=== PATIENT | male | born 1950 | race African-American/Black ===

== ENCOUNTER 2019-12-15 15:20 | Inpatient (IN) | payer MEDICARE, OTHER ==
[~2019-12-15 15:20] MED LIST: Iopamidol 370 76% 100 ML VIAL ONE
[2019-12-15] MEDS ORDERED: Ondansetron PF 4 MG/2 ML Vial IVP PRN (16:48)
[2019-12-15] MEDS ORDERED: Dextrose 50% Abboject 50 ML SYRINGE SLOW IVP PRN (16:58)
[2019-12-15] MEDS ORDERED: Dextrose 5% in Water 1,000 ML IV PRN (16:58)
--- NOTE | 2019-12-15 17:38 | CT ---
CTA CHEST WITH CONTRAST: Technique: Axial tomograms were obtained following angio protocol with multiplanar reconstruction and 3D post processing. Indications: Sepsis. Foot wound. Covid. FINDINGS: Pulmonary arteries show adequate opacification. There is no evidence of pulmonary embolus. Thoracic a marni is unremarkable. No dissection or aneurysm. Bilateral lung gunderson show bilateral pleural effusions which are moderate sized. This results in comp ressive atelectasis. There are patchy confluent infiltrates seen throughout both upper lobes, right middle lobe, and porti ons of the lower lobes that are aerated. These patchy areas of dense alveolar consolidation could rep resent Covid pneumonia or bacterial pneumonia. Mediastinum shows nonspecific mediastinal and hilar adenopathy. Images through the upper abdomen are unremarkable. IMPRESSION: 1. No evidence of pulmonary embolus. 2. Moderate bilateral pleural effusions with compressive atelectasis. 3. Patchy infiltrates seen throughout both lungs. The infiltrates are nonspecific and could represent bacterial or viral pneumonia. POS: AGW
--- NOTE | 2019-12-15 18:00 | HP ---
CHIEF COMPLAINT: Shortness of breath. HISTORY OF PRESENT ILLNESS: The patient is a 69-year-old male with past medical history of hypertension, diabetes mellitus type 2, hyperlipidemia, atrial fibrillation, and peripheral vascular disease, who recently had a partial amputation of his right great toe due to osteomyelitis and gangrene and also had a revascularization surgery with balloon angioplasty of his right lower extremity arteries. The patient was discharged with a wound VAC and oral antibiotics per ID recommendations. During followup from Home Health today, they noted the patient was short of breath and he was instructed to seek ER attention. In the ED, the patient was found to be hypoxic and his chest x-ray revealed bilateral infiltrates with differential diagnosis including volume overload versus COVID-19. We were asked to assess this patient for further management. PAST MEDICAL HISTORY: Osteomyelitis of the right great toe, peripheral vascular disease, atrial fibrillation, hypertension, and hyperlipidemia. PAST SURGICAL HISTORY: Amputation of the right great toe and revascularization of the right lower extremity and peripheral vascular disease. ALLERGIES: NO KNOWN DRUG ALLERGIES. SOCIAL HISTORY: The patient is a former smoker. Denies alcohol use or illicit drug use. PHYSICAL EXAMINATION: GENERAL: The patient is alert and oriented x3. HEENT: Head is normocephalic and atraumatic. Extraocular muscles are intact. Pupils equal and reactive to light. CHEST: Auscultation revealed crackles bilaterally. CARDIOVASCULAR: Normal S1 and S2. No murmurs, rubs or gallops. ABDOMEN: Soft, nontender, and nondistended. NEUROLOGIC: Unremarkable. ASSESSMENT: 1. Sepsis. 2. Acute hypoxic respiratory failure. 3. Pneumonia versus COVID-19 versus pulmonary edema. 4. Recent history of osteomyelitis of the right great toe. PLAN: 1. Admit to telemetry. Start IV vancomycin and cefepime, pharmacy to dose. 2. Follow up on COVID-19 test results. 3. Start Lasix 20 mg IV twice daily. 4. Check echocardiogram. 5. Wound care consult. 6. Check 2 sets of blood cultures. 7. Heparin for DVT prophylaxis. Job ID: [id number]
[2019-12-15 19:51] LABS: Troponin I 0.018 ng/mL (< 0.028)
[2019-12-15 20:55] LABS: Troponin I 0.029 ng/mL (< 0.028)
[2019-12-16] MEDS: Cefepime 1 GM in Sodium Chloride 0.9% 100 ML IVPB SCH ×3 (00:25→23:09)
[2019-12-16] MEDS: metFORMIN 500 MG TAB PO SCH ×2 (00:45→10:03)
[2019-12-16] MEDS: Atorvastatin Calcium 20 MG TAB PO SCH ×2 (00:46→20:42)
[2019-12-16] MEDS: Lactinex Tablet PO SCH ×3 (00:46→20:42)
[2019-12-16] MEDS: Heparin 5,000 UNITS/ML VIAL SC SCH ×4 (00:46→20:43)
[2019-12-16] MEDS: hydrALAZINE 20 MG/ML VIAL SLOW IVP PRN ×3 (01:02→20:43)
[2019-12-16 04:58] LABS: #Basophils 0.1 thou/uL (0.0-0.2); #Eosinphils 0.1 thou/uL (0.0-0.7); #Lymphocytes 1.5 thou/uL (1.20-3.40); #Monocytes 0.9 thou/uL (0.11-0.59); #Neutrophils 12.1 thou/uL (1.40-6.50); %Basophils 0.5 % (0.0-1.0); %Eosinophils 0.6 % (0.0-10.0); %Lymphocytes 10.4 % (21.0-51.0); %Monocytes 6.1 % (0.0-10.0); %Neutrophils 82.3 % (42.0-75.0); Hemoglobin 8.9 g/dL (14.0-18.0); Mean Corpuscular HGB CONC 32.7 g/dL (32.0-36.0); Mean Corpuscular Hemoglobin 30.1 pg (27.0-31.0); Mean Corpuscular Volume 92.2 fL (78.0-98.0); Mean Platelet Volume 7.1 fL (7.4-10.4); Platelet Count 615 thou/uL (130-400); RBC Distribution Width 12.4 % (11.5-14.5); Red Blood Cell (RBC) Count 2.95 mill/uL (4.70-6.10); White Blood Cell (WBC) Count 14.7 thou/uL (4.8-10.8)
[2019-12-16 05:14] LABS: Anion Gap 14 mmol/L (10-20); BUN (Urea Nitrogen) 21 mg/dL (8.4-25.7); Calc. Creatinine Clearance 95 mL/min (70-130); Calcium 8.5 mg/dL (7.8-10.44); Carbon Dioxide 21 mmol/L (23-31); Chloride 110 mmol/L (98-107); Estimated GFR-MDRD 73; Glucose 178 mg/dL (80-115); Potassium 3.8 mmol/L (3.5-5.1); Sodium 141 mmol/L (136-145)
[2019-12-16] MEDS ORDERED: Furosemide 20 MG/2 ML VIAL SLOW IVP SCH (06:00)
[2019-12-16] MEDS: Amlodipine 5 MG TAB PO SCH (10:03)
[2019-12-16] MEDS: Alogliptin 6.25 MG TAB PO SCH (10:03)
[2019-12-16] MEDS: Clopidogrel Bisulfate 75 MG TAB PO SCH (10:03)
[2019-12-16] MEDS: HumaLOG 300 UNITS/3 ML VIAL SC PRN ×2 (10:15→12:46)
[2019-12-16] MEDS: prednisoLONE 1% Ophth Susp 5 ml Bottle EA EYE SCH (12:57)
[2019-12-16] MEDS ORDERED: Sodium Chloride 0.9% 10 ML ONE (14:06)
[2019-12-16] MEDS: Vancomycin HCl 1.75 GM in Sodium Chloride 0.9% 500 ML IVPB SCH (14:29)
[2019-12-16] MEDS: Furosemide 40 MG/4 ML VIAL SLOW IVP SCH (14:29)
[2019-12-16] MEDS: Amlodipine 5 mg/Benazepril 20 mg CAP PO SCH (14:30)
[2019-12-16 14:37] LABS: INR-International Normal Ratio 1.3; Prothrombin Time 16.1 sec (12.0-14.7)
--- NOTE | 2019-12-16 14:51 | PDOC.HOSPP ---
- Subjective Encounter Date: 12/16/19 Subjective: It atrial fibrillationThe patient stated that his shortness of breath has been improving. - Objective Vital Signs & Weight: Vital Signs (12 hours) Temp Pulse Pulse Resp BP BP BP 12/16/19 11:37 97.6 F 96 19 12/16/19 10:36 98 164/79 H 195/86 H 12/16/19 10:19 86 186/86 H 12/16/19 10:03 86 186/86 H 12/16/19 07:46 98.3 F 86 20 12/16/19 03:20 98.3 F 96 20 BP Pulse Ox Pulse Ox Pulse Ox 12/16/19 11:37 156/70 H 93 L 12/16/19 10:36 93 L 113 H 12/16/19 10:19 12/16/19 10:03 12/16/19 07:46 186/86 H 95 12/16/19 03:20 171/81 H 95 Weight Admit Weight 253 lb 3.2 oz Weight 253 lb 3.2 oz Result Diagrams: 12/16/19 04:31 12/16/19 04:31 Additional Labs: Accuchecks 12/16/19 12/16/19 11:22 06:10 POC Glucose 195 H 189 H Hospitalist ROS - Medication Medications: Active Medications Generic Name Dose Route Start Last Admin Trade Name Freq PRN Reason Stop Dose Admin Acidophilus 1 tab 12/15/19 21:00 12/16/19 10:02 Floranex PO 1 tab BID ERWIN Administration Alogliptin Benzoate 6.25 mg 12/16/19 09:00 12/16/19 10:03 Alogliptin PO 6.25 mg DAILY ERWIN Administration Amlodipine Besylate 5 mg 12/16/19 09:00 12/16/19 10:03 Norvasc PO 5 mg DAILY ERWIN Administration Amlodipine/Benazepril HCl 2 cap 12/16/19 11:30 12/16/19 14:30 Lotrel 5/20 PO 2 cap DAILY ERWIN Administration Atorvastatin Calcium 20 mg 12/15/19 21:00 12/16/19 00:46 Lipitor PO 20 mg HS ERWIN Administration Clopidogrel Bisulfate 75 mg 12/16/19 09:00 12/16/19 10:03 Plavix PO 75 mg DAILY ERWIN Administration Furosemide 40 mg 12/16/19 14:00 12/16/19 14:29 Lasix SLOW IVP 40 mg 0600,1400 ERWIN Administration Heparin Sodium (Porcine) 5,000 units 12/15/19 21:00 12/16/19 14:31 Heparin SC 5,000 units TID ERWIN Administration Hydralazine HCl 10 mg 12/16/19 00:34 12/16/19 10:19 Apresoline SLOW IVP 10 mg Q4H PRN Administration SBP > 180 or DBP > 105 Cefepime HCl 1 gm/ Sodium 100 mls @ 200 mls/hr 12/15/19 23:00 12/16/19 10:00 Chloride IVPB 100 mls 1100,2300 ERWIN Administration Vancomycin HCl 1.75 gm/ Sodium 500 mls @ 250 mls/hr 12/16/19 13:00 12/16/19 14:29 Chloride IVPB 500 mls Q24HR@1300 ERWIN Administration Insulin Human Lispro 0 units 12/15/19 16:58 12/16/19 12:46 Humalog SC 2 unit .MODERATE SLIDING SC PRN Administration Moderate Correctional Scale Prednisolone Acetate 1 drop 12/17/19 09:00 12/16/19 12:57 Econopred Plus 1% Opth Susp EA EYE 1 drop DAILY ERWIN Administration - Exam General Appearance: awake alert ENT: normocephalic atraumatic Neck: supple, no JVD Heart: RRR Respiratory: normal chest expansion, no tachypnea Neurological: cranial nerve grossly intact, no focal deficits Hosp A/P (1) Bilateral pneumonia Code(s): J18.9 - PNEUMONIA, UNSPECIFIED ORGANISM Status: Acute (2) Acute respiratory failure with hypoxia Code(s): J96.01 - ACUTE RESPIRATORY FAILURE WITH HYPOXIA Status: Acute (3) Bilateral pleural effusion Code(s): J90 - PLEURAL EFFUSION, NOT ELSEWHERE CLASSIFIED Status: Acute (4) Suspected CHF (congestive heart failure) Code(s): R09.89 - OTH SYMPTOMS AND SIGNS INVOLVING THE CIRC AND RESP SYSTEMS Status: Acute (5) Atrial fibrillation Code(s): I48.91 - UNSPECIFIED ATRIAL FIBRILLATION Status: Acute (6) Osteomyelitis of great toe of right foot Code(s): M86.9 - OSTEOMYELITIS, UNSPECIFIED Status: Acute (7) Peripheral vascular disease Code(s): I73.9 - PERIPHERAL VASCULAR DISEASE, UNSPECIFIED Status: Acute (8) Sepsis Code(s): A41.9 - SEPSIS, UNSPECIFIED ORGANISM Status: Acute - Plan Sepsis and respiratory failure likely due to bilateral pneumonia with parapneumonic effusions. CHF with exacerbation is also in the differential. Continue IV antibiotics and diuresis. Hold Plavix for thoracentesis on Sunday. Consult surgery for evaluation of his necrotic wound in his right foot. ID consulted. His rapid COVID-19 test is negative.
--- NOTE | 2019-12-16 16:54 | CON ---
DATE OF CONSULTATION: HISTORY OF PRESENT ILLNESS: Tony Aguayo is a 69-year-old black male patient, admitted by the hospitalist today for complaints of dyspnea. He had COVID test, is negative. He has infiltrates and has been treated for pneumonia. He was started on IV vancomycin and cefepime. I have been asked to see him regarding his right foot. He has dry gangrene of his right great toe and ulceration of the plantar heel area. The patient was seen earlier this month at [facility] where Dr. Scott and Dr. Leander Case attending right foot problem. He has PAD. There is no history of smoking, but he does have diabetes and hypertension. Dr. Scott on 12/08/2019 performed an arteriogram, noting that he had mild arteriosclerotic disease in his iliac and superficial femoral artery, although not occlusive. He underwent RIG BUILDER of his right anterior tib, right tibioperoneal trunk with balloon angioplasty. He was noted to have right posterior tibial artery occlusion and mid stenosis in the right tibioperoneal trunk. Left side revealed 10% stenosis in the common iliac artery. Left external iliac artery normal. Left common femoral artery patent. No documentation of his peripheral runoff was given. He then underwent partial amputation of his right great toe with a Cecil drain placed and partial closure. Of note is that he has dry gangrene of the distal half of his great toe right and now plantar ulcer. There is no evidence of infection currently. ALLERGIES: NONE. HABITS: Tobacco, none. Alcohol, none. Drug use, none. MEDICATIONS: Outpatient: 1. Multivitamins. 2. Amlodipine. 3. Cipro. 4. Atorvastatin. 5. Augmentin. 6. Lactobacillus. 7. Plavix. 8. Prednisone. 9. Aspirin. 10. Insulin. 11. Metformin. PAST SURGICAL HISTORY: 1. Right foot surgery as noted. 2. Previous endoscopies in 2015, upper and lower endoscopy, Dr. Ruth Morris. PAST MEDICAL HISTORY: 1. Osteomyelitis, right great toe. 2. PAD. 3. Atrial fibrillation. 4. Hypertension. 5. Hyperlipidemia. 6. Diabetes mellitus. REVIEW OF SYSTEMS: Ten-point noncontributory otherwise. PHYSICAL EXAMINATION: VITAL SIGNS: Height 5 feet 9 inches, weight 253 pounds, 37 BMI, temperature 97.6, heart rate 96, and blood pressure 150/70. HEAD, EARS, EYES, NOSE, AND THROAT: Unremarkable. LUNGS: Clear to auscultation. CARDIAC: Regular rate and rhythm without murmur or gallop. ABDOMEN: Soft and nontender. EXTREMITIES: Palpable femoral pulses. Mild edema of both ankles. Right great toe dry gangrene. Reed present, removed. Sutures present in the necrotic skin flaps, right great toe from proximal amputation. Plantar wound under the calcaneus with desiccated subcutaneous tissue, necrotic, without cellulitis, without infection, without purulence. There is some underlying. ASSESSMENT AND PLAN: 1. Peripheral arterial disease with dry gangrene, right great toe, status post interventions by Dr. Scott. We would plan amputation of the right great toe more proximally. There is a possibility this may not heal. We will ask Wound Care to tend this wound and let it heal secondarily. 2. Plantar right heel ulceration, although this is not decubitus exactly. I would advise he keep his weight off his heels and local wound care after debridement of the heel ulcer. He is at risk of limb loss and we will see how he fares after the above interventions. 3. Diabetes mellitus. 4. Hypertension. 5. Peripheral arterial disease. 6. Pneumonia. Antibiotics per Medical. 7. COVID negative. Job ID: [id number]
--- NOTE | 2019-12-16 18:50 | CON ---
DATE OF CONSULTATION: 12/16/2019 REASON FOR CONSULTATION: Pulmonary edema, possible infection. HISTORY OF PRESENT ILLNESS: A 69-year-old whom we had seen recently when he presented with history of type 2 diabetes and PVD, who developed progressively worsening inflammatory changes with gangrene of the right great toe, associated with an open wound in the bottom of his heel. The patient had a vascular evaluation and had a revascularization procedure and that consisted of balloon angioplasty in the right anterior tibial artery, right tibioperoneal trunk, and right peroneal artery. He had a partial amputation of the toe and debridement of the heel. He was discharged on 12/10 on Cipro, Augmentin, Plavix, metformin, glipizide, and Januvia. At home, he was followed by home health nurse and then the nurse noticed that he was having trouble breathing, so she referred him to [facility] and was given a broad-spectrum antimicrobial coverage and he was admitted. Initial findings included BP 150/104, pulse 102, respirations 22, temperature 98.3, and O2 saturation 95. On arrival, he did not appear in distress. There is no jugular vein distention. Lung exam showed clear lungs sounds without wheezing. The abdomen is soft. The heart exam was normal. He had a wound VAC in place at the heel of the right foot and a Reed drain in the large toe of the right foot. The patient currently is feeling better. He has no more dyspnea. He is breathing with room air O2 sats. He denies any headaches. No chest pain. No abdominal pain. He is voiding in the urinal. He was given diuretics. PAST MEDICAL HISTORY: Includes: 1. Type 2 diabetes. 2. Peripheral vascular disease. 3. Hypertension. 4. Hyperlipidemia. FAMILY HISTORY: Noncontributory. PAST SURGICAL HISTORY: 1. Partial amputation of right 1st toe. 2. Revascularization procedure with various SOFT MUD MOLDER and stents recently. 3. He has had colonoscopies and polypectomy. SOCIAL HISTORY: Former smoker, quit 35 years ago. Retired. Lives in [place] with family. CURRENT MEDICATION LIST: 1. Floranex. 2. Alogliptin. 3. Norvasc. 4. Lotrel. 5. Ecotrin. 6. Lipitor. 7. Cefepime. 8. Plavix. 9. Lovenox. 10. Lasix. 11. Heparin. 12. Insulin. 13. Zofran. 14. Prednisolone eye drops. 15. Vancomycin. PHYSICAL EXAMINATION: VITAL SIGNS: He has been afebrile since admission. Blood pressure 150/70, pulse 96, respirations 19, and O2 saturation ranging from 93 to 98 and he is on room air O2 and right now he had been on 1.5 L/minute. SKIN: The area of gangrene at the very tip of the amputation site and the heel area shows desiccated subcutaneous tissue, but no obvious inflammatory process. The toe stump site has dry gangrene. HEENT: He has some periorbital edema. His oral cavity with numerous missing teeth. NECK: Supple. LUNGS: Symmetric air entry without crackles or wheezing. HEART: S1 and S2. Regular rate. ABDOMEN: Soft, not distended or tender. No ascites. No bladder distention. EXTREMITIES: No joint inflammatory activity. Popliteal pulses are 1+ and faintly palpable dorsalis pedis, LABORATORY DATA: White cell count 14.7, hemoglobin 8.9, platelets 615, and 82% neutrophils. Creatinine 1.19, which is lower than on admission. Two sets of blood cultures preliminary, no growth to date. ASSESSMENT AND DISCUSSION: 1. Type 2 diabetes. 2. Peripheral vascular disease. 3. Necrotic right distal 1st toe with dry gangrene with partial amputation and areas of ulceration in the right heel. The patient has had revascularization, but has some areas still of questionable viability in the foot. This decompensation now appears to be related to pulmonary edema rather than an infectious pneumonitis. His repeat COVID test was negative and I would advise discontinuation of antimicrobial therapy once the blood culture results are posted hopefully by tomorrow. Job ID: [id number]
[2019-12-16] MEDS ORDERED: Enoxaparin Sodium 40 MG/0.4 ML SYRINGE SC SCH (21:00)
[2019-12-17] MEDS: hydrALAZINE 20 MG/ML VIAL SLOW IVP PRN (03:31)
[2019-12-17] MEDS: HYDROcodone/Acetaminophen 5/325 mg Tablet PO PRN (03:32)
[2019-12-17 03:44] LABS: #Eosinphils 0.1 thou/uL (0.0-0.7); %Basophils 0.3 % (0.0-1.0); %Eosinophils 0.9 % (0.0-10.0); %Lymphocytes 16.4 % (21.0-51.0); %Monocytes 8.2 % (0.0-10.0); %Neutrophils 74.2 % (42.0-75.0); Hemoglobin 8.8 g/dL (14.0-18.0); Mean Corpuscular HGB CONC 32.7 g/dL (32.0-36.0); Mean Corpuscular Hemoglobin 30.1 pg (27.0-31.0); Mean Corpuscular Volume 92.1 fL (78.0-98.0); Mean Platelet Volume 7.4 fL (7.4-10.4); Platelet Count 617 thou/uL (130-400); RBC Distribution Width 12.4 % (11.5-14.5); Red Blood Cell (RBC) Count 2.91 mill/uL (4.70-6.10); White Blood Cell (WBC) Count 12.2 thou/uL (4.8-10.8)
[2019-12-17 04:05] LABS: Anion Gap 13 mmol/L (10-20); BUN (Urea Nitrogen) 25 mg/dL (8.4-25.7); Calc. Creatinine Clearance 84 mL/min (70-130); Calcium 8.1 mg/dL (7.8-10.44); Carbon Dioxide 21 mmol/L (23-31); Chloride 110 mmol/L (98-107); Estimated GFR-MDRD 64; Glucose 181 mg/dL (80-115); Potassium 3.5 mmol/L (3.5-5.1); Sodium 140 mmol/L (136-145)
[2019-12-17] MEDS: Furosemide 40 MG/4 ML VIAL SLOW IVP SCH ×2 (05:26→13:45)
[2019-12-17] MEDS: HumaLOG 300 UNITS/3 ML VIAL SC PRN ×3 (05:59→17:03)
[2019-12-17] MEDS: Aspirin 81 mg Enteric Coated Tablet PO SCH (09:24)
[2019-12-17] MEDS: Amlodipine 5 mg/Benazepril 20 mg CAP PO SCH (09:24)
[2019-12-17] MEDS: Lactinex Tablet PO SCH ×2 (09:24→20:35)
[2019-12-17] MEDS: Alogliptin 6.25 MG TAB PO SCH (09:26)
[2019-12-17] MEDS: Amlodipine 5 MG TAB PO SCH (09:26)
[2019-12-17] MEDS: Heparin 5,000 UNITS/ML VIAL SC SCH ×3 (09:26→20:35)
[2019-12-17] MEDS: prednisoLONE 1% Ophth Susp 5 ml Bottle EA EYE SCH (09:27)
[2019-12-17] MEDS: Cefepime 1 GM in Sodium Chloride 0.9% 100 ML IVPB SCH ×2 (11:18→23:52)
[2019-12-17 12:33] LABS: Vancomycin, Trough 21.5 ug/mL
[2019-12-17] MEDS: Vancomycin HCl 1.75 GM in Sodium Chloride 0.9% 500 ML IVPB SCH (13:22)
[2019-12-17] MEDS ORDERED: Vancomycin HCl 1.5 GM in Sodium Chloride 0.9% 250 ML 300 ML IVPB SCH (14:00)
--- NOTE | 2019-12-17 14:36 | PDOC.HOSPP ---
- Subjective Encounter Date: 12/17/19 Subjective: The patient stated that for shortness of breath is improving compared to yesterday. - Objective Vital Signs & Weight: Vital Signs (12 hours) Temp Pulse Resp BP BP BP Pulse Ox 12/17/19 11:17 98.3 F 98 18 178/77 H 93 L 12/17/19 09:00 97.4 F L 92 18 136/64 93 L 12/17/19 03:31 92 187/78 H 12/17/19 03:12 97.7 F 92 20 187/78 H 92 L Weight Admit Weight 253 lb 3.2 oz Weight 254 lb 3.2 oz I&O: 12/16/19 12/17/19 12/18/19 06:59 06:59 06:59 Intake Total 1662 Output Total 900 Balance 762 Result Diagrams: 12/17/19 03:23 12/17/19 03:23 Additional Labs: Accuchecks 12/17/19 12/17/19 12/16/19 10:47 05:18 20:07 POC Glucose 183 H 191 H 148 H 12/16/19 16:23 POC Glucose 165 H Hospitalist ROS - Medication Medications: Active Medications Generic Name Dose Route Start Last Admin Trade Name Freq PRN Reason Stop Dose Admin Hydrocodone Bitart/Acetaminophen 1 tab 12/15/19 16:48 12/17/19 03:32 [place]xe 5/325 PO 1 tab Q4H PRN Administration Moderate Pain (4-6) Acidophilus 1 tab 12/15/19 21:00 12/17/19 09:24 Floranex PO 1 tab BID ERWIN Administration Alogliptin Benzoate 6.25 mg 12/16/19 09:00 12/17/19 09:26 Alogliptin PO 6.25 mg DAILY ERWIN Administration Amlodipine Besylate 5 mg 12/16/19 09:00 12/17/19 09:26 Norvasc PO 5 mg DAILY ERWIN Administration Amlodipine/Benazepril HCl 2 cap 12/16/19 11:30 12/17/19 09:24 Lotrel 5/20 PO 2 cap DAILY ERWIN Administration Aspirin 81 mg 12/17/19 09:00 12/17/19 09:24 Ecotrin PO 81 mg DAILY ERWIN Administration Atorvastatin Calcium 20 mg 12/15/19 21:00 12/16/19 20:42 Lipitor PO 20 mg HS ERWIN Administration Clopidogrel Bisulfate 75 mg 12/16/19 09:00 12/16/19 10:03 Plavix PO 75 mg DAILY ERWIN Administration Furosemide 40 mg 12/17/19 14:00 12/17/19 13:45 Lasix SLOW IVP 40 mg 0600,1400 ERWIN Administration Heparin Sodium (Porcine) 5,000 units 12/15/19 21:00 12/17/19 13:46 Heparin SC 5,000 units TID ERWIN Administration Hydralazine HCl 10 mg 12/16/19 00:34 12/17/19 03:31 Apresoline SLOW IVP 10 mg Q4H PRN Administration SBP > 180 or DBP > 105 Cefepime HCl 1 gm/ Sodium 100 mls @ 200 mls/hr 12/15/19 23:00 12/17/19 11:18 Chloride IVPB 100 mls 1100,2300 ERWIN Administration Insulin Human Lispro 0 units 12/15/19 16:58 12/17/19 11:18 Humalog SC 2 unit .MODERATE SLIDING SC PRN Administration Moderate Correctional Scale Prednisolone Acetate 1 drop 12/17/19 09:00 12/17/19 09:27 Econopred Plus 1% Opth Susp EA EYE 1 drop DAILY ERWIN Administration - Exam General Appearance: awake alert ENT: normocephalic atraumatic Neck: supple Heart: RRR Respiratory: normal chest expansion, no tachypnea, rhonchi Neurological: cranial nerve grossly intact, no focal deficits Hosp A/P (1) Bilateral pneumonia Code(s): J18.9 - PNEUMONIA, UNSPECIFIED ORGANISM Status: Acute (2) Acute respiratory failure with hypoxia Code(s): J96.01 - ACUTE RESPIRATORY FAILURE WITH HYPOXIA Status: Acute (3) Bilateral pleural effusion Code(s): J90 - PLEURAL EFFUSION, NOT ELSEWHERE CLASSIFIED Status: Acute (4) Suspected CHF (congestive heart failure) Code(s): R09.89 - OTH SYMPTOMS AND SIGNS INVOLVING THE CIRC AND RESP SYSTEMS Status: Acute (5) Atrial fibrillation Code(s): I48.91 - UNSPECIFIED ATRIAL FIBRILLATION Status: Acute (6) Osteomyelitis of great toe of right foot Code(s): M86.9 - OSTEOMYELITIS, UNSPECIFIED Status: Acute (7) Peripheral vascular disease Code(s): I73.9 - PERIPHERAL VASCULAR DISEASE, UNSPECIFIED Status: Acute (8) Sepsis Code(s): A41.9 - SEPSIS, UNSPECIFIED ORGANISM Status: Acute - Plan Sepsis and respiratory failure likely due to bilateral pneumonia with parapneumonic effusions. CHF with exacerbation is also in the differential. Continue IV antibiotics and diuresis. Leukocytosis is improving. Echocardiogram revealed that the EF is 55 to 60%. BNP is elevated. Hold Plavix for thoracentesis on Sunday. Consult surgery for evaluation of his necrotic wound in his right foot. ID consulted. His rapid COVID-19 test is negative.
[2019-12-17] MEDS: Vancomycin 1.5 GRAM/300 ML BAG 1.5 GM in Premix Bag 1 BAG IVPB SCH (15:05)
[2019-12-17] MEDS: Atorvastatin Calcium 20 MG TAB PO SCH (20:35)
[2019-12-18] MEDS: Furosemide 40 MG/4 ML VIAL SLOW IVP SCH ×2 (05:53→13:25)
[2019-12-18 06:50] LABS: #Basophils 0.1 thou/uL (0.0-0.2); #Eosinphils 0.1 thou/uL (0.0-0.7); #Lymphocytes 2.1 thou/uL (1.20-3.40); #Monocytes 0.9 thou/uL (0.11-0.59); #Neutrophils 7.5 thou/uL (1.40-6.50); %Basophils 0.6 % (0.0-1.0); %Eosinophils 1.3 % (0.0-10.0); %Lymphocytes 19.8 % (21.0-51.0); %Monocytes 8.5 % (0.0-10.0); %Neutrophils 69.8 % (42.0-75.0); Hemoglobin 9.7 g/dL (14.0-18.0); Mean Corpuscular HGB CONC 32.1 g/dL (32.0-36.0); Mean Corpuscular Hemoglobin 30.2 pg (27.0-31.0); Mean Corpuscular Volume 94.2 fL (78.0-98.0); Mean Platelet Volume 7.3 fL (7.4-10.4); Platelet Count 642 thou/uL (130-400); RBC Distribution Width 12.5 % (11.5-14.5); Red Blood Cell (RBC) Count 3.22 mill/uL (4.70-6.10); White Blood Cell (WBC) Count 10.7 thou/uL (4.8-10.8)
[2019-12-18 07:07] LABS: Anion Gap 16 mmol/L (10-20); BUN (Urea Nitrogen) 24 mg/dL (8.4-25.7); Calc. Creatinine Clearance 80 mL/min (70-130); Calcium 8.3 mg/dL (7.8-10.44); Carbon Dioxide 18 mmol/L (23-31); Chloride 110 mmol/L (98-107); Estimated GFR-MDRD 59; Glucose 135 mg/dL (80-115); Potassium 3.8 mmol/L (3.5-5.1); Sodium 140 mmol/L (136-145)
[2019-12-18] MEDS: Aspirin 81 mg Enteric Coated Tablet PO SCH (08:12)
[2019-12-18] MEDS: Heparin 5,000 UNITS/ML VIAL SC SCH ×3 (08:12→20:23)
[2019-12-18] MEDS: Amlodipine 5 MG TAB PO SCH (08:12)
[2019-12-18] MEDS: Lactinex Tablet PO SCH ×2 (08:12→20:23)
[2019-12-18] MEDS: Alogliptin 6.25 MG TAB PO SCH (08:12)
[2019-12-18] MEDS: prednisoLONE 1% Ophth Susp 5 ml Bottle EA EYE SCH (08:13)
[2019-12-18] MEDS: Amlodipine 5 mg/Benazepril 20 mg CAP PO SCH (08:57)
[2019-12-18] MEDS: Cefepime 1 GM in Sodium Chloride 0.9% 100 ML IVPB SCH ×2 (10:44→23:20)
[2019-12-18] MEDS: HumaLOG 300 UNITS/3 ML VIAL SC PRN ×2 (10:45→17:03)
--- NOTE | 2019-12-18 10:52 | PQF ---
CLINICAL DOCUMENTATION CLARIFICATION FORM: Patient Name: JIGAR WALDROP Date of : 1950 Account: [id number] Admit Date: 12/15/2019 Facility: [facility] - [facility] Dear Dr. Hussain JORGENSEN Date: 12/18/2019 1031 Please exercise your independent, professional judgment in responding to the clarification form. Clinical indicators are provided on the bottom of this form for your review. Please check appropriate box(es): CONGESTIVE HEART FAILURE: A. ACUITY [ ] Acute [ > ] Acute on Chronic [ ] Chronic B. TYPE: [ ] Systolic / HFrEF [ >] Diastolic / HFpEF [ ] Combined Systolic / Diastolic [ ] Other diagnosis [ ] Unable to determine In addition, please specify: Present on Admission (POA): [ > ] Yes [ ] No [ ] Unable to determine For continuity of documentation, please document condition throughout progress notes and discharge summary. Thank You. To be completed by CDI/Coding staff for physician review: CLINICAL INDICATORS - SIGNS / SYMPTOMS / LABS / RESULTS AND LOCATION IN EMR 12/15 BNP 545.0 12/15 ECHO REPORT: EF 55-60%, PT IS TACHYCARDIC, MILD CONCENTRIC LEFT VENTRICULAR HYPERTROPHY, THE LEFT ATRIUM IS MILD TO MODERATE DILATED, MILD MITRAL REGURGITATION IS PRESENT. NO EVIDENCE OF MITRAL VALVE STENOSIS, STRUCTURALLY NORMAL AORTIC VALVE WITH NO SIGNIFICANT STENOSIS OR REGURGITATION. 12/17 PN (JOSLYN) CHF EXACERBATION IS ALSO IN THE DIFFERENTIAL, BNP IS ELEVATED , A/P:4). SUSPECTED CONGESTIVE HEART FAILURE. RISKS FACTORS / RESULTS AND LOCATION IN EMR DX: ACUTE RESPIRATORY FAILURE WITH HYPOXIA, BILATERAL PLEURAL EFFUSIONS (PN/ JOSLYN) 12/17 TREATMENTS / RESULTS AND LOCATION IN EMR LASIX IV ( 12/16- PRESENT) SUPPLEMENTAL OXYGEN ( 12/14-12/15) ECHO ORDERED ( 12/15) THANK YOU! JASON [facility] Signature: JASON BURNETTE RN Phone #: [phone] Date: 12/18/2019 1031 This is a permanent part of the Medical Record [facility]
[2019-12-18] MEDS: Vancomycin 1.5 GRAM/300 ML BAG 1.5 GM in Premix Bag 1 BAG IVPB SCH (13:25)
--- NOTE | 2019-12-18 15:19 | PDOC.HOSPP ---
- Subjective Encounter Date: 12/18/19 Subjective: The patient's respiratory status has been improving since admission. - Objective Vital Signs & Weight: Vital Signs (12 hours) Temp Pulse Resp BP BP Pulse Ox 12/18/19 11:00 98.2 F 75 18 151/75 H 96 12/18/19 08:12 81 182/77 H 12/18/19 08:00 97.9 F 81 18 182/77 H 96 12/18/19 04:00 98.0 F 88 18 163/66 H 93 L Weight Admit Weight 253 lb 3.2 oz Weight 256 lb I&O: 12/17/19 12/18/19 12/19/19 06:59 06:59 06:59 Intake Total 1662 700 Output Total 900 800 Balance 762 -100 Result Diagrams: 12/18/19 06:27 12/18/19 06:27 Additional Labs: Accuchecks 12/18/19 12/18/19 12/17/19 10:49 05:27 19:56 POC Glucose 237 H 142 H 190 H 12/17/19 16:50 POC Glucose 185 H Hospitalist ROS - Medication Medications: Active Medications Generic Name Dose Route Start Last Admin Trade Name Freq PRN Reason Stop Dose Admin Hydrocodone Bitart/Acetaminophen 1 tab 12/15/19 16:48 12/17/19 03:32 [place] 5/325 PO 1 tab Q4H PRN Administration Moderate Pain (4-6) Acidophilus 1 tab 12/15/19 21:00 12/18/19 08:12 Floranex PO 1 tab BID ERWIN Administration Alogliptin Benzoate 6.25 mg 12/16/19 09:00 12/18/19 08:12 Alogliptin PO 6.25 mg DAILY ERWIN Administration Aspirin 81 mg 12/17/19 09:00 12/18/19 08:12 Ecotrin PO 81 mg DAILY ERWIN Administration Atorvastatin Calcium 20 mg 12/15/19 21:00 12/17/19 20:35 Lipitor PO 20 mg HS ERWIN Administration Clopidogrel Bisulfate 75 mg 12/16/19 09:00 12/16/19 10:03 Plavix PO 75 mg DAILY ERWIN Administration Heparin Sodium (Porcine) 5,000 units 12/15/19 21:00 12/18/19 08:12 Heparin SC 5,000 units TID ERWIN Administration Hydralazine HCl 10 mg 12/16/19 00:34 12/17/19 03:31 Apresoline SLOW IVP 10 mg Q4H PRN Administration SBP > 180 or DBP > 105 Cefepime HCl 1 gm/ Sodium 100 mls @ 200 mls/hr 12/15/19 23:00 12/18/19 10:44 Chloride IVPB 100 mls 1100,2300 ERWIN Administration Vancomycin HCl 1.5 gm/ Device 300 mls @ 200 mls/hr 12/17/19 14:00 12/18/19 13 :25 IVPB 300 mls 1400 ERWIN Administration Insulin Human Lispro 0 units 12/15/19 16:58 12/18/19 10:45 Humalog SC 4 unit .MODERATE SLIDING SC PRN Administration Moderate Correctional Scale Prednisolone Acetate 1 drop 12/17/19 09:00 12/18/19 08:13 Econopred Plus 1% Opth Susp EA EYE 1 drop DAILY ERWIN Administration - Exam General Appearance: awake alert ENT: normocephalic atraumatic Respiratory: normal chest expansion, no tachypnea Gastrointestinal: soft Neurological: cranial nerve grossly intact, no focal deficits Hosp A/P (1) Bilateral pneumonia Code(s): J18.9 - PNEUMONIA, UNSPECIFIED ORGANISM Status: Acute (2) Acute respiratory failure with hypoxia Code(s): J96.01 - ACUTE RESPIRATORY FAILURE WITH HYPOXIA Status: Acute (3) Bilateral pleural effusion Code(s): J90 - PLEURAL EFFUSION, NOT ELSEWHERE CLASSIFIED Status: Acute (4) Suspected CHF (congestive heart failure) Code(s): R09.89 - OTH SYMPTOMS AND SIGNS INVOLVING THE CIRC AND RESP SYSTEMS Status: Acute (5) Atrial fibrillation Code(s): I48.91 - UNSPECIFIED ATRIAL FIBRILLATION Status: Acute (6) Osteomyelitis of great toe of right foot Code(s): M86.9 - OSTEOMYELITIS, UNSPECIFIED Status: Acute (7) Peripheral vascular disease Code(s): I73.9 - PERIPHERAL VASCULAR DISEASE, UNSPECIFIED Status: Acute (8) Sepsis Code(s): A41.9 - SEPSIS, UNSPECIFIED ORGANISM Status: Acute - Plan Sepsis and respiratory failure likely due to bilateral pneumonia with parapneumonic effusions. CHF with exacerbation is also in the differential. Continue IV antibiotics and diuresis. Leukocytosis is improving. Echocardiogram revealed that the EF is 55 to 60%. BNP is elevated. Hold Plavix for thoracentesis on Sunday. Since the patient has to be Plavix free for 5 days. Surgery planning on debridement tomorrow. Creatinine level is worsening likely due to diuresis. Decrease the dose of IV Lasix. DC lisinopril. Start clonidine 0.1 mg orally 3 times daily for uncontrolled blood pressure. His rapid COVID-19 test is negative.
[2019-12-18] MEDS ORDERED: Amlodipine 5 MG TAB PO SCH (15:30)
[2019-12-18] MEDS: cloNIDine 0.1 MG TAB PO SCH (20:23)
[2019-12-18] MEDS: Atorvastatin Calcium 20 MG TAB PO SCH (20:23)
[2019-12-19] MEDS: Aspirin 81 mg Enteric Coated Tablet PO SCH (09:14)
[2019-12-19] MEDS: cloNIDine 0.1 MG TAB PO SCH ×3 (09:14→20:30)
[2019-12-19] MEDS: Heparin 5,000 UNITS/ML VIAL SC SCH ×3 (09:15→20:28)
[2019-12-19] MEDS: Lactinex Tablet PO SCH ×2 (09:15→20:30)
[2019-12-19] MEDS: prednisoLONE 1% Ophth Susp 5 ml Bottle EA EYE SCH (09:22)
[2019-12-19] MEDS ORDERED: Fentanyl 100 MCG/2 ML VIAL ONE ×2 (11:01→12:55)
[2019-12-19] MEDS ORDERED: Ondansetron PF 4 MG/2 ML Vial ONE (11:35)
[2019-12-19] MEDS ORDERED: Lidocaine 1% PF 5 ML VIAL ONE (11:35)
[2019-12-19] MEDS ORDERED: PROPOFOL 200 MG/20 ML VIAL ONE (11:35)
[2019-12-19] MEDS ORDERED: Acetaminophen 500 MG TAB PO PRN (12:20)
[2019-12-19] MEDS ORDERED: traMADol HCl 50 MG TAB PO PRN (12:20)
--- NOTE | 2019-12-19 12:51 | OP ---
DATE OF PROCEDURE: 12/19/2019 PREOPERATIVE DIAGNOSES: Peripheral artery disease; non-COVID pneumonia; dry gangrene in right great toe; plantar decubitus heel open wound, stage IV, involving the calcaneus; previous intervention by Dr. Scott, tibial vessels; previous partial amputation of right great toe by Dr. Case; poor IV access. POSTOPERATIVE DIAGNOSES: Peripheral artery disease; non-COVID pneumonia; dry gangrene in right great toe; plantar decubitus heel open wound, stage IV, involving the calcaneus; previous intervention by Dr. Scott, tibial vessels; previous partial amputation of right great toe by Dr. Case; poor IV access. PROCEDURES PERFORMED: Amputation of right great toe and metatarsal (attempts to save the phalanx is not possible due to gangrenous tissue). Wound left open for healing by secondary intention and wound VAC applied. Debridement of skin, subcutaneous tissue, muscle, tendon, calcaneus, right plantar foot, stage IV decubitus wound without purulence and without cellulitis. Left subclavian vein triple-lumen catheter. ANESTHESIA: General LMA. DESCRIPTION OF PROCEDURE: The patient was taken to the operating room, where under general anesthesia, left dustin-clavicular was prepared with ChloraPrep and draped in routine fashion. Seldinger technique was used to place a left subclavian central line, removing the J-wire, securing the catheter with 3-0 silk. Sterile dressing applied. Each port aspirated blood and flushed saline solution. Right lower extremity was prepared with Betadine and draped in routine fashion. Incision was made for amputation of the distal right great toe, but there was gangrenous tissue that was not bleeding, would not heal, and more proximal amputation undertaken with amputation of the right great toe and metatarsal with a racquet incision made preserving skin as possible, resecting the metatarsal with a bone cutter and resecting approximately with a rongeur. Hemostasis was gained with cautery as connective tissue debrided. Wound Care Team arrived to place wound VAC. Right heel decubitus, plantar, debrided of necrotic skin and subcutaneous tissue. It was debrided back to bleeding tissue. The defect was about 4.5 cm in diameter. Extended down to the calcaneus, where the periosteum was resected with a rongeur and down to the calcaneus. Portion of the calcaneus was resected with a rongeur. There was good bleeding. Gauze dressing applied and then placed a wound VAC. The patient tolerated the procedure well. Job ID: [id number]
--- NOTE | 2019-12-19 13:48 | RAD ---
PORTABLE CHEST 1 VIEW: Date: 12/19/2019 Time: 1238 hours HISTORY: Central line placement. FINDINGS/IMPRESSION: Comparison made with exam of 12/15/2019. There has been interval placement of a left-sided subclavian central line with tip in the projection of the SVC. No pneumothoraces are seen. Perihilar opacities are again seen with new opacification of the right lower lobe. POS: MZA
[2019-12-19] MEDS: Alogliptin 6.25 MG TAB PO SCH (14:04)
[2019-12-19] MEDS: Furosemide 20 MG/2 ML VIAL SLOW IVP SCH (14:05)
[2019-12-19] MEDS: Amlodipine 10 MG TAB PO SCH (14:05)
[2019-12-19] MEDS: Vancomycin 1.5 GRAM/300 ML BAG 1.5 GM in Premix Bag 1 BAG IVPB SCH (14:10)
--- NOTE | 2019-12-19 14:11 | PDOC.HOSPP ---
- Subjective Encounter Date: 12/19/19 Subjective: For amputation procedure today. - Objective Vital Signs & Weight: Vital Signs (12 hours) Temp Pulse Resp BP Pulse Ox 12/19/19 08:00 95 12/19/19 07:37 97.8 F 65 20 144/66 H 95 Weight Admit Weight 253 lb 3.2 oz Weight 256 lb I&O: 12/18/19 12/19/19 12/20/19 06:59 06:59 06:59 Intake Total 700 2150 Output Total 800 1975 Balance -100 175 Result Diagrams: 12/18/19 06:27 12/18/19 06:27 Additional Labs: Accuchecks 12/19/19 12/19/19 12/18/19 11:04 05:29 20:47 POC Glucose 169 H 167 H 190 H 12/18/19 16:43 POC Glucose 223 H Hospitalist ROS - Medication Medications: Active Medications Generic Name Dose Route Start Last Admin Trade Name Freq PRN Reason Stop Dose Admin Hydrocodone Bitart/Acetaminophen 1 tab 12/15/19 16:48 12/17/19 03:32 [place] 5/325 PO 1 tab Q4H PRN Administration Moderate Pain (4-6) Acidophilus 1 tab 12/15/19 21:00 12/19/19 09:15 Floranex PO Not Given BID ERWIN Alogliptin Benzoate 6.25 mg 12/16/19 09:00 12/18/19 08:12 Alogliptin PO 6.25 mg DAILY ERWIN Administration Aspirin 81 mg 12/17/19 09:00 12/19/19 09:14 Ecotrin PO Not Given DAILY ERWIN Atorvastatin Calcium 20 mg 12/15/19 21:00 12/18/19 20:23 Lipitor PO 20 mg HS ERWIN Administration Clonidine 0.1 mg 12/18/19 21:00 12/19/19 09:14 Catapres PO Not Given TID ERWIN Clopidogrel Bisulfate 75 mg 12/16/19 09:00 12/16/19 10:03 Plavix PO 75 mg DAILY ERWIN Administration Heparin Sodium (Porcine) 5,000 units 12/15/19 21:00 12/19/19 09:15 Heparin SC Not Given TID ERWIN Hydralazine HCl 10 mg 12/16/19 00:34 12/17/19 03:31 Apresoline SLOW IVP 10 mg Q4H PRN Administration SBP > 180 or DBP > 105 Cefepime HCl 1 gm/ Sodium 100 mls @ 200 mls/hr 12/15/19 23:00 12/18/19 23:20 Chloride IVPB 100 mls 1100,2300 ERWIN Administration Vancomycin HCl 1.5 gm/ Device 300 mls @ 200 mls/hr 12/17/19 14:00 12/18/19 13 :25 IVPB 300 mls 1400 ERWIN Administration Insulin Human Lispro 0 units 12/15/19 16:58 12/18/19 17:03 Humalog SC 4 unit .MODERATE SLIDING SC PRN Administration Moderate Correctional Scale Prednisolone Acetate 1 drop 12/17/19 09:00 12/19/19 09:22 Econopred Plus 1% Opth Susp EA EYE 1 drop DAILY ERWIN Administration - Exam General Appearance: awake alert Neck: supple Respiratory: normal chest expansion, no tachypnea Neurological: cranial nerve grossly intact, no focal deficits Hosp A/P (1) Bilateral pneumonia Code(s): J18.9 - PNEUMONIA, UNSPECIFIED ORGANISM Status: Acute (2) Acute respiratory failure with hypoxia Code(s): J96.01 - ACUTE RESPIRATORY FAILURE WITH HYPOXIA Status: Acute (3) Bilateral pleural effusion Code(s): J90 - PLEURAL EFFUSION, NOT ELSEWHERE CLASSIFIED Status: Acute (4) Suspected CHF (congestive heart failure) Code(s): R09.89 - OTH SYMPTOMS AND SIGNS INVOLVING THE CIRC AND RESP SYSTEMS Status: Acute (5) Atrial fibrillation Code(s): I48.91 - UNSPECIFIED ATRIAL FIBRILLATION Status: Acute (6) Osteomyelitis of great toe of right foot Code(s): M86.9 - OSTEOMYELITIS, UNSPECIFIED Status: Acute (7) Peripheral vascular disease Code(s): I73.9 - PERIPHERAL VASCULAR DISEASE, UNSPECIFIED Status: Acute (8) Sepsis Code(s): A41.9 - SEPSIS, UNSPECIFIED ORGANISM Status: Acute - Plan Plan for surgical debridement of the necrotic Rt first toe today. Follow post op cultures. Sepsis and respiratory failure likely due to bilateral pneumonia with parapneumonic effusions. CHF with exacerbation is also in the differential. Continue IV antibiotics and diuresis. Leukocytosis resolved. Echocardiogram revealed that the EF is 55 to 60%. BNP is elevated. Hold Plavix for thoracentesis on Sunday. Since the patient has to be Plavix free for 5 days. Creatinine level is worsening likely due to diuresis. Decreased the dose of IV Lasix yesterday. DC lisinopril. Continue clonidine 0.1 mg orally 3 times daily for uncontrolled blood pressure. His rapid COVID-19 test is negative.
[2019-12-19 14:34] LABS: #Basophils 0.1 thou/uL (0.0-0.2); #Eosinphils 0.1 thou/uL (0.0-0.7); #Monocytes 0.9 thou/uL (0.11-0.59); #Neutrophils 7.3 thou/uL (1.40-6.50); %Basophils 0.7 % (0.0-1.0); %Eosinophils 0.8 % (0.0-10.0); %Lymphocytes 19.1 % (21.0-51.0); %Monocytes 8.5 % (0.0-10.0); %Neutrophils 70.9 % (42.0-75.0); Hemoglobin 8.6 g/dL (14.0-18.0); Mean Corpuscular HGB CONC 31.9 g/dL (32.0-36.0); Mean Corpuscular Hemoglobin 30.1 pg (27.0-31.0); Mean Corpuscular Volume 94.5 fL (78.0-98.0); Mean Platelet Volume 7.4 fL (7.4-10.4); Platelet Count 586 thou/uL (130-400); RBC Distribution Width 12.5 % (11.5-14.5); Red Blood Cell (RBC) Count 2.85 mill/uL (4.70-6.10); White Blood Cell (WBC) Count 10.2 thou/uL (4.8-10.8)
[2019-12-19] MEDS: Cefepime 1 GM in Sodium Chloride 0.9% 100 ML IVPB SCH ×2 (14:49→23:41)
[2019-12-19 15:04] LABS: Anion Gap 14 mmol/L (10-20); BUN (Urea Nitrogen) 23 mg/dL (8.4-25.7); Calc. Creatinine Clearance 81 mL/min (70-130); Carbon Dioxide 19 mmol/L (23-31); Chloride 111 mmol/L (98-107); Estimated GFR-MDRD 60; Glucose 154 mg/dL (80-115); Sodium 140 mmol/L (136-145)
[2019-12-19] MEDS: HYDROcodone/Acetaminophen 5/325 mg Tablet PO PRN (15:27)
[2019-12-19] MEDS ORDERED: Sodium Chloride 0.9% 1,000 ML IV SCH (16:45)
[2019-12-19] MEDS: HumaLOG 300 UNITS/3 ML VIAL SC PRN (17:16)
[2019-12-19 17:28] LABS: Vancomycin, Trough 22.7 ug/mL
[2019-12-19] MEDS: Atorvastatin Calcium 20 MG TAB PO SCH (20:30)
[2019-12-20] MEDS: HYDROcodone/Acetaminophen 5/325 mg Tablet PO PRN ×3 (00:35→20:48)
[2019-12-20] MEDS: cloNIDine 0.1 MG TAB PO SCH ×4 (00:36→20:49)
[2019-12-20 03:56] LABS: Anion Gap 12 mmol/L (10-20); BUN (Urea Nitrogen) 25 mg/dL (8.4-25.7); Calc. Creatinine Clearance 78 mL/min (70-130); Calcium 7.7 mg/dL (7.8-10.44); Carbon Dioxide 22 mmol/L (23-31); Chloride 107 mmol/L (98-107); Estimated GFR-MDRD 58; Glucose 167 mg/dL (80-115); Potassium 3.9 mmol/L (3.5-5.1); Sodium 137 mmol/L (136-145)
[2019-12-20 04:26] LABS: #Basophils 0.1 thou/uL (0.0-0.2); #Eosinphils 0.1 thou/uL (0.0-0.7); #Lymphocytes 1.5 thou/uL (1.20-3.40); #Monocytes 0.7 thou/uL (0.11-0.59); #Neutrophils 7.9 thou/uL (1.40-6.50); %Basophils 0.9 % (0.0-1.0); %Eosinophils 1.3 % (0.0-10.0); %Lymphocytes 14.8 % (21.0-51.0); %Monocytes 6.5 % (0.0-10.0); %Neutrophils 76.5 % (42.0-75.0); Hemoglobin 7.2 g/dL (14.0-18.0); Mean Corpuscular Hemoglobin 28.9 pg (27.0-31.0); Mean Corpuscular Volume 93.2 fL (78.0-98.0); Mean Platelet Volume 7.4 fL (7.4-10.4); Platelet Count 515 thou/uL (130-400); RBC Distribution Width 12.6 % (11.5-14.5); Red Blood Cell (RBC) Count 2.49 mill/uL (4.70-6.10); White Blood Cell (WBC) Count 10.3 thou/uL (4.8-10.8)
[2019-12-20] MEDS: Clopidogrel Bisulfate 75 MG TAB PO SCH (07:26)
[2019-12-20] MEDS: Heparin 5,000 UNITS/ML VIAL SC SCH ×3 (08:12→20:49)
[2019-12-20] MEDS: Aspirin 81 mg Enteric Coated Tablet PO SCH (08:12)
[2019-12-20] MEDS: Amlodipine 10 MG TAB PO SCH (08:12)
[2019-12-20] MEDS: prednisoLONE 1% Ophth Susp 5 ml Bottle EA EYE SCH (08:12)
[2019-12-20] MEDS: Lactinex Tablet PO SCH ×2 (08:12→20:49)
[2019-12-20] MEDS: Furosemide 20 MG/2 ML VIAL SLOW IVP SCH (08:12)
[2019-12-20] MEDS: Alogliptin 6.25 MG TAB PO SCH (08:19)
[2019-12-20] MEDS: Cefepime 1 GM in Sodium Chloride 0.9% 100 ML IVPB SCH ×2 (10:25→22:34)
--- NOTE | 2019-12-20 12:33 | PDOC.HOSPP ---
- Subjective Encounter Date: 12/20/19 Encounter Time: 08:45 Subjective: feels better no pain in his foot is sitting on bed, has wound vac to his foot - Objective Vital Signs & Weight: Vital Signs (12 hours) Temp Pulse Resp BP BP Pulse Ox 12/20/19 08:18 100 12/20/19 07:28 97.5 F L 70 20 145/77 H 100 12/20/19 04:00 97.5 F L 63 18 129/70 99 12/20/19 00:36 150/75 H Weight Admit Weight 253 lb 3.2 oz Weight 272 lb 9 oz I&O: 12/19/19 12/20/19 12/21/19 06:59 06:59 06:59 Intake Total 2150 2060 Output Total 1975 525 Balance 175 1535 Result Diagrams: 12/20/19 03:20 12/20/19 03:20 Additional Labs: Accuchecks 12/20/19 12/20/19 12/19/19 11:20 04:44 20:05 POC Glucose 191 H 195 H 233 H 12/19/19 12/19/19 16:35 14:08 POC Glucose 268 H 176 H Hospitalist ROS - Medication Medications: Active Medications Generic Name Dose Route Start Last Admin Trade Name Freq PRN Reason Stop Dose Admin Hydrocodone Bitart/Acetaminophen 1 tab 12/15/19 16:48 12/20/19 08:18 [place] 5/325 PO 1 tab Q4H PRN Administration Moderate Pain (4-6) Acidophilus 1 tab 12/15/19 21:00 12/20/19 08:12 Floranex PO 1 tab BID ERWIN Administration Alogliptin Benzoate 6.25 mg 12/16/19 09:00 12/20/19 08:19 Alogliptin PO 6.25 mg DAILY ERWIN Administration Amlodipine Besylate 10 mg 12/19/19 09:00 12/20/19 08:12 Norvasc PO 10 mg DAILY ERWIN Administration Aspirin 81 mg 12/17/19 09:00 12/20/19 08:12 Ecotrin PO Not Given DAILY ERWIN Atorvastatin Calcium 20 mg 12/15/19 21:00 12/19/19 20:30 Lipitor PO 20 mg HS ERWIN Administration Clonidine 0.1 mg 12/18/19 21:00 12/20/19 08:11 Catapres PO 0.1 mg TID ERWIN Administration Furosemide 20 mg 12/19/19 09:00 12/20/19 08:12 Lasix SLOW IVP 20 mg DAILY ERWIN Administration Heparin Sodium (Porcine) 5,000 units 12/15/19 21:00 12/20/19 08:12 Heparin SC Not Given TID ERWIN Hydralazine HCl 10 mg 12/16/19 00:34 12/17/19 03:31 Apresoline SLOW IVP 10 mg Q4H PRN Administration SBP > 180 or DBP > 105 Cefepime HCl 1 gm/ Sodium 100 mls @ 200 mls/hr 12/15/19 23:00 12/20/19 10:25 Chloride IVPB 100 mls 1100,2300 ERWIN Administration Insulin Human Lispro 0 units 12/15/19 16:58 12/19/19 17:16 Humalog SC 6 unit .MODERATE SLIDING SC PRN Administration Moderate Correctional Scale Prednisolone Acetate 1 drop 12/17/19 09:00 12/20/19 08:12 Econopred Plus 1% Opth Susp EA EYE 1 drop DAILY ERWIN Administration Tramadol HCl 50 mg 12/19/19 12:20 12/19/19 17:17 Ultram PO 50 mg Q4H PRN Administration Pain 1-5 - Exam General Appearance: awake alert Eye: PERRL, anicteric sclera ENT: no oropharyngeal lesions, moist mucosa Neck: supple, no JVD Heart: RRR, no murmur Respiratory: no wheezes, no rales Gastrointestinal: soft, non-tender, non-distended, normal bowel sounds Extremities: no cyanosis Extremities - other findings: right foot in dressing and wound vac Neurological: cranial nerve grossly intact, no focal deficits Psychiatric: normal affect, A&O x 3 Hosp A/P (1) Osteomyelitis of great toe of right foot Code(s): M86.9 - OSTEOMYELITIS, UNSPECIFIED Status: Acute (2) CHF (NYHA class III, ACC/AHA stage C) Code(s): I50.9 - HEART FAILURE, UNSPECIFIED Status: Suspected (3) Bilateral pleural effusion Code(s): J90 - PLEURAL EFFUSION, NOT ELSEWHERE CLASSIFIED Status: Acute (4) Atrial fibrillation Code(s): I48.91 - UNSPECIFIED ATRIAL FIBRILLATION Status: Chronic Qualifiers: Atrial fibrillation type: paroxysmal Qualified Code(s): I48.0 - Paroxysmal atrial fibrillation (5) Peripheral vascular disease Code(s): I73.9 - PERIPHERAL VASCULAR DISEASE, UNSPECIFIED Status: Chronic (6) Sepsis Code(s): A41.9 - SEPSIS, UNSPECIFIED ORGANISM Status: Acute Qualifiers: Sepsis type: sepsis due to unspecified organism (7) Obesity Code(s): E66.9 - OBESITY, UNSPECIFIED Status: Acute Qualifiers: Obesity classification: adult class 3 (BMI >= 40) Body mass index: BMI 40.0 -44.9 (8) Acute blood loss as cause of postoperative anemia Code(s): D62 - ACUTE POSTHEMORRHAGIC ANEMIA Status: Acute - Plan s/p amp of right gr toe with metatarsal 12/19/2019, in wound vac, had debridement of right heel ulcer as well is on vanc and cefepime covid 19 was -ve on 12/15/2019 continue norvasc, asp, lipitor, clonidine and hold plavix for thoracentesis on sunday by IR likely has diastolic dysfunction, ef is 55% ac bld loss anemia sec to surgery, h/h around 12/24
[2019-12-20] MEDS: HumaLOG 300 UNITS/3 ML VIAL SC PRN ×3 (12:37→22:33)
[2019-12-20] MEDS: Vancomycin HCl 1.25 GM in Sodium Chloride 0.9% 250 ML 250 ML IVPB SCH (13:09)
--- NOTE | 2019-12-20 18:21 | PRG ---
DATE OF SERVICE: 12/20/2019 SUBJECTIVE: Mr. Aguayo had the amputation of the right great toe metatarsal. The wound was left open to heal by secondary intention with a negative pressure dressing in place. He is staying in bed right now. He denies any shortness of breath. No abdominal pain. OBJECTIVE: VITAL SIGNS: His temperature has been normal, BP 140/70, pulse 71, respirations 20, and O2 saturation 100. GENERAL: He appears in no distress. LUNGS: Clear. HEART: S1 and S2. Regular rate. ABDOMEN: Soft and not distended. He is voiding in the urinal. EXTREMITIES: The foot with negative pressure dressing in place. LABORATORY DATA: White cell count 10.3, hemoglobin 7.2, and platelets 515. Creatinine is 1.46. Microbiology, we have Morganella Morgagni with broad susceptibility profile, Proteus mirabilis likewise with a broad susceptibility profile. This is from the foot. Pathology from the foot is pending. ASSESSMENT AND DISCUSSION: 1. Type 2 diabetes. 2. Peripheral vascular disease. 3. Necrotic right distal 1st toe with dry gangrene. 4. Ulceration in the right heel. The patient has had revascularization and questionable viability of the foot and associated with pulmonary edema. Repeat COVID test negative, and either discontinue antimicrobial therapy or may consider transition to oral quinolone plus Flagyl for a few more days. The patient will be at high risk for future complications in view of the still questionable viability of the involved areas. Job ID: [id number]
[2019-12-20] MEDS: Atorvastatin Calcium 20 MG TAB PO SCH (20:49)
[2019-12-21] MEDS: Amlodipine 10 MG TAB PO SCH (08:11)
[2019-12-21] MEDS: Alogliptin 6.25 MG TAB PO SCH (08:11)
[2019-12-21] MEDS: Aspirin 81 mg Enteric Coated Tablet PO SCH (08:12)
[2019-12-21] MEDS: prednisoLONE 1% Ophth Susp 5 ml Bottle EA EYE SCH (08:12)
[2019-12-21] MEDS: Heparin 5,000 UNITS/ML VIAL SC SCH ×3 (08:12→20:37)
[2019-12-21] MEDS: Furosemide 20 MG/2 ML VIAL SLOW IVP SCH (08:12)
[2019-12-21] MEDS: Lactinex Tablet PO SCH ×2 (08:12→20:35)
[2019-12-21] MEDS: cloNIDine 0.1 MG TAB PO SCH ×3 (08:12→20:35)
[2019-12-21] MEDS: Cefepime 1 GM in Sodium Chloride 0.9% 100 ML IVPB SCH ×2 (10:20→22:37)
--- NOTE | 2019-12-21 11:07 | PDOC.HOSPP ---
- Subjective Encounter Date: 12/21/19 Encounter Time: 08:45 Subjective: feels better, no pain has not ambulated yet due to restrictions on weight bearing - Objective Vital Signs & Weight: Vital Signs (12 hours) Temp Pulse Resp BP Pulse Ox 12/21/19 08:12 99 12/21/19 07:58 98.1 F 81 20 145/73 H 99 12/21/19 04:00 98.1 F 83 18 141/68 H 97 12/21/19 00:00 97.9 F 76 18 151/75 H 97 Weight Admit Weight 253 lb 3.2 oz Weight 275 lb I&O: 12/20/19 12/21/19 12/22/19 06:59 06:59 06:59 Intake Total 2060 1150 Output Total 525 800 Balance 1535 350 Result Diagrams: 12/20/19 03:20 12/20/19 03:20 Additional Labs: Accuchecks 12/21/19 12/20/19 12/20/19 05:19 21:02 16:21 POC Glucose 140 H 232 H 218 H 12/20/19 11:20 POC Glucose 191 H Hospitalist ROS - Medication Medications: Active Medications Generic Name Dose Route Start Last Admin Trade Name Freq PRN Reason Stop Dose Admin Hydrocodone Bitart/Acetaminophen 1 tab 12/15/19 16:48 12/20/19 20:48 [place] 5/325 PO 1 tab Q4H PRN Administration Moderate Pain (4-6) Acidophilus 1 tab 12/15/19 21:00 12/21/19 08:12 Floranex PO 1 tab BID ERWIN Administration Alogliptin Benzoate 6.25 mg 12/16/19 09:00 12/21/19 08:11 Alogliptin PO 6.25 mg DAILY ERWIN Administration Amlodipine Besylate 10 mg 12/19/19 09:00 12/21/19 08:11 Norvasc PO 10 mg DAILY ERWIN Administration Aspirin 81 mg 12/17/19 09:00 12/21/19 08:12 Ecotrin PO 81 mg DAILY ERWIN Administration Atorvastatin Calcium 20 mg 12/15/19 21:00 12/20/19 20:49 Lipitor PO 20 mg HS ERWIN Administration Clonidine 0.1 mg 12/18/19 21:00 12/21/19 08:12 Catapres PO 0.1 mg TID ERWIN Administration Furosemide 20 mg 12/19/19 09:00 12/21/19 08:12 Lasix SLOW IVP 20 mg DAILY ERWIN Administration Heparin Sodium (Porcine) 5,000 units 12/15/19 21:00 12/21/19 08:12 Heparin SC Not Given TID ERWIN Hydralazine HCl 10 mg 12/16/19 00:34 12/17/19 03:31 Apresoline SLOW IVP 10 mg Q4H PRN Administration SBP > 180 or DBP > 105 Cefepime HCl 1 gm/ Sodium 100 mls @ 200 mls/hr 12/15/19 23:00 12/21/19 10:20 Chloride IVPB 100 mls 1100,2300 ERWIN Administration Vancomycin HCl 1.25 gm/ Sodium 250 mls @ 166.667 mls/hr 12/20/19 14:00 13:09 Chloride IVPB 250 mls 1400 ERWIN Administration Insulin Human Lispro 0 units 12/15/19 16:58 12/20/19 22:33 Humalog SC 4 unit .MODERATE SLIDING SC PRN Administration Moderate Correctional Scale Prednisolone Acetate 1 drop 12/17/19 09:00 12/21/19 08:12 Econopred Plus 1% Opth Susp EA EYE 1 drop DAILY ERWIN Administration Tramadol HCl 50 mg 12/19/19 12:20 12/19/19 17:17 Ultram PO 50 mg Q4H PRN Administration Pain 1-5 - Exam General Appearance: awake alert Eye: PERRL, anicteric sclera ENT: no oropharyngeal lesions, moist mucosa Neck: supple, no JVD Heart: RRR, no murmur Respiratory: no wheezes, no rales Gastrointestinal: soft, non-tender, non-distended, normal bowel sounds Extremities - other findings: right foot in wound vac and dressing Neurological: cranial nerve grossly intact, no focal deficits Psychiatric: normal affect, A&O x 3 Hosp A/P (1) Osteomyelitis of great toe of right foot Code(s): M86.9 - OSTEOMYELITIS, UNSPECIFIED Status: Acute (2) CHF (NYHA class III, ACC/AHA stage C) Code(s): I50.9 - HEART FAILURE, UNSPECIFIED Status: Suspected (3) Bilateral pleural effusion Code(s): J90 - PLEURAL EFFUSION, NOT ELSEWHERE CLASSIFIED Status: Acute (4) Atrial fibrillation Code(s): I48.91 - UNSPECIFIED ATRIAL FIBRILLATION Status: Chronic Qualifiers: Atrial fibrillation type: paroxysmal Qualified Code(s): I48.0 - Paroxysmal atrial fibrillation (5) Peripheral vascular disease Code(s): I73.9 - PERIPHERAL VASCULAR DISEASE, UNSPECIFIED Status: Chronic (6) Sepsis Code(s): A41.9 - SEPSIS, UNSPECIFIED ORGANISM Status: Acute Qualifiers: Sepsis type: sepsis due to unspecified organism (7) Obesity Code(s): E66.9 - OBESITY, UNSPECIFIED Status: Chronic Qualifiers: Obesity classification: adult class 3 (BMI >= 40) Body mass index: BMI 40.0 -44.9 (8) Acute blood loss as cause of postoperative anemia Code(s): D62 - ACUTE POSTHEMORRHAGIC ANEMIA Status: Acute - Plan s/p amp of right gr toe with metatarsal 12/19/2019, in wound vac, had debridement of right heel ulcer as well is on vanc and cefepime, may switch to cipro and flagyl on dc x 1 week per ID advice. covid 19 was -ve on 12/15/2019 continue norvasc, asp, lipitor, clonidine and hold plavix for thoracentesis on sunday by IR likely has diastolic dysfunction, ef is 55% ac bld loss anemia sec to surgery, h/h around 12/24, oral iron will need wound care and wound vac for dc plan (await thoracentesis fluid analysis ?exudate) to mobilize and exercise as tolerated, PT eval
[2019-12-21] MEDS: HumaLOG 300 UNITS/3 ML VIAL SC PRN ×3 (12:44→20:38)
[2019-12-21] MEDS: Vancomycin HCl 1.25 GM in Sodium Chloride 0.9% 250 ML 250 ML IVPB SCH (13:31)
[2019-12-21] MEDS: Furosemide 40 MG TAB PO SCH (13:31)
[2019-12-21] MEDS: Ferrous Sulfate 325 MG TAB PO SCH (16:40)
[2019-12-21] MEDS: Atorvastatin Calcium 20 MG TAB PO SCH (20:36)
[2019-12-22 04:57] LABS: #Basophils 0.1 thou/uL (0.0-0.2); #Eosinphils 0.1 thou/uL (0.0-0.7); #Lymphocytes 2.1 thou/uL (1.20-3.40); #Monocytes 0.7 thou/uL (0.11-0.59); #Neutrophils 6.8 thou/uL (1.40-6.50); %Basophils 0.8 % (0.0-1.0); %Eosinophils 0.8 % (0.0-10.0); %Lymphocytes 21.1 % (21.0-51.0); %Monocytes 7.1 % (0.0-10.0); %Neutrophils 70.2 % (42.0-75.0); Hemoglobin 7.8 g/dL (14.0-18.0); Mean Corpuscular HGB CONC 31.3 g/dL (32.0-36.0); Mean Corpuscular Volume 92.9 fL (78.0-98.0); Mean Platelet Volume 7.8 fL (7.4-10.4); Platelet Count 517 thou/uL (130-400); White Blood Cell (WBC) Count 9.7 thou/uL (4.8-10.8)
[2019-12-22 05:49] LABS: Anion Gap 16 mmol/L (10-20); BUN (Urea Nitrogen) 22 mg/dL (8.4-25.7); Calc. Creatinine Clearance 90 mL/min (70-130); Calcium 8.3 mg/dL (7.8-10.44); Carbon Dioxide 19 mmol/L (23-31); Chloride 110 mmol/L (98-107); Estimated GFR-MDRD 61; Glucose 183 mg/dL (80-115); Potassium 3.8 mmol/L (3.5-5.1); Sodium 141 mmol/L (136-145)
[2019-12-22] MEDS: HumaLOG 300 UNITS/3 ML VIAL SC PRN ×4 (06:48→21:39)
[2019-12-22] MEDS: Lactinex Tablet PO SCH ×2 (08:01→19:47)
[2019-12-22] MEDS: Furosemide 40 MG TAB PO SCH ×2 (08:01→14:50)
[2019-12-22] MEDS: Amlodipine 10 MG TAB PO SCH (08:01)
[2019-12-22] MEDS: cloNIDine 0.1 MG TAB PO SCH ×3 (08:01→19:46)
[2019-12-22] MEDS: Alogliptin 6.25 MG TAB PO SCH (08:02)
[2019-12-22] MEDS: prednisoLONE 1% Ophth Susp 5 ml Bottle EA EYE SCH (08:02)
[2019-12-22] MEDS: Heparin 5,000 UNITS/ML VIAL SC SCH ×3 (08:02→21:36)
[2019-12-22] MEDS: Ferrous Sulfate 325 MG TAB PO SCH ×2 (08:02→17:54)
[2019-12-22] MEDS ORDERED: Sodium Bicarbonate 2.5 MEQ/5 ML VIAL ONE (08:14)
[2019-12-22] MEDS ORDERED: Lidocaine 1% PF 5 ML VIAL ONE (08:14)
--- NOTE | 2019-12-22 09:31 | PDOC.HOSPP ---
- Subjective Encounter Date: 12/22/19 Encounter Time: 11:00 Subjective: Patient without complaints. States he thinks he will do fine at home and doesn' t want to go to rehab. Has wound vac already set up at home. - Objective Vital Signs & Weight: Vital Signs (12 hours) Temp Pulse Resp BP BP BP Pulse Ox 12/22/19 08:01 79 154/78 H 12/22/19 08:00 97.5 F L 79 20 154/78 H 98 12/22/19 04:49 97.6 F 79 18 171/77 H 98 12/22/19 00:00 97.5 F L 87 18 153/75 H 96 Weight Admit Weight 253 lb 3.2 oz Weight 278 lb 6.4 oz I&O: 12/21/19 12/22/19 12/23/19 06:59 06:59 06:59 Intake Total 1150 1150 500 Output Total 800 800 Balance 350 1150 -300 Result Diagrams: 12/22/19 04:30 12/22/19 04:30 Additional Labs: Accuchecks 12/22/19 12/21/19 12/21/19 05:20 20:32 16:33 POC Glucose 200 H 188 H 167 H 12/21/19 12:14 POC Glucose 177 H Hospitalist ROS - Review of Systems Constitutional: denies: fever, chills Respiratory: denies: cough, shortness of breath Cardiovascular: denies: chest pain, palpitations Gastrointestinal: denies: nausea, vomiting, abdominal pain - Medication Medications: Active Medications Generic Name Dose Route Start Last Admin Trade Name Freq PRN Reason Stop Dose Admin Hydrocodone Bitart/Acetaminophen 1 tab 12/15/19 16:48 12/20/19 20:48 [place] 5/325 PO 1 tab Q4H PRN Administration Moderate Pain (4-6) Acidophilus 1 tab 12/15/19 21:00 12/22/19 08:01 Floranex PO 1 tab BID ERWIN Administration Alogliptin Benzoate 6.25 mg 12/16/19 09:00 12/22/19 08:02 Alogliptin PO 6.25 mg DAILY ERWIN Administration Amlodipine Besylate 10 mg 12/19/19 09:00 12/22/19 08:01 Norvasc PO 10 mg DAILY ERWIN Administration Aspirin 81 mg 12/17/19 09:00 12/21/19 08:12 Ecotrin PO 81 mg DAILY ERWIN Administration Atorvastatin Calcium 20 mg 12/15/19 21:00 12/21/19 20:36 Lipitor PO 20 mg HS ERWIN Administration Clonidine 0.1 mg 12/18/19 21:00 12/22/19 08:01 Catapres PO 0.1 mg TID ERWIN Administration Ferrous Sulfate 325 mg 12/21/19 17:00 12/22/19 08:02 Feosol PO 325 mg BID-WM ERWIN Administration Furosemide 40 mg 12/21/19 14:00 12/22/19 08:01 Lasix PO 40 mg 0900,1400 ERWIN Administration Heparin Sodium (Porcine) 5,000 units 12/15/19 21:00 12/22/19 08:02 Heparin SC Not Given TID [facility] Hydralazine HCl 10 mg 12/16/19 00:34 12/17/19 03:31 Apresoline SLOW IVP 10 mg Q4H PRN Administration SBP > 180 or DBP > 105 Cefepime HCl 1 gm/ Sodium 100 mls @ 200 mls/hr 12/15/19 23:00 12/21/19 22:37 Chloride IVPB 100 mls 1100,2300 ERWIN Administration Vancomycin HCl 1.25 gm/ Sodium 250 mls @ 166.667 mls/hr 12/20/19 14:00 13:31 Chloride IVPB 250 mls 1400 ERWIN Administration Insulin Human Lispro 0 units 12/15/19 16:58 12/22/19 06:48 Humalog SC 2 unit .MODERATE SLIDING SC PRN Administration Moderate Correctional Scale Prednisolone Acetate 1 drop 12/17/19 09:00 12/22/19 08:02 Econopred Plus 1% Opth Susp EA EYE 1 drop DAILY ERWIN Administration Tramadol HCl 50 mg 12/19/19 12:20 12/19/19 17:17 Ultram PO 50 mg Q4H PRN Administration Pain 1-5 - Exam General Appearance: NAD, awake alert ENT: moist mucosa Heart: RRR, no murmur, no gallops, no rubs Respiratory: CTAB, no wheezes, no rales, no ronchi Gastrointestinal: soft, non-tender, non-distended, normal bowel sounds Extremities - other findings: foot with dressing in place c/d/i and wound vac in place Psychiatric: normal affect, normal behavior, A&O x 3 Hosp A/P (1) Osteomyelitis of great toe of right foot Code(s): M86.9 - OSTEOMYELITIS, UNSPECIFIED Status: Acute (2) CHF (NYHA class III, ACC/AHA stage C) Code(s): I50.9 - HEART FAILURE, UNSPECIFIED Status: Acute Plan: Relatively normal ECHO with intact EF, likely diastolic in nature (3) Bilateral pleural effusion Code(s): J90 - PLEURAL EFFUSION, NOT ELSEWHERE CLASSIFIED Status: Acute Plan: Suspect due to CHF, thoracentesis today with very low protein level, transudative consistent with CHF, no evidence infection (4) Atrial fibrillation Code(s): I48.91 - UNSPECIFIED ATRIAL FIBRILLATION Status: Chronic Qualifiers: Atrial fibrillation type: paroxysmal Qualified Code(s): I48.0 - Paroxysmal atrial fibrillation (5) Acute blood loss as cause of postoperative anemia Code(s): D62 - ACUTE POSTHEMORRHAGIC ANEMIA Status: Acute (6) Obesity Code(s): E66.9 - OBESITY, UNSPECIFIED Status: Chronic Qualifiers: Obesity classification: adult class 3 (BMI >= 40) Body mass index: BMI 40.0 -44.9 (7) Sepsis Code(s): A41.9 - SEPSIS, UNSPECIFIED ORGANISM Status: Acute Qualifiers: Sepsis type: sepsis due to unspecified organism (8) Peripheral vascular disease Code(s): I73.9 - PERIPHERAL VASCULAR DISEASE, UNSPECIFIED Status: Chronic (9) ARF (acute renal failure) Status: Acute - Plan s/p amp of right gr toe with metatarsal 12/19/2019, in wound vac, had debridement of right heel ulcer as well is on vanc and cefepime, may switch to cipro and flagyl on dc x 1 week per ID advice. covid 19 was -ve on 12/15/2019 continue norvasc, asp, lipitor, clonidine and hold plavix for thoracentesis on sunday by IR likely has diastolic dysfunction, ef is 55% ac bld loss anemia sec to surgery, h/h around 12/24, oral iron, stable creatinine up a bit during admission, stable will need wound care and wound vac for dc plan, already has at home per case management to mobilize and exercise as tolerated, PT got him moving 40 feet yesterday. If does well today can go home
--- NOTE | 2019-12-22 10:17 | RAD ---
RADIOGRAPH CHEST 2 VIEW: (Inspiration and expiration) DATE: 12/22/2019 TIME: 10:07 AM HISTORY: 69-year-old male with pleural effusion, status post right thoracentesis COMPARISON: 12/19/2019 FINDINGS: 2 frontal views, one in inspiration and the other in expiration. The previously demonstrated right pleural effusion has decreased in volume. The associated right lowe r lobe atelectasis has significantly improved. Left-sided PICC remains. No pulmonary edema. Contralateral left pleural effusion with left lower lobe atelectasis remains. No pneumothorax is iden tified. IMPRESSION: 1) interval decrease in volume of right pleural effusion (now small) after right thoracentesis. 2) no pneumothorax. 3) improved aeration of right lower lobe. 4) left pleural effusion and left lower lobe atelectasis have worsened since 12/19/2019
[2019-12-22] MEDS: Cefepime 1 GM in Sodium Chloride 0.9% 100 ML IVPB SCH (10:53)
[2019-12-22] MEDS: Aspirin 81 mg Enteric Coated Tablet PO SCH (10:54)
--- NOTE | 2019-12-22 11:14 | ULT ---
ULTRASOUND-GUIDED THORACENTESIS DIAGNOSTIC AND THERAPEUTIC: DATE: 12/22/2019 HISTORY: 69-year-old male with bilateral pleural effusions and dyspnea TECHNIQUE: Signed informed consent obtained. Site selected for puncture: Right posterior chest. Overlying skin prepared and draped in usual sterile fashion. 25-gauge needle used to apply buffered lidocaine superficially and deeply. 5 [place] Yueh catheter with stylette advanced into the pocket of pleural fluid. After drainage, the Yueh catheter was removed. Patient tolerated the procedure well. No obvious intermediate complications. Awaiting routine post pleurocentesis inspiration and expiration chest radiograph. FINDINGS: Volume of pleural fluid prior to procedure:moderate. Volume of residual pleural fluid after drainage:small. Volume of pleural fluid drained:1350 mL Appearance of pleural fluid:Clear IMPRESSION: Successfuldiagnostic and therapeutic paracentesis, with drainage of 1350 L of pleural fluid.
--- NOTE | 2019-12-22 12:30 | PRG ---
DATE OF SERVICE: 12/22/2019 Tony Aguayo is doing well today. His vital signs are stable. He is afebrile. Wound Care has changed the dressing. The wound is granulating and healing. There is no cellulitis. The patient is doing well from a surgical standpoint. We would change to oral antibiotics. The patient is ready for discharge whenever outpatient wound care is arranged from a surgical standpoint. I will see him as needed in this hospitalization. I will see him as an outpatient. Job ID: [id number]
[2019-12-22 13:01] LABS: Fluid, Protein 1.4 g/dL (Not Available)
[2019-12-22 14:00] LABS: RBC Count-Automated (BF) 0 /cu.mm; WBC/Nucleated-Auto (BF) 469 uL
[2019-12-22 14:05] LABS: BF Color Yellow; Body Fluid Source Thoracentesis Fluid; Clarity Hazy (Clear); Tube # EDTA
[2019-12-22] MEDS: Vancomycin HCl 1.25 GM in Sodium Chloride 0.9% 250 ML 250 ML IVPB SCH (14:22)
[2019-12-22 14:36] LABS: BF Segmented Neutrophils 10 %; Cell Count Non Hematic 42 %; Lymphocytes 48 %
[2019-12-22] MEDS: metroNIDAZOLE 500 MG TAB PO SCH ×2 (14:50→21:35)
[2019-12-22] MEDS: Ciprofloxacin 500 MG TAB PO SCH (19:46)
[2019-12-22] MEDS: Atorvastatin Calcium 20 MG TAB PO SCH (19:47)
[2019-12-23] MEDS: Ciprofloxacin 500 MG TAB PO SCH (05:46)
[2019-12-23] MEDS: Lactinex Tablet PO SCH (08:10)
[2019-12-23] MEDS: Amlodipine 10 MG TAB PO SCH (08:10)
[2019-12-23] MEDS: Aspirin 81 mg Enteric Coated Tablet PO SCH (08:10)
[2019-12-23] MEDS: metroNIDAZOLE 500 MG TAB PO SCH (08:10)
[2019-12-23] MEDS: Furosemide 40 MG TAB PO SCH (08:11)
[2019-12-23] MEDS: Ferrous Sulfate 325 MG TAB PO SCH (08:11)
[2019-12-23] MEDS: Alogliptin 6.25 MG TAB PO SCH (08:11)
[2019-12-23] MEDS: cloNIDine 0.1 MG TAB PO SCH (08:12)
[2019-12-23] MEDS: Heparin 5,000 UNITS/ML VIAL SC SCH (08:12)
[2019-12-23] MEDS: HumaLOG 300 UNITS/3 ML VIAL SC PRN (11:06)
[2019-12-23] MEDS: prednisoLONE 1% Ophth Susp 5 ml Bottle EA EYE SCH (11:06)
--- NOTE | 2019-12-23 12:08 | PDOC.HOSPP ---
- Subjective Encounter Date: 12/23/19 Encounter Time: 12:00 Subjective: Patient was feeling a bit SOB this AM when woke up, but then passed gas and feeling well again. Ambulated great with PT yesterday. Patient eager to go home. - Objective Vital Signs & Weight: Vital Signs (12 hours) Temp Pulse Resp BP BP BP Pulse Ox 12/23/19 09:40 157/70 H 12/23/19 08:10 83 183/87 H 12/23/19 07:49 98.4 F 83 14 183/87 H 99 12/23/19 04:00 98.1 F 85 20 175/71 H 97 Weight Admit Weight 253 lb 3.2 oz Weight 275 lb 3 oz I&O: 12/22/19 12/23/19 12/24/19 06:59 06:59 06:59 Intake Total 1150 1250 Output Total 800 Balance 1150 450 Result Diagrams: 12/22/19 04:30 12/22/19 04:30 Additional Labs: Accuchecks 12/23/19 12/23/19 12/22/19 10:41 05:10 19:36 POC Glucose 214 H 177 H 239 H 12/22/19 12/22/19 17:44 12:06 POC Glucose 211 H 180 H Hospitalist ROS - Review of Systems Constitutional: denies: fever, chills Cardiovascular: denies: chest pain, palpitations Gastrointestinal: denies: nausea, vomiting, abdominal pain Neurological: denies: weakness - Medication Medications: Active Medications Generic Name Dose Route Start Last Admin Trade Name Freq PRN Reason Stop Dose Admin Hydrocodone Bitart/Acetaminophen 1 tab 12/15/19 16:48 12/20/19 20:48 [place] 5/325 PO 1 tab Q4H PRN Administration Moderate Pain (4-6) Acidophilus 1 tab 12/15/19 21:00 12/23/19 08:10 Floranex PO 1 tab BID ERWIN Administration Alogliptin Benzoate 6.25 mg 12/16/19 09:00 12/23/19 08:11 Alogliptin PO 6.25 mg DAILY ERWIN Administration Amlodipine Besylate 10 mg 12/19/19 09:00 12/23/19 08:10 Norvasc PO 10 mg DAILY ERWIN Administration Aspirin 81 mg 12/17/19 09:00 12/23/19 08:10 Ecotrin PO 81 mg DAILY ERWIN Administration Atorvastatin Calcium 20 mg 12/15/19 21:00 12/22/19 19:47 Lipitor PO 20 mg HS ERWIN Administration Ciprofloxacin 500 mg 12/22/19 20:00 12/23/19 05:46 Cipro PO 500 mg 0600,2000 ERWIN Administration Clonidine 0.1 mg 12/18/19 21:00 12/23/19 08:12 Catapres PO 0.1 mg TID ERWIN Administration Ferrous Sulfate 325 mg 12/21/19 17:00 12/23/19 08:11 Feosol PO 325 mg BID-WM ERWIN Administration Furosemide 40 mg 12/21/19 14:00 12/23/19 08:11 Lasix PO 40 mg 0900,1400 ERWIN Administration Heparin Sodium (Porcine) 5,000 units 12/15/19 21:00 12/23/19 08:12 Heparin SC 5,000 units TID ERWIN Administration Hydralazine HCl 10 mg 12/16/19 00:34 12/17/19 03:31 Apresoline SLOW IVP 10 mg Q4H PRN Administration SBP > 180 or DBP > 105 Insulin Human Lispro 0 units 12/15/19 16:58 12/23/19 11:06 Humalog SC 4 unit .MODERATE SLIDING SC PRN Administration Moderate Correctional Scale Metronidazole 500 mg 12/22/19 15:00 12/23/19 08:10 Flagyl PO 500 mg TID ERWIN Administration Prednisolone Acetate 1 drop 12/17/19 09:00 12/23/19 11:06 Econopred Plus 1% Opth Susp EA EYE 1 drop DAILY ERWIN Administration Tramadol HCl 50 mg 12/19/19 12:20 12/19/19 17:17 Ultram PO 50 mg Q4H PRN Administration Pain 1-5 - Exam General Appearance: NAD, awake alert ENT: moist mucosa Heart: RRR, no murmur, no gallops, no rubs Respiratory: CTAB, no wheezes, no rales, no ronchi Gastrointestinal: soft, non-tender, non-distended, normal bowel sounds Extremities - other findings: foot with dressing and wound vac c/d/i Psychiatric: normal affect, normal behavior, A&O x 3 Hosp A/P (1) Osteomyelitis of great toe of right foot Code(s): M86.9 - OSTEOMYELITIS, UNSPECIFIED Status: Acute (2) CHF (NYHA class III, ACC/AHA stage C) Code(s): I50.9 - HEART FAILURE, UNSPECIFIED Status: Acute (3) Bilateral pleural effusion Code(s): J90 - PLEURAL EFFUSION, NOT ELSEWHERE CLASSIFIED Status: Acute (4) Atrial fibrillation Code(s): I48.91 - UNSPECIFIED ATRIAL FIBRILLATION Status: Chronic Qualifiers: Atrial fibrillation type: paroxysmal Qualified Code(s): I48.0 - Paroxysmal atrial fibrillation (5) Acute blood loss as cause of postoperative anemia Code(s): D62 - ACUTE POSTHEMORRHAGIC ANEMIA Status: Acute (6) Obesity Code(s): E66.9 - OBESITY, UNSPECIFIED Status: Chronic Qualifiers: Obesity classification: adult class 3 (BMI >= 40) Body mass index: BMI 40.0 -44.9 (7) Sepsis Code(s): A41.9 - SEPSIS, UNSPECIFIED ORGANISM Status: Acute Qualifiers: Sepsis type: sepsis due to unspecified organism (8) Peripheral vascular disease Code(s): I73.9 - PERIPHERAL VASCULAR DISEASE, UNSPECIFIED Status: Chronic (9) ARF (acute renal failure) Status: Acute - Plan s/p amp of right gr toe with metatarsal 12/19/2019, in wound vac, had debridement of right heel ulcer as well is on vanc and cefepime, may switch to cipro and flagyl on dc x 1 week per ID advice. covid 19 was -ve on 12/15/2019 continue norvasc, asp, lipitor, clonidine and held plavix for thoracentesis on sunday by IR- no evidence infection likely has diastolic dysfunction, ef is 55% ac bld loss anemia sec to surgery, h/h around 12/24, oral iron, stable creatinine up a bit during admission, stable will need wound care and wound vac for dc plan, already has at home per case management Patient did great with PT yesterday, ambulated 100 feet. Can d/c home today. Continue holding Metformin and ARB due to ARF, PCP can reasses restarting. Patient hasn't needed much insulin with the diabetic diet and new oral meds. Will have him decrease to 10units BID when he gets home and increase as needed.
[2019-12-23 12:17] VITALS: BMI 40.6
[2019-12-23 12:25] VITALS: BP 147/80; TEMP 97.9
--- NOTE | 2019-12-24 07:52 | DIS ---
DATE OF ADMISSION: 12/15/2019 DATE OF DISCHARGE: 12/23/2019 PRIMARY CARE PHYSICIAN: Dr. Nesbitt. REASON FOR ADMISSION: Shortness of breath. DIAGNOSES AT DISCHARGE: 1. Osteomyelitis of the great toe of the right foot, status post resection. 2. Acute diastolic congestive heart failure. 3. Bilateral pleural effusion secondary to above. 4. Chronic paroxysmal atrial fibrillation. 5. Acute blood loss postoperative anemia. 6. Obesity. 7. Sepsis resolved. 8. Peripheral vascular disease. 9. Acute renal failure, improved. PROCEDURES: 1. CT scan of the chest with and without contrast showing no evidence of pulmonary embolism with moderate bilateral pleural effusions with compressive atelectasis and patchy infiltrates seen throughout both lungs, nonspecific viral versus bacterial. 2. Amputation of right great toe and metatarsals along with debridement of skin, subcutaneous tissues, muscle, tendon, and calcaneus of the right plantar foot for the stage IV decubitus wound. 3. Ultrasound guided thoracentesis of the right chest with 1350 mL of clear fluid removed. 4. Echocardiogram showing ejection fraction of 55% to 60%, mild concentric left ventricular hypertrophy and structurally normal valves. CONSULTATIONS: 1. General Surgery, Dr. Mc. 2. Infectious Disease, Dr. Simms. SUMMARY OF HOSPITAL COURSE: This is a 69-year-old male with a history of hypertension, diabetes, hyperlipidemia, atrial fibrillation, and peripheral vascular disease, who has had partial amputation of his right great toe due to osteomyelitis in the past and was discharged with a wound VAC and oral antibiotics per Infectious Disease. He had a followup from Home Health on the day of admission, he was noted to be short of breath and was instructed to go to the ER. In the ER, he was found to have bilateral infiltrates and effusions. He had a COVID test that came back negative. He was put on antibiotics. He also had some acute renal failure. He was noted to be volume overloaded, was put on Lasix with mild improvement in his renal failure and resolution of his shortness of breath. He did have surgery done by Dr. Mc as above and Dr. Simms did recommend antibiotics. He did well during his hospitalization, it was determined he likely had no infection of his lungs, it was all congestive failure changes. The patient did have wound VAC to his foot postoperatively and was doing well with that, was ambulating with PT and desired to go home. He was able to ambulate 100 feet with PT the day before discharge and has a wound VAC and home PT/OT already set up. I did discuss with Dr. Simms and he recommended sending home with a few more days of oral Cipro and metronidazole. The patient did have his metformin, his insulin, and his ARB held during his hospitalization due to his acute renal failure and his blood sugars not being too terribly uncontrolled. He was put on alogliptin and had decent control in his blood sugars. He is being discharged with that holding metformin and having his home insulins decreased to just 10 units twice a day as opposed to the 35 he was on. He can bring this up when he gets home with his normal diet at home. He has blood sugar starts spiking higher. DISCHARGE MANAGEMENT: Discharged home with [facility]. ACTIVITY: As tolerated. DIET: Diabetic diet. THERAPY: Occupational and physical therapy and wound VAC with outpatient wound care. FOLLOWUP: Follow up with Dr. Mc in 2 to 3 weeks, with Dr. Rodriguez in 7 days. DISCHARGE MEDICATIONS: 1. Alogliptin 6.25 mg daily, 30 tablets dispensed. 2. Amlodipine 10 mg daily, 30 tablets dispensed. 3. Ciprofloxacin 500 mg twice a day for another five days. 4. Metronidazole 500 mg 3 times a day for another five days. 5. Clonidine 0.1 mg 3 times a day, 90 tablets dispensed. 6. Ferrous sulfate 325 mg twice a day, 60 tablets dispensed. 7. Furosemide 40 mg twice a day, 60 tablets dispensed. 8. Insulin Novolin 70/30 of 10 units subcu twice a day. 9. Aspirin 81 mg daily. 10. Atorvastatin 40 mg at night. 11. Lactobacillus twice a day. 12. Prednisolone ophthalmic drops one drop daily. 13. Clopidogrel 75 mg daily. 14. Multivitamin daily. 15. Fish oil 1000 mg daily. Arranging the details of this discharge took 35 minutes. Job ID: [id number]
== END 2019-12-23 15:53 | disposition home health service (06) | DRG 853 ==
LOC: ERS 15:20 → ERHOLD 16:55 → 2NO 12-16 → T4-B 12-17 17:45
PROVIDERS: ADMIT Internal Medicine; ATTEND Internal Medicine
PROC: 0Y6M0Z9 Detachment at Right Foot, Partial 1st Ray, Open Approach (ICD-10-PCS; principal; 2019-12-19)
PROC: 0QBL0ZZ Excision of Right Tarsal, Open Approach (ICD-10-PCS; 2019-12-19)
PROC: 0W993ZZ Drainage of Right Pleural Cavity, Percutaneous Approach (ICD-10-PCS; 2019-12-22)
DX: A41.9 Sepsis, unspecified organism (principal); L89.614 Pressure ulcer of right heel, stage 4; J96.01 Acute respiratory failure with hypoxia; J18.9 Pneumonia, unspecified organism; I50.33 Acute on chronic diastolic (congestive) heart failure; D62 Acute posthemorrhagic anemia; I48.20 Chronic atrial fibrillation, unspecified; Z68.41 Body mass index [BMI] 40.0-44.9, adult; J90 Pleural effusion, not elsewhere classified; E11.52 Type 2 diabetes mellitus with diabetic peripheral angiopathy with gangrene; I96 Gangrene, not elsewhere classified; M86.171 Other acute osteomyelitis, right ankle and foot; Z20.828 Contact with and (suspected) exposure to other viral communicable diseases; E66.9 Obesity, unspecified; I11.0 Hypertensive heart disease with heart failure; E78.5 Hyperlipidemia, unspecified; Z89.411 Acquired absence of right great toe; Z79.02 Long term (current) use of antithrombotics/antiplatelets; Z79.82 Long term (current) use of aspirin; Z79.52 Long term (current) use of systemic steroids; Z79.899 Other long term (current) drug therapy; Z79.4 Long term (current) use of insulin; Z87.891 Personal history of nicotine dependence
CPT/HCPCS: 36415; 36416; 71045; 71275; 76942; 80048; 80202; 83615; 83880; 84145; 84155; 84157; 85025; 85060; 85610; 85652; 86140; 88305; 88311; 89051; 93306; J0360; J0692; J1644; J1940; J2405; J2704; J3010; J3370; J3490; J7030; J7050; Q9967; U0002

== ENCOUNTER → 2020-02-11 | Day surgery (SDC) | payer MEDICARE ==
[~2020-02-11] MED LIST changes: +Heparin 1,000 UNITS/ML VIAL ONE; -Iopamidol 370 76% 100 ML VIAL ONE
--- NOTE | 2020-02-11 11:28 | SPC ---
SPC CVP LINE PICC INITIAL >5: 02/11/2020 11:24 AM INDICATION: Need for long-term IV antibiotics PROCEDURE: Peripherally placed 49 cm single lumen power PICC line. PICC Line Placement: The left arm was prepped and draped in sterile fashion. One percent lidocaine was used for local anesthetic. Under fluoroscopic and ultrasound guidance, the left brachial vein was patent and accessed with a lesvia ropuncture needle. A guide wire was then advanced into the left brachial vein. A vascular sheath was then advanced over a guide wire, and a single lumen PICC line was trimmed. The PICC line was then advanced into the central venous system. A final placement film demonstrates the tip of the catheter terminated in the caval-atrial junction. After confirmation of the catheter position, the catheter was sutured in place at the skin entry site . There was no immediate complication. Total fluoroscopic time 0.6 minutes. Total exposure 7263 mgray/sq cm IMPRESSION: Peripheral placement of a single lumen power PICC line into the left brachial vein using fluoroscopic and ultrasound guidance.
== END ==
LOC: SPEC 09:20
PROVIDERS: ATTEND Internal Medicine Infectious Disease
PROC: 02HV33Z Insertion of Infusion Device into Superior Vena Cava, Percutaneous Approach (ICD-10-PCS; principal; 2020-02-11)
PROC: B518ZZA Fluoroscopy of Superior Vena Cava, Guidance (ICD-10-PCS; 2020-02-11)
DX: M86.9 Osteomyelitis, unspecified (principal); Z79.2 Long term (current) use of antibiotics
CPT/HCPCS: 36569; J1644

== ENCOUNTER 2020-09-29 09:35 | Outpatient (CLI) | payer MEDICARE ==
[2020-09-29] MEDS ORDERED: Magnevist 469MG/ML 20 ML VIAL ONE (11:58)
== END 2020-09-29 09:36 | disposition home or self-care (01) ==
LOC: BICMRI 09:35
PROVIDERS: ATTEND Internal Medicine Infectious Disease
DX: M86.671 Other chronic osteomyelitis, right ankle and foot (principal); S93.331A Other subluxation of right foot, initial encounter; M86.9 Osteomyelitis, unspecified; M19.071 Primary osteoarthritis, right ankle and foot; T87.9 Unspecified complications of amputation stump; Z98.890 Other specified postprocedural states
CPT/HCPCS: 82565; A9579

== ENCOUNTER 2020-11-01 17:12 | Inpatient (IN) | payer MEDICARE ==
[2020-11-01] MEDS ORDERED: Ondansetron PF 4 MG/2 ML Vial IVP PRN (19:37)
[2020-11-01] MEDS ORDERED: hydrALAZINE 20 MG/ML VIAL SLOW IVP PRN (19:44)
[2020-11-01] MEDS ORDERED: Dextrose 5% in Water 1,000 ML IV PRN (19:53)
[2020-11-01] MEDS: hydrALAZINE 25 MG TAB PO SCH (20:30)
[2020-11-01] MEDS: Atorvastatin Calcium 40 MG TAB PO SCH (20:30)
[2020-11-02] MEDS: Furosemide 40 MG/4 ML VIAL SLOW IVP SCH ×4 (00:01→23:52)
[2020-11-02] MEDS: Linezolid 600 MG in Premix Bag 1 BAG IVPB SCH ×2 (02:44→14:14)
[2020-11-02 03:44] LABS: #Eosinphils 0.2 thou/uL (0.0-0.7); #Monocytes 1.1 thou/uL (0.11-0.59); #Neutrophils 8.2 thou/uL (1.40-6.50); %Basophils 0.4 % (0.0-1.0); %Eosinophils 1.4 % (0.0-10.0); %Lymphocytes 9.6 % (21.0-51.0); %Monocytes 10.5 % (0.0-10.0); Hemoglobin 6.9 g/dL (14.0-18.0); Mean Corpuscular HGB CONC 34.4 g/dL (32.0-36.0); Mean Corpuscular Hemoglobin 29.4 pg (27.0-31.0); Mean Corpuscular Volume 85.3 fL (78.0-98.0); Mean Platelet Volume 7.6 fL (7.4-10.4); Platelet Count 259 thou/uL (130-400); RBC Distribution Width 16.6 % (11.5-14.5); Red Blood Cell (RBC) Count 2.34 mill/uL (4.70-6.10); White Blood Cell (WBC) Count 10.5 thou/uL (4.8-10.8)
[2020-11-02 04:08] LABS: Anion Gap 14 mmol/L (10-20); BUN (Urea Nitrogen) 76 mg/dL (8.4-25.7); Calc. Creatinine Clearance 41 mL/min (70-130); Calcium 8.2 mg/dL (7.8-10.44); Carbon Dioxide 29 mmol/L (23-31); Chloride 97 mmol/L (98-107); Glucose 81 mg/dL (80-115); Potassium 4.4 mmol/L (3.5-5.1); Sodium 136 mmol/L (136-145)
[2020-11-02] MEDS ORDERED: Morphine 2 MG/ML VIAL SLOW IVP SCH (04:45)
[2020-11-02] MEDS ORDERED: Ferrous Sulfate 325 MG TAB PO SCH (08:00)
[2020-11-02] MEDS ORDERED: Metolazone 5 MG TAB PO SCH (08:30)
[2020-11-02] MEDS: Famotidine 20 MG TAB PO SCH (10:12)
[2020-11-02] MEDS: Saccharomyces boulardii 250 MG CAP PO SCH (10:12)
[2020-11-02] MEDS: hydrALAZINE 25 MG TAB PO SCH ×3 (10:12→21:51)
[2020-11-02] MEDS: Aspirin 81 mg Enteric Coated Tablet PO SCH (10:13)
[2020-11-02] MEDS: NIFEdipine XL 90 MG TAB PO SCH (10:13)
[2020-11-02] MEDS: Fish Oil 1,000 MG CAP PO SCH (10:13)
[2020-11-02] MEDS: Enoxaparin Sodium 30 MG/0.3 ML SYRINGE SC SCH (10:13)
[2020-11-02] MEDS: Carvedilol 6.25 MG TAB PO SCH ×2 (10:14→17:04)
[2020-11-02] MEDS: Lantus 1000 UNITS/10 ML VIAL SC SCH (10:39)
[2020-11-02] MEDS: glipiZIDE 5 MG TAB PO SCH ×2 (10:39→17:04)
[2020-11-02] MEDS ORDERED: traMADol HCl 50 MG TAB PO PRN (13:00)
[2020-11-02] MEDS: Ferrous Sulfate 325 MG TAB PO SCH (17:04)
[2020-11-02] MEDS: guaiFENesin/DM ER PO SCH (17:04)
[2020-11-02] MEDS: Atorvastatin Calcium 40 MG TAB PO SCH (21:51)
[2020-11-03] MEDS: guaiFENesin/DM ER PO SCH ×2 (02:44→17:24)
[2020-11-03 04:21] LABS: #Eosinphils 0.1 thou/uL (0.0-0.7); #Lymphocytes 1.2 thou/uL (1.20-3.40); #Monocytes 1.1 thou/uL (0.11-0.59); %Basophils 0.4 % (0.0-1.0); %Eosinophils 0.8 % (0.0-10.0); %Lymphocytes 11.4 % (21.0-51.0); %Monocytes 10.3 % (0.0-10.0); %Neutrophils 77.1 % (42.0-75.0); Hemoglobin 6.7 g/dL (14.0-18.0); Mean Corpuscular Hemoglobin 28.4 pg (27.0-31.0); Mean Corpuscular Volume 86.1 fL (78.0-98.0); Mean Platelet Volume 7.4 fL (7.4-10.4); Platelet Count 274 thou/uL (130-400); RBC Distribution Width 16.6 % (11.5-14.5); Red Blood Cell (RBC) Count 2.35 mill/uL (4.70-6.10); White Blood Cell (WBC) Count 10.4 thou/uL (4.8-10.8)
[2020-11-03 05:25] LABS: Calcium 8.4 mg/dL (7.8-10.44); Chloride 97 mmol/L (98-107); Potassium 4.3 mmol/L (3.5-5.1); Sodium 135 mmol/L (136-145)
[2020-11-03 05:26] LABS: Glucose 121 mg/dL (80-115)
[2020-11-03 05:28] LABS: Anion Gap 13 mmol/L (10-20); Carbon Dioxide 29 mmol/L (23-31)
[2020-11-03 05:29] LABS: Calc. Creatinine Clearance 39 mL/min (70-130)
[2020-11-03 05:30] LABS: BUN (Urea Nitrogen) 77 mg/dL (8.4-25.7)
[2020-11-03] MEDS: Fish Oil 1,000 MG CAP PO SCH (08:20)
[2020-11-03] MEDS: Aspirin 81 mg Enteric Coated Tablet PO SCH (08:20)
[2020-11-03] MEDS: glipiZIDE 5 MG TAB PO SCH ×2 (08:20→17:25)
[2020-11-03] MEDS: hydrALAZINE 25 MG TAB PO SCH ×3 (08:20→21:03)
[2020-11-03] MEDS: Famotidine 20 MG TAB PO SCH (08:20)
[2020-11-03] MEDS: Ferrous Sulfate 325 MG TAB PO SCH ×2 (08:24→17:24)
[2020-11-03] MEDS: Carvedilol 6.25 MG TAB PO SCH ×2 (08:24→17:25)
[2020-11-03] MEDS: Saccharomyces boulardii 250 MG CAP PO SCH (08:25)
[2020-11-03] MEDS: Lantus 1000 UNITS/10 ML VIAL SC SCH (08:25)
[2020-11-03] MEDS: NIFEdipine XL 90 MG TAB PO SCH (08:27)
[2020-11-03] MEDS ORDERED: Iron, Sodium Ferric Gluconate 250 MG in Sodium Chloride 0.9% 250 ML 250 ML IVPB SCH (09:15)
[2020-11-03] MEDS ORDERED: Iron Sucrose Complex 200 MG in Sodium Chloride 0.9% 100 ML IVPB SCH (09:15)
[2020-11-03] MEDS ORDERED: Metolazone 5 MG TAB PO SCH (09:45)
[2020-11-03] MEDS: Enoxaparin Sodium 30 MG/0.3 ML SYRINGE SC SCH (10:13)
[2020-11-03] MEDS: EPOETIN ALFA-EPBX (ESRD) 10,000 UNIT/ML VIAL SC SCH (13:32)
[2020-11-03] MEDS: DAPTOmycin 500 MG in Sodium Chloride 0.9% 100 ML IVPB SCH (17:25)
[2020-11-03] MEDS ORDERED: Sterile Water 10 ML VIAL IVP SCH (18:00)
[2020-11-03] MEDS ORDERED: Activase 2 MG VIAL CATH SCH (18:00)
[2020-11-03] MEDS: Atorvastatin Calcium 40 MG TAB PO SCH (21:04)
[2020-11-04 04:42] LABS: #Eosinphils 0.1 thou/uL (0.0-0.7); #Lymphocytes 1.5 thou/uL (1.20-3.40); #Monocytes 1.2 thou/uL (0.11-0.59); #Neutrophils 8.9 thou/uL (1.40-6.50); %Basophils 0.2 % (0.0-1.0); %Eosinophils 0.7 % (0.0-10.0); %Lymphocytes 12.5 % (21.0-51.0); %Monocytes 10.2 % (0.0-10.0); %Neutrophils 76.4 % (42.0-75.0); Hemoglobin 7.2 g/dL (14.0-18.0); Mean Corpuscular HGB CONC 32.5 g/dL (32.0-36.0); Mean Corpuscular Hemoglobin 28.3 pg (27.0-31.0); Mean Corpuscular Volume 87.1 fL (78.0-98.0); Mean Platelet Volume 7.9 fL (7.4-10.4); Platelet Count 313 thou/uL (130-400); RBC Distribution Width 16.6 % (11.5-14.5); Red Blood Cell (RBC) Count 2.56 mill/uL (4.70-6.10); White Blood Cell (WBC) Count 11.6 thou/uL (4.8-10.8)
[2020-11-04 04:55] LABS: Anion Gap 16 mmol/L (10-20); BUN (Urea Nitrogen) 93 mg/dL (8.4-25.7); Calc. Creatinine Clearance 36 mL/min (70-130); Calcium 8.4 mg/dL (7.8-10.44); Carbon Dioxide 26 mmol/L (23-31); Chloride 98 mmol/L (98-107); Glucose 126 mg/dL (80-115); Potassium 4.9 mmol/L (3.5-5.1); Sodium 135 mmol/L (136-145)
[2020-11-04] MEDS: guaiFENesin/DM ER PO SCH ×2 (05:47→16:15)
[2020-11-04] MEDS: Carvedilol 6.25 MG TAB PO SCH ×2 (09:32→16:14)
[2020-11-04] MEDS: NIFEdipine XL 90 MG TAB PO SCH (09:33)
[2020-11-04] MEDS: Ferrous Sulfate 325 MG TAB PO SCH ×2 (09:34→16:15)
[2020-11-04] MEDS: Famotidine 20 MG TAB PO SCH (09:34)
[2020-11-04] MEDS: Aspirin 81 mg Enteric Coated Tablet PO SCH (09:34)
[2020-11-04] MEDS: Saccharomyces boulardii 250 MG CAP PO SCH (09:34)
[2020-11-04] MEDS: glipiZIDE 5 MG TAB PO SCH ×2 (09:34→16:14)
[2020-11-04] MEDS: Fish Oil 1,000 MG CAP PO SCH (09:34)
[2020-11-04] MEDS: hydrALAZINE 25 MG TAB PO SCH ×3 (09:34→21:04)
[2020-11-04] MEDS: Enoxaparin Sodium 30 MG/0.3 ML SYRINGE SC SCH (09:35)
[2020-11-04] MEDS: DAPTOmycin 500 MG in Sodium Chloride 0.9% 100 ML IVPB SCH (09:36)
[2020-11-04] MEDS: Lantus 1000 UNITS/10 ML VIAL SC SCH (11:25)
[2020-11-04] MEDS ORDERED: ALPRAZolam 0.25 MG TAB PO SCH (15:15)
[2020-11-04] MEDS: methylPREDNISolone Sod Succ 40 MG VIAL IVP SCH ×3 (16:15→23:53)
[2020-11-04] MEDS: ALPRAZolam 0.25 MG TAB PO SCH (21:04)
[2020-11-04] MEDS: Albumin 25% 25 GM/100 ML BOT IVPB SCH (21:04)
[2020-11-04] MEDS: Atorvastatin Calcium 40 MG TAB PO SCH (21:04)
[2020-11-05 04:45] LABS: Hemoglobin 7.2 g/dL (14.0-18.0); Platelet Count 332 thou/uL (130-400)
[2020-11-05 05:14] LABS: Anion Gap 22 mmol/L (10-20); BUN (Urea Nitrogen) 90 mg/dL (8.4-25.7); CK (CPK) 43 U/L (30-200); Calc. Creatinine Clearance 34 mL/min (70-130); Calcium 8.8 mg/dL (7.8-10.44); Carbon Dioxide 22 mmol/L (23-31); Chloride 98 mmol/L (98-107); Glucose 224 mg/dL (80-115); Potassium 4.8 mmol/L (3.5-5.1); Sodium 137 mmol/L (136-145)
[2020-11-05] MEDS: guaiFENesin/DM ER PO SCH ×2 (05:16→16:28)
[2020-11-05] MEDS: methylPREDNISolone Sod Succ 40 MG VIAL IVP SCH ×3 (05:17→16:28)
[2020-11-05] MEDS: Albumin 25% 25 GM/100 ML BOT IVPB SCH ×3 (05:17→21:11)
[2020-11-05] MEDS: HumaLOG 300 UNITS/3 ML VIAL SC PRN ×3 (05:19→20:18)
[2020-11-05] MEDS: Aspirin 81 mg Enteric Coated Tablet PO SCH (09:16)
[2020-11-05] MEDS: hydrALAZINE 25 MG TAB PO SCH ×3 (09:16→20:16)
[2020-11-05] MEDS: Saccharomyces boulardii 250 MG CAP PO SCH (09:16)
[2020-11-05] MEDS: ALPRAZolam 0.25 MG TAB PO SCH ×2 (09:16→20:16)
[2020-11-05] MEDS: Fish Oil 1,000 MG CAP PO SCH (09:16)
[2020-11-05] MEDS: Famotidine 20 MG TAB PO SCH (09:17)
[2020-11-05] MEDS: glipiZIDE 5 MG TAB PO SCH ×2 (09:17→16:27)
[2020-11-05] MEDS: Ferrous Sulfate 325 MG TAB PO SCH ×2 (09:17→16:28)
[2020-11-05] MEDS: NIFEdipine XL 90 MG TAB PO SCH (09:17)
[2020-11-05] MEDS: Carvedilol 6.25 MG TAB PO SCH ×3 (09:17→16:27)
[2020-11-05] MEDS: Enoxaparin Sodium 30 MG/0.3 ML SYRINGE SC SCH (10:13)
[2020-11-05] MEDS: Lantus 1000 UNITS/10 ML VIAL SC SCH (10:13)
[2020-11-05] MEDS: DAPTOmycin 500 MG in Sodium Chloride 0.9% 100 ML IVPB SCH (13:17)
[2020-11-05 13:25] LABS: Bilirubin Large (Negative); Blood, Urine Large (Negative); Glucose, Urine (Dipstick) Negative (Negative); Ketone, Urine 15 mg/dL (Negative); Leukocyte Moderate (Negative); Nitrite Positive (Negative); Protein, Urine (Dipstick) 100 mg/dL (Neg-Trace); Specific Gravity, Urine 1.025 (1.005-1.030); Urobilinogen 0.2 mg/dL (Less than 2)
[2020-11-05 13:26] LABS: Creatinine, Urine 148.27 mg/dL (63-166)
[2020-11-05 13:28] LABS: Clarity Turbid (Clear)
[2020-11-05 13:29] LABS: Bacteria/HPF 4+ HPF (None Seen); RBC/HPF Greater than 50 HPF (0-3); Yeast-Budding 1+ HPF (None Seen)
[2020-11-05] MEDS: Cefepime 1 GM in Sodium Chloride 0.9% 100 ML IVPB SCH (16:30)
[2020-11-05] MEDS ORDERED: Lidocaine 1% (PF) 30 ML VIAL ONE (17:39)
[2020-11-05] MEDS ORDERED: Lidocaine 1% w/Epinephrine 1:100K 20 ML VIAL ONE ×2 (18:22→18:25)
[2020-11-05 20:06] LABS: Fluid, Triglycerides Less than 11 mg/dL (Not Available); Pleural Fluid, Amylase Less than 30 U/L (Not Available); Pleural Fluid, Glucose 285 mg/dL; Pleural Fluid, LDH 62 U/L (Not Available); Pleural Fluid, Protein 1.6 g/dL
[2020-11-05 20:12] LABS: RBC Count-Automated (BF) 269 /cu.mm; WBC/Nucleated-Auto (BF) 40 uL
[2020-11-05] MEDS: Atorvastatin Calcium 40 MG TAB PO SCH (20:16)
[2020-11-05 20:36] LABS: BF Color Yellow; Body Fluid Source Thoracentesis Fluid; Clarity Hazy (Clear); Tube # EDTA
[2020-11-05 20:53] LABS: BF Segmented Neutrophils 11 %; Cell Count Non Hematic 28 %; Lymphocytes 61 %
[2020-11-06] MEDS: methylPREDNISolone Sod Succ 40 MG VIAL IVP SCH ×4 (01:05→18:00)
[2020-11-06] MEDS: Cefepime 1 GM in Sodium Chloride 0.9% 100 ML IVPB SCH ×2 (01:05→14:00)
[2020-11-06 03:35] LABS: Hemoglobin 6.9 g/dL (14.0-18.0); Platelet Count 341 thou/uL (130-400)
[2020-11-06 03:59] LABS: Anion Gap 17 mmol/L (10-20); BUN (Urea Nitrogen) 110 mg/dL (8.4-25.7); Calc. Creatinine Clearance 33 mL/min (70-130); Carbon Dioxide 24 mmol/L (23-31); Chloride 99 mmol/L (98-107); Glucose 312 mg/dL (80-115); Potassium 4.2 mmol/L (3.5-5.1); Sodium 136 mmol/L (136-145)
[2020-11-06] MEDS: guaiFENesin/DM ER PO SCH ×2 (04:34→19:13)
[2020-11-06] MEDS: HumaLOG 300 UNITS/3 ML VIAL SC PRN ×2 (05:25→22:03)
[2020-11-06] MEDS ORDERED: Furosemide 100 MG/10 ML VIAL SLOW IVP SCH (11:06)
[2020-11-06] MEDS ORDERED: Labetalol HCl 100 MG/20 ML VIAL SLOW IVP PRN (11:45)
[2020-11-06] MEDS ORDERED: hydrALAZINE 20 MG/ML VIAL SLOW IVP PRN (11:45)
[2020-11-06] MEDS: glipiZIDE 5 MG TAB PO SCH (19:08)
[2020-11-06] MEDS: ALPRAZolam 0.25 MG TAB PO SCH ×2 (19:09→22:07)
[2020-11-06] MEDS: Ferrous Sulfate 325 MG TAB PO SCH (19:09)
[2020-11-06] MEDS: Carvedilol 6.25 MG TAB PO SCH (19:09)
[2020-11-06] MEDS: Aspirin 81 mg Enteric Coated Tablet PO SCH (19:09)
[2020-11-06] MEDS: DAPTOmycin 500 MG in Sodium Chloride 0.9% 100 ML IVPB SCH (19:10)
[2020-11-06] MEDS: Enoxaparin Sodium 30 MG/0.3 ML SYRINGE SC SCH (19:10)
[2020-11-06] MEDS: hydrALAZINE 25 MG TAB PO SCH ×3 (19:10→22:07)
[2020-11-06] MEDS: Famotidine 20 MG TAB PO SCH (19:10)
[2020-11-06] MEDS: Fish Oil 1,000 MG CAP PO SCH (19:10)
[2020-11-06] MEDS: NIFEdipine XL 90 MG TAB PO SCH (19:11)
[2020-11-06] MEDS: Saccharomyces boulardii 250 MG CAP PO SCH (19:11)
[2020-11-06] MEDS: Lantus 1000 UNITS/10 ML VIAL SC SCH (22:02)
[2020-11-06] MEDS: Atorvastatin Calcium 40 MG TAB PO SCH (22:07)
[2020-11-07] MEDS: methylPREDNISolone Sod Succ 40 MG VIAL IVP SCH ×4 (00:29→20:44)
[2020-11-07] MEDS: guaiFENesin/DM ER PO SCH ×2 (03:38→17:39)
[2020-11-07] MEDS: Cefepime 1 GM in Sodium Chloride 0.9% 100 ML IVPB SCH ×2 (03:38→13:39)
[2020-11-07 05:25] LABS: Anion Gap 19 mmol/L (10-20); Calc. Creatinine Clearance 33 mL/min (70-130); Calcium 8.7 mg/dL (7.8-10.44); Carbon Dioxide 25 mmol/L (23-31); Chloride 101 mmol/L (98-107); Glucose 210 mg/dL (80-115); Potassium 4.5 mmol/L (3.5-5.1); Sodium 140 mmol/L (136-145)
[2020-11-07 05:35] LABS: BUN (Urea Nitrogen) 116 mg/dL (8.4-25.7)
[2020-11-07 06:24] LABS: Hemoglobin 7.6 g/dL (14.0-18.0); Mean Corpuscular Hemoglobin 28.8 pg (27.0-31.0); Mean Corpuscular Volume 90.1 fL (78.0-98.0); Mean Platelet Volume 7.7 fL (7.4-10.4); Platelet Count 331 thou/uL (130-400); RBC Distribution Width 18.7 % (11.5-14.5); Red Blood Cell (RBC) Count 2.63 mill/uL (4.70-6.10); White Blood Cell (WBC) Count 18.3 thou/uL (4.8-10.8)
[2020-11-07] MEDS: glipiZIDE 5 MG TAB PO SCH ×2 (07:30→17:37)
[2020-11-07 07:35] LABS: Anisocytosis MODERATE=16-30 cells (100X) (0-5/hpf); Band 15 % (5-11); Lymphocytes 4 % (21-51); MDiff Complete? YES; Monocytes 2 % (0-10); Neutrophil 78 % (42-75); Nucleated RBC 1 % (0); Poikilocytosis SLIGHT = 6-15 cells (100X) (0-5/hpf); Polychromasia SLIGHT = 2-3 cells (100X) (0-2/hpf); Target Cells SLIGHT = 2-5 cells (100X) (0-1/hpf)
[2020-11-07] MEDS: Ferrous Sulfate 325 MG TAB PO SCH ×2 (08:00→17:39)
[2020-11-07] MEDS: Furosemide 40 MG/4 ML VIAL SLOW IVP SCH ×2 (08:23→20:38)
[2020-11-07] MEDS: Enoxaparin Sodium 30 MG/0.3 ML SYRINGE SC SCH (08:23)
[2020-11-07] MEDS ORDERED: Lantus 1000 UNITS/10 ML VIAL SC SCH (09:00)
[2020-11-07] MEDS: Fish Oil 1,000 MG CAP PO SCH (09:00)
[2020-11-07] MEDS: DAPTOmycin 500 MG in Sodium Chloride 0.9% 100 ML IVPB SCH (09:55)
[2020-11-07] MEDS: NIFEdipine XL 60 MG TAB PO SCH (09:55)
[2020-11-07] MEDS: hydrALAZINE 25 MG TAB PO SCH ×3 (09:56→20:40)
[2020-11-07] MEDS: Carvedilol 6.25 MG TAB PO SCH ×2 (09:56→17:39)
[2020-11-07] MEDS: Saccharomyces boulardii 250 MG CAP PO SCH (10:25)
[2020-11-07] MEDS: Famotidine 20 MG TAB PO SCH (10:25)
[2020-11-07] MEDS: ALPRAZolam 0.25 MG TAB PO SCH ×2 (10:26→20:37)
[2020-11-07] MEDS: Aspirin 81 mg Enteric Coated Tablet PO SCH (10:26)
[2020-11-07] MEDS: HumaLOG 300 UNITS/3 ML VIAL SC PRN ×3 (10:36→20:50)
[2020-11-07] MEDS: Lantus 1000 UNITS/10 ML VIAL SC SCH ×2 (20:17→20:43)
[2020-11-07] MEDS: Atorvastatin Calcium 40 MG TAB PO SCH (20:37)
[2020-11-08] MEDS: Cefepime 1 GM in Sodium Chloride 0.9% 100 ML IVPB SCH ×2 (01:25→13:32)
[2020-11-08] MEDS: guaiFENesin/DM ER PO SCH ×2 (04:00→16:23)
[2020-11-08 05:11] LABS: #Lymphocytes 0.8 thou/uL (1.20-3.40); #Monocytes 0.5 thou/uL (0.11-0.59); #Neutrophils 14.8 thou/uL (1.40-6.50); %Basophils 0.2 % (0.0-1.0); %Eosinophils 0.1 % (0.0-10.0); %Lymphocytes 4.9 % (21.0-51.0); %Monocytes 3.2 % (0.0-10.0); %Neutrophils 91.7 % (42.0-75.0); Hemoglobin 5.5 g/dL (14.0-18.0); Mean Corpuscular HGB CONC 33.1 g/dL (32.0-36.0); Mean Corpuscular Hemoglobin 29.9 pg (27.0-31.0); Mean Corpuscular Volume 90.2 fL (78.0-98.0); Platelet Count 302 thou/uL (130-400); RBC Distribution Width 18.7 % (11.5-14.5); Red Blood Cell (RBC) Count 1.83 mill/uL (4.70-6.10); White Blood Cell (WBC) Count 16.1 thou/uL (4.8-10.8)
[2020-11-08 05:13] LABS: Anion Gap 17 mmol/L (10-20); Calc. Creatinine Clearance 30 mL/min (70-130); Calcium 8.4 mg/dL (7.8-10.44); Carbon Dioxide 24 mmol/L (23-31); Chloride 100 mmol/L (98-107); Glucose 260 mg/dL (80-115); Potassium 4.2 mmol/L (3.5-5.1); Sodium 137 mmol/L (136-145)
[2020-11-08 05:26] LABS: BUN (Urea Nitrogen) 127 mg/dL (8.4-25.7)
[2020-11-08] MEDS: HumaLOG 300 UNITS/3 ML VIAL SC PRN ×4 (05:33→21:57)
[2020-11-08 06:01] LABS: #Lymphocytes 0.7 thou/uL (1.20-3.40); #Monocytes 0.4 thou/uL (0.11-0.59); #Neutrophils 13.3 thou/uL (1.40-6.50); %Basophils 0.3 % (0.0-1.0); %Eosinophils 0.1 % (0.0-10.0); %Lymphocytes 4.9 % (21.0-51.0); %Neutrophils 91.7 % (42.0-75.0); Mean Corpuscular Hemoglobin 30.2 pg (27.0-31.0); Mean Corpuscular Volume 91.4 fL (78.0-98.0); Mean Platelet Volume 7.6 fL (7.4-10.4); Platelet Count 270 thou/uL (130-400); RBC Distribution Width 18.9 % (11.5-14.5); Red Blood Cell (RBC) Count 1.99 mill/uL (4.70-6.10); White Blood Cell (WBC) Count 14.5 thou/uL (4.8-10.8)
[2020-11-08] MEDS: methylPREDNISolone Sod Succ 40 MG VIAL IVP SCH ×2 (08:11→21:31)
[2020-11-08] MEDS: glipiZIDE 5 MG TAB PO SCH ×2 (08:11→16:22)
[2020-11-08] MEDS: Furosemide 40 MG/4 ML VIAL SLOW IVP SCH ×2 (08:11→21:30)
[2020-11-08] MEDS: Pantoprazole 40 MG VIAL IVP SCH ×2 (08:11→21:31)
[2020-11-08] MEDS: ALPRAZolam 0.25 MG TAB PO SCH ×2 (08:12→21:30)
[2020-11-08] MEDS: Carvedilol 6.25 MG TAB PO SCH ×2 (08:12→16:23)
[2020-11-08] MEDS: Ferrous Sulfate 325 MG TAB PO SCH ×2 (08:12→16:23)
[2020-11-08] MEDS: Aspirin 81 mg Enteric Coated Tablet PO SCH (08:12)
[2020-11-08] MEDS: NIFEdipine XL 60 MG TAB PO SCH (08:13)
[2020-11-08] MEDS: Fish Oil 1,000 MG CAP PO SCH (08:13)
[2020-11-08] MEDS: Enoxaparin Sodium 30 MG/0.3 ML SYRINGE SC SCH (08:13)
[2020-11-08] MEDS: Lantus 1000 UNITS/10 ML VIAL SC SCH ×2 (08:14→21:56)
[2020-11-08] MEDS: Saccharomyces boulardii 250 MG CAP PO SCH (08:14)
[2020-11-08] MEDS: hydrALAZINE 25 MG TAB PO SCH ×3 (08:14→21:56)
[2020-11-08 09:51] LABS: Glucose 248 mg/dL (80-115)
[2020-11-08] MEDS: DAPTOmycin 500 MG in Sodium Chloride 0.9% 100 ML IVPB SCH (10:25)
[2020-11-08 10:37] LABS: CMV DNA-PCR Test Positive < 200 IU/mL (Negative)
[2020-11-08 16:20] LABS: Glucose 288 mg/dL (80-115)
[2020-11-08] MEDS ORDERED: VANCOMYCIN 2 GRAM/400 ML BAG 2 GM in Premix Bag 1 BAG IVPB SCH (17:45)
[2020-11-08] MEDS: Atorvastatin Calcium 40 MG TAB PO SCH (21:30)
[2020-11-09] MEDS: Cefepime 1 GM in Sodium Chloride 0.9% 100 ML IVPB SCH ×2 (01:28→13:59)
[2020-11-09 04:07] LABS: Anion Gap 24 mmol/L (10-20); Calc. Creatinine Clearance 27 mL/min (70-130); Calcium 8.2 mg/dL (7.8-10.44); Carbon Dioxide 17 mmol/L (23-31); Chloride 100 mmol/L (98-107); Glucose 339 mg/dL (80-115); Potassium 4.3 mmol/L (3.5-5.1); Sodium 137 mmol/L (136-145)
[2020-11-09 04:18] LABS: BUN (Urea Nitrogen) 146 mg/dL (8.4-25.7)
[2020-11-09] MEDS: guaiFENesin/DM ER PO SCH ×2 (04:59→16:51)
[2020-11-09 05:11] LABS: Band 16 % (5-11); Hemoglobin 7.4 g/dL (14.0-18.0); Lymphocytes 1 % (21-51); MDiff Complete? YES; Mean Corpuscular HGB CONC 32.9 g/dL (32.0-36.0); Mean Corpuscular Hemoglobin 30.1 pg (27.0-31.0); Mean Corpuscular Volume 91.4 fL (78.0-98.0); Mean Platelet Volume 8.3 fL (7.4-10.4); Monocytes 4 % (0-10); Neutrophil 79 % (42-75); Platelet Count 263 thou/uL (130-400); RBC Distribution Width 18.1 % (11.5-14.5); Red Blood Cell (RBC) Count 2.46 mill/uL (4.70-6.10); White Blood Cell (WBC) Count 17.5 thou/uL (4.8-10.8)
[2020-11-09] MEDS: Carvedilol 6.25 MG TAB PO SCH ×2 (08:11→17:41)
[2020-11-09] MEDS: Aspirin 81 mg Enteric Coated Tablet PO SCH (08:11)
[2020-11-09] MEDS: ALPRAZolam 0.25 MG TAB PO SCH ×2 (08:11→20:27)
[2020-11-09] MEDS: Fish Oil 1,000 MG CAP PO SCH (08:12)
[2020-11-09] MEDS: hydrALAZINE 25 MG TAB PO SCH ×3 (08:12→20:27)
[2020-11-09] MEDS: Furosemide 40 MG/4 ML VIAL SLOW IVP SCH (08:12)
[2020-11-09] MEDS: Saccharomyces boulardii 250 MG CAP PO SCH (08:12)
[2020-11-09] MEDS: Ferrous Sulfate 325 MG TAB PO SCH ×2 (08:12→16:51)
[2020-11-09] MEDS: glipiZIDE 5 MG TAB PO SCH ×2 (08:12→16:51)
[2020-11-09] MEDS: methylPREDNISolone Sod Succ 40 MG VIAL IVP SCH ×2 (08:13→21:11)
[2020-11-09] MEDS: Enoxaparin Sodium 30 MG/0.3 ML SYRINGE SC SCH (08:18)
[2020-11-09] MEDS: Lantus 1000 UNITS/10 ML VIAL SC SCH ×2 (08:18→21:12)
[2020-11-09] MEDS ORDERED: NIFEdipine XL 60 MG TAB PO SCH (09:00)
[2020-11-09] MEDS: Pantoprazole 40 MG VIAL IVP SCH ×2 (10:12→21:11)
[2020-11-09 11:29] LABS: HBSAB Concentration Less than 8.00 mIU/mL; HBSAg Index 0.17 S/CO (0-0.99); Hep B Core Total Ab Non-Reactive (NonReactive); Hep B Core Total Index 0.04 S/CO (0-0.79); Hep B Surf AB Non-Reactive (NonReactive); Hep B Surf Ag Non-Reactive S/CO (NonReactive); Hep C IgG Ab Non-Reactive (NonReactive); Hep C Index 0.08 S/CO (0-0.79)
[2020-11-09] MEDS ORDERED: Albumin 25% 25 GM/100 ML BOT IVPB PRN (12:29)
[2020-11-09] MEDS ORDERED: Norepinephrine 8 MG/0.9% NS 250 ML IVPB SCH (12:30)
[2020-11-09] MEDS ORDERED: Vancomycin HCl 1 GM in Premix Bag 1 BAG IVPB SCH (18:00)
[2020-11-09 19:42] LABS: Hemoglobin 6.6 g/dL (14.0-18.0); Mean Corpuscular HGB CONC 32.9 g/dL (32.0-36.0); Mean Corpuscular Hemoglobin 30.4 pg (27.0-31.0); Mean Corpuscular Volume 92.5 fL (78.0-98.0); Mean Platelet Volume 8.3 fL (7.4-10.4); Platelet Count 291 thou/uL (130-400); RBC Distribution Width 18.5 % (11.5-14.5); Red Blood Cell (RBC) Count 2.17 mill/uL (4.70-6.10); White Blood Cell (WBC) Count 20.1 thou/uL (4.8-10.8)
[2020-11-09 19:46] LABS: Actual Bicarbonate (HCO3a) 13.7 mEq/L (22-28); Base Excess (BEa) -11.3 mEq/L (-2.0 to +3.0); Calcium, Ionized (arterial) 1.15 mmol/L (1.12-1.30); Carboxyhemoglobin (COHb) 0.9 gm% (0.0-3.0); Hemoglobin (Hb) 7.1 g/dL (14.0-18.0); O2 Tension (PaO2), arterial 61.1 mmHg (> 70.0); Potassium - ABG Lab 4.61 mmol/L (3.70-5.30); pH, Arterial 7.32 (7.35-7.45)
[2020-11-09 19:49] LABS: Puncture Site RBA
[2020-11-09 19:59] LABS: Vancomycin, Random 16.7 ug/mL (See Comment)
[2020-11-09 20:02] LABS: ALT (SGPT) 12 U/L (8-55); AST (SGOT) 9 U/L (5-34); Albumin 2.9 g/dL (3.4-4.8); Alkaline Phosphatase 81 U/L (40-110); Anion Gap 29 mmol/L (10-20); BUN (Urea Nitrogen) 124 mg/dL (8.4-25.7); Bilirubin, Total 0.5 mg/dL (0.2-1.2); Calc. Creatinine Clearance 30 mL/min (70-130); Calcium 8.2 mg/dL (7.8-10.44); Carbon Dioxide 14 mmol/L (23-31); Chloride 97 mmol/L (98-107); Glucose 374 mg/dL (80-115); Potassium 4.8 mmol/L (3.5-5.1); Protein, Total 5.9 g/dL (5.8-8.1); Sodium 135 mmol/L (136-145)
[2020-11-09 20:07] LABS: Troponin I Less than 0.010 ng/mL (< 0.028)
[2020-11-09 20:12] LABS: Anisocytosis SLIGHT = 6-15 cells (100X) (0-5/hpf); Band 18 % (5-11); Burr Cells SLIGHT = 2-5 cells (100X) (0-1/hpf); Helmet Cells SLIGHT = 2-5 cells (100X) (0-1/hpf); Lymphocytes 8 % (21-51); MDiff Complete? YES; Monocytes 3 % (0-10); Neutrophil 71 % (42-75); Platelet Morphology Comment Appears Adequate; Polychromasia MODERATE = 3-4 cells (100X) (0-2/hpf); Schistocytes SLIGHT = 2-5 cells (100X) (0-1/hpf); Target Cells SLIGHT = 2-5 cells (100X) (0-1/hpf); Tear Drops SLIGHT = 2-5 cells (100X) (0-1/hpf)
[2020-11-09] MEDS: Atorvastatin Calcium 40 MG TAB PO SCH (20:27)
[2020-11-09] MEDS ORDERED: Vancomycin HCl 750 MG in Sodium Chloride 0.9% 250 ML 250 ML IVPB SCH (21:00)
[2020-11-09] MEDS: HumaLOG 300 UNITS/3 ML VIAL SC PRN (21:12)
[2020-11-10] MEDS: Cefepime 1 GM in Sodium Chloride 0.9% 100 ML IVPB SCH (01:35)
[2020-11-10] MEDS: guaiFENesin/DM ER PO SCH ×2 (03:02→15:54)
[2020-11-10 04:50] LABS: Anion Gap 31 mmol/L (10-20); Calc. Creatinine Clearance 28 mL/min (70-130); Calcium 8.5 mg/dL (7.8-10.44); Carbon Dioxide 13 mmol/L (23-31); Chloride 96 mmol/L (98-107); Glucose 400 mg/dL (80-115); Sodium 135 mmol/L (136-145)
[2020-11-10 04:52] LABS: Band 11 % (5-11); Burr Cells SLIGHT = 2-5 cells (100X) (0-1/hpf); Lymphocytes 5 % (21-51); MDiff Complete? YES; Mean Corpuscular Hemoglobin 29.7 pg (27.0-31.0); Mean Corpuscular Volume 93.1 fL (78.0-98.0); Mean Platelet Volume 8.6 fL (7.4-10.4); Metamyelocyte 1 % (0-0); Monocytes 2 % (0-10); Neutrophil 81 % (42-75); Platelet Count 263 thou/uL (130-400); Polychromasia MODERATE = 3-4 cells (100X) (0-2/hpf); RBC Distribution Width 18.1 % (11.5-14.5); Red Blood Cell (RBC) Count 2.35 mill/uL (4.70-6.10); Schistocytes SLIGHT = 2-5 cells (100X) (0-1/hpf); White Blood Cell (WBC) Count 17.7 thou/uL (4.8-10.8)
[2020-11-10 05:01] LABS: BUN (Urea Nitrogen) 118 mg/dL (8.4-25.7)
[2020-11-10] MEDS: Aspirin 81 mg Enteric Coated Tablet PO SCH (08:02)
[2020-11-10] MEDS: glipiZIDE 5 MG TAB PO SCH ×2 (08:02→15:50)
[2020-11-10] MEDS: Saccharomyces boulardii 250 MG CAP PO SCH (08:02)
[2020-11-10] MEDS: ALPRAZolam 0.25 MG TAB PO SCH (08:02)
[2020-11-10] MEDS: Fish Oil 1,000 MG CAP PO SCH (08:02)
[2020-11-10] MEDS: Enoxaparin Sodium 30 MG/0.3 ML SYRINGE SC SCH (08:02)
[2020-11-10] MEDS: methylPREDNISolone Sod Succ 40 MG VIAL IVP SCH ×2 (08:02→08:30)
[2020-11-10] MEDS: Ferrous Sulfate 325 MG TAB PO SCH ×2 (08:02→15:49)
[2020-11-10] MEDS: Pantoprazole 40 MG VIAL IVP SCH ×2 (08:03→20:10)
[2020-11-10] MEDS: hydrALAZINE 25 MG TAB PO SCH (08:04)
[2020-11-10] MEDS: Lantus 1000 UNITS/10 ML VIAL SC SCH ×2 (08:26→20:11)
[2020-11-10] MEDS ORDERED: Heparin 10,000 UNITS/ 10 ML VIAL ONE (08:40)
[2020-11-10] MEDS ORDERED: Iron Sucrose Complex 100 MG in Sodium Chloride 0.9% 100 ML IVPB SCH (09:00)
[2020-11-10] MEDS ORDERED: hydrALAZINE 25 MG TAB PO SCH (09:00)
[2020-11-10 09:16] LABS: Troponin I 0.055 ng/mL (< 0.028)
[2020-11-10] MEDS: Iron, Sodium Ferric Gluconate 125 MG in Sodium Chloride 0.9% 100 ML IVPB SCH (09:39)
[2020-11-10] MEDS: EPOETIN ALFA-EPBX (ESRD) 10,000 UNIT/ML VIAL SC SCH (09:42)
[2020-11-10] MEDS: Sodium Bicarb 50 MEQ/50 ML Abboject 8.4% SYRINGE ONE (11:53)
[2020-11-10] MEDS ORDERED: Vancomycin 1.5 GRAM/300 ML BAG 1.5 GM in Premix Bag 1 BAG IVPB SCH (13:00)
[2020-11-10] MEDS ORDERED: Vancomycin HCl 1.25 GM in Sodium Chloride 0.9% 250 ML 250 ML IVPB SCH (13:00)
[2020-11-10] MEDS ORDERED: Vancomycin HCl 750 MG in Sodium Chloride 0.9% 250 ML 250 ML IVPB SCH (13:00)
[2020-11-10] MEDS ORDERED: Vancomycin 1 GM in Premix Bag 1 BAG IVPB SCH (13:00)
[2020-11-10] MEDS ORDERED: HOLD VANCOMYCIN FOR LEVEL >20 FS SCH (13:00)
[2020-11-10 13:47] LABS: Vancomycin, Random 20.8 ug/mL (See Comment)
[2020-11-10 15:00] LABS: ALT (SGPT) 392 U/L (8-55); AST (SGOT) 570 U/L (5-34); Albumin 2.8 g/dL (3.4-4.8); Alkaline Phosphatase 91 U/L (40-110); Anion Gap 34 mmol/L (10-20); Bilirubin, Total 0.9 mg/dL (0.2-1.2); Calc. Creatinine Clearance 25 mL/min (70-130); Calcium 8.4 mg/dL (7.8-10.44); Carbon Dioxide 12 mmol/L (23-31); Chloride 95 mmol/L (98-107); Globulin 3.4 g/dL (2.4-3.5); Glucose 456 mg/dL (80-115); Potassium 5.5 mmol/L (3.5-5.1); Protein, Total 6.2 g/dL (5.8-8.1); Sodium 135 mmol/L (136-145)
[2020-11-10 15:04] LABS: BUN (Urea Nitrogen) 125 mg/dL (8.4-25.7)
[2020-11-10] MEDS ORDERED: Sodium Bicarb 50 MEQ/50 ML Abboject 8.4% SYRINGE IVP SCH (15:30)
[2020-11-10] MEDS: Carvedilol 6.25 MG TAB PO SCH (16:12)
[2020-11-10] MEDS: Cefepime 0.5 GM, IV Admixture Fee-Chemo 1 UNITS in Sodium Chloride 0.9% 100 ML IVPB SCH (18:16)
[2020-11-10] MEDS: HumaLOG 300 UNITS/3 ML VIAL SC PRN (19:32)
[2020-11-10] MEDS: Atorvastatin Calcium 40 MG TAB PO SCH (20:10)
[2020-11-11] MEDS: guaiFENesin/DM ER PO SCH (03:51)
[2020-11-11] MEDS: HumaLOG 300 UNITS/3 ML VIAL SC PRN ×4 (03:52→21:07)
[2020-11-11 05:07] LABS: Anion Gap 30 mmol/L (10-20); BUN (Urea Nitrogen) 90 mg/dL (8.4-25.7); Calc. Creatinine Clearance 33 mL/min (70-130); Calcium 8.2 mg/dL (7.8-10.44); Carbon Dioxide 19 mmol/L (23-31); Chloride 94 mmol/L (98-107); Glucose 326 mg/dL (80-115); Potassium 3.9 mmol/L (3.5-5.1); Sodium 139 mmol/L (136-145)
[2020-11-11 05:16] LABS: Band 12 % (5-11); Hemoglobin 8.2 g/dL (14.0-18.0); Lymphocytes 3 % (21-51); MDiff Complete? YES; Mean Corpuscular HGB CONC 32.7 g/dL (32.0-36.0); Mean Corpuscular Volume 91.6 fL (78.0-98.0); Mean Platelet Volume 8.5 fL (7.4-10.4); Monocytes 3 % (0-10); Neutrophil 82 % (42-75); Platelet Clumps SLIGHT; Platelet Count 290 thou/uL (130-400); Platelet Morphology Comment PLT clumps seen-ADEQ; RBC Distribution Width 17.6 % (11.5-14.5); Red Blood Cell (RBC) Count 2.75 mill/uL (4.70-6.10); White Blood Cell (WBC) Count 24.3 thou/uL (4.8-10.8)
[2020-11-11] MEDS: Saccharomyces boulardii 250 MG CAP PO SCH (08:12)
[2020-11-11] MEDS: Enoxaparin Sodium 30 MG/0.3 ML SYRINGE SC SCH (08:13)
[2020-11-11] MEDS: glipiZIDE 5 MG TAB PO SCH (08:13)
[2020-11-11] MEDS: Pantoprazole 40 MG VIAL IVP SCH ×2 (08:13→20:22)
[2020-11-11] MEDS: Fish Oil 1,000 MG CAP PO SCH (08:13)
[2020-11-11] MEDS: methylPREDNISolone Sod Succ 40 MG VIAL IVP SCH (08:13)
[2020-11-11] MEDS: Ferrous Sulfate 325 MG TAB PO SCH ×2 (08:13→16:08)
[2020-11-11] MEDS: Carvedilol 6.25 MG TAB PO SCH ×2 (08:14→17:34)
[2020-11-11] MEDS: Lantus 1000 UNITS/10 ML VIAL SC SCH ×2 (08:14→21:06)
[2020-11-11 09:32] LABS: Vancomycin, Random 20.1 ug/mL (See Comment)
[2020-11-11] MEDS ORDERED: Heparin 10,000 UNITS/ 10 ML VIAL ONE (10:03)
[2020-11-11] MEDS: Iron, Sodium Ferric Gluconate 125 MG in Sodium Chloride 0.9% 100 ML IVPB SCH (10:30)
[2020-11-11] MEDS ORDERED: Lantus 1000 UNITS/10 ML VIAL SC SCH (12:45)
[2020-11-11] MEDS: GUAIFENESIN SF SOLN 200 MG/10 ML UDCUP PO SCH ×3 (16:08→23:28)
[2020-11-11] MEDS: Cefepime 0.5 GM, IV Admixture Fee-Chemo 1 UNITS in Sodium Chloride 0.9% 100 ML IVPB SCH (18:50)
[2020-11-11] MEDS: Atorvastatin Calcium 40 MG TAB PO SCH (20:22)
[2020-11-12] MEDS: GUAIFENESIN SF SOLN 200 MG/10 ML UDCUP PO SCH ×6 (02:48→23:22)
[2020-11-12] MEDS: HumaLOG 300 UNITS/3 ML VIAL SC PRN ×5 (04:17→22:22)
[2020-11-12 04:52] LABS: Anion Gap 18 mmol/L (10-20); BUN (Urea Nitrogen) 49 mg/dL (8.4-25.7); Calc. Creatinine Clearance 48 mL/min (70-130); Calcium 8.4 mg/dL (7.8-10.44); Carbon Dioxide 26 mmol/L (23-31); Chloride 97 mmol/L (98-107); Glucose 344 mg/dL (80-115); Potassium 3.6 mmol/L (3.5-5.1); Sodium 137 mmol/L (136-145)
[2020-11-12] MEDS: Acetaminophen 325 MG TAB PO PRN ×3 (05:01→12:45)
[2020-11-12 05:11] LABS: Band 4 % (5-11); Hemoglobin 8.3 g/dL (14.0-18.0); Hypochromia SLIGHT = 6-15 cells (100X) (0-5/hpf); Lymphocytes 8 % (21-51); MDiff Complete? YES; Mean Corpuscular HGB CONC 30.9 g/dL (32.0-36.0); Mean Corpuscular Hemoglobin 28.4 pg (27.0-31.0); Mean Corpuscular Volume 91.9 fL (78.0-98.0); Mean Platelet Volume 8.9 fL (7.4-10.4); Monocytes 3 % (0-10); Neutrophil 85 % (42-75); Platelet Count 283 thou/uL (130-400); Platelet Morphology Comment Appears Adequate; RBC Distribution Width 18.4 % (11.5-14.5); Red Blood Cell (RBC) Count 2.94 mill/uL (4.70-6.10)
[2020-11-12] MEDS ORDERED: Ziprasidone 20 MG VIAL IM SCH (06:00)
[2020-11-12] MEDS ORDERED: OLANZapine 10 MG VIAL IM SCH (06:00)
[2020-11-12] MEDS ORDERED: Sterile Water 10 ML VIAL FS PRN ×2 (06:00)
[2020-11-12] MEDS: Aspirin 81 mg Enteric Coated Tablet PO SCH (08:53)
[2020-11-12] MEDS: Saccharomyces boulardii 250 MG CAP PO SCH (08:53)
[2020-11-12] MEDS: Ferrous Sulfate 325 MG TAB PO SCH (08:53)
[2020-11-12] MEDS: Fish Oil 1,000 MG CAP PO SCH (08:53)
[2020-11-12] MEDS: methylPREDNISolone Sod Succ 40 MG VIAL IVP SCH (08:54)
[2020-11-12] MEDS: Pantoprazole 40 MG VIAL IVP SCH ×2 (08:54→22:09)
[2020-11-12] MEDS ORDERED: Heparin 10,000 UNITS/ 10 ML VIAL ONE (09:14)
[2020-11-12] MEDS ORDERED: Meropenem 500 MG in Sodium Chloride 0.9% 100 ML IVPB SCH (09:15)
[2020-11-12] MEDS: Enoxaparin Sodium 30 MG/0.3 ML SYRINGE SC SCH (09:41)
[2020-11-12] MEDS: Carvedilol 6.25 MG TAB PO SCH ×4 (09:42→22:09)
[2020-11-12] MEDS: Lantus 1000 UNITS/10 ML VIAL SC SCH ×3 (09:43→22:12)
[2020-11-12] MEDS: Iron, Sodium Ferric Gluconate 125 MG in Sodium Chloride 0.9% 100 ML IVPB SCH (12:39)
[2020-11-12] MEDS ORDERED: Vecuronium 10 MG VIAL ONE (16:07)
[2020-11-12] MEDS ORDERED: Atropine Sulfate 1 mg/10 ml Syringe ONE (16:19)
[2020-11-12] MEDS: Propofol 1,000 MG/100 ML VIAL IV PRN (16:30)
[2020-11-12] MEDS ORDERED: Propofol BOLUS 1,000 MG/100 ML VIAL IV PRN (16:45)
[2020-11-12 17:32] LABS: Actual Bicarbonate (HCO3a) 30.2 mEq/L (22-28); Base Excess (BEa) 4.1 mEq/L (-2.0 to +3.0); CO2 Tension 53.6 mmHg (35.0-45.0); Carboxyhemoglobin (COHb) 0.9 gm% (0.0-3.0); Hemoglobin (Hb) 9.3 g/dL (14.0-18.0); O2 Tension (PaO2), arterial 69.1 mmHg (> 70.0); Potassium - ABG Lab 3.82 mmol/L (3.70-5.30); pH, Arterial 7.37 (7.35-7.45)
[2020-11-12 17:39] LABS: Puncture Site LBA
[2020-11-12] MEDS: MEROPENEM 1 GM/50 ML 1 GM in Premix Bag 1 BAG IVPB SCH (22:01)
[2020-11-13] MEDS: HumaLOG 300 UNITS/3 ML VIAL SC PRN ×5 (01:16→20:55)
[2020-11-13] MEDS: Propofol 1,000 MG/100 ML VIAL IV PRN ×3 (01:20→15:49)
[2020-11-13] MEDS: GUAIFENESIN SF SOLN 200 MG/10 ML UDCUP PO SCH ×6 (03:25→21:48)
[2020-11-13 04:55] LABS: Hemoglobin 7.9 g/dL (14.0-18.0); Mean Corpuscular HGB CONC 32.2 g/dL (32.0-36.0); Mean Corpuscular Hemoglobin 30.1 pg (27.0-31.0); Mean Corpuscular Volume 93.5 fL (78.0-98.0); Mean Platelet Volume 8.7 fL (7.4-10.4); Platelet Count 222 thou/uL (130-400); RBC Distribution Width 17.9 % (11.5-14.5); Red Blood Cell (RBC) Count 2.61 mill/uL (4.70-6.10); White Blood Cell (WBC) Count 23.8 thou/uL (4.8-10.8)
[2020-11-13 05:05] LABS: ALT (SGPT) 124 U/L (8-55); AST (SGOT) 21 U/L (5-34); Albumin 2.4 g/dL (3.4-4.8); Alkaline Phosphatase 118 U/L (40-110); Anion Gap 16 mmol/L (10-20); BUN (Urea Nitrogen) 75 mg/dL (8.4-25.7); Bilirubin, Total 0.5 mg/dL (0.2-1.2); Calc. Creatinine Clearance 32 mL/min (70-130); Calcium 8.2 mg/dL (7.8-10.44); Carbon Dioxide 28 mmol/L (23-31); Chloride 96 mmol/L (98-107); Globulin 3.6 g/dL (2.4-3.5); Glucose 417 mg/dL (80-115); Potassium 3.8 mmol/L (3.5-5.1); Sodium 136 mmol/L (136-145)
[2020-11-13 05:13] LABS: Band 5 % (5-11); Lymphocytes 4 % (21-51); MDiff Complete? YES; Monocytes 4 % (0-10); Neutrophil 87 % (42-75); Platelet Morphology Comment Appears Adequate
[2020-11-13 08:00] LABS: Actual Bicarbonate (HCO3a) 29.1 mEq/L (22-28); Base Excess (BEa) 3.9 mEq/L (-2.0 to +3.0); CO2 Tension 47.4 mmHg (35.0-45.0); Carboxyhemoglobin (COHb) 0.4 gm% (0.0-3.0); Hemoglobin (Hb) 8.2 g/dL (14.0-18.0); O2 Tension (PaO2), arterial 94.1 mmHg (> 70.0); Potassium - ABG Lab 3.85 mmol/L (3.70-5.30); pH, Arterial 7.41 (7.35-7.45)
[2020-11-13 08:02] LABS: Puncture Site LBA
[2020-11-13] MEDS: Carvedilol 6.25 MG TAB PO SCH ×4 (08:26→21:48)
[2020-11-13] MEDS: Aspirin 81 mg Enteric Coated Tablet PO SCH (08:26)
[2020-11-13] MEDS: Pantoprazole 40 MG VIAL IVP SCH ×2 (08:27→20:52)
[2020-11-13] MEDS: Enoxaparin Sodium 30 MG/0.3 ML SYRINGE SC SCH (08:27)
[2020-11-13] MEDS: methylPREDNISolone Sod Succ 40 MG VIAL IVP SCH (08:27)
[2020-11-13] MEDS: Saccharomyces boulardii 250 MG CAP PO SCH (08:27)
[2020-11-13] MEDS: Fish Oil 1,000 MG CAP PO SCH (08:27)
[2020-11-13] MEDS: MEROPENEM 1 GM/50 ML 1 GM in Premix Bag 1 BAG IVPB SCH ×2 (08:35→20:49)
[2020-11-13] MEDS ORDERED: Heparin 10,000 UNITS/ 10 ML VIAL ONE (09:11)
[2020-11-13] MEDS: Lantus 1000 UNITS/10 ML VIAL SC SCH ×2 (09:19→20:53)
[2020-11-13] MEDS: Iron, Sodium Ferric Gluconate 125 MG in Sodium Chloride 0.9% 100 ML IVPB SCH (12:01)
[2020-11-13 15:30] LABS: Vancomycin, Random 19.3 ug/mL (See Comment)
[2020-11-14] MEDS: HumaLOG 300 UNITS/3 ML VIAL SC PRN ×4 (00:23→13:46)
[2020-11-14] MEDS: Propofol 1,000 MG/100 ML VIAL IV PRN ×4 (00:26→20:24)
[2020-11-14] MEDS: GUAIFENESIN SF SOLN 200 MG/10 ML UDCUP PO SCH ×6 (03:28→23:39)
[2020-11-14 04:31] LABS: Anion Gap 13 mmol/L (10-20); BUN (Urea Nitrogen) 42 mg/dL (8.4-25.7); Calc. Creatinine Clearance 47 mL/min (70-130); Calcium 8.2 mg/dL (7.8-10.44); Carbon Dioxide 31 mmol/L (23-31); Chloride 97 mmol/L (98-107); Glucose 258 mg/dL (80-115); Potassium 3.9 mmol/L (3.5-5.1); Sodium 137 mmol/L (136-145)
[2020-11-14 04:34] LABS: Band 15 % (5-11); Lymphocytes 12 % (21-51); MDiff Complete? YES; Mean Corpuscular HGB CONC 32.5 g/dL (32.0-36.0); Mean Corpuscular Hemoglobin 31.1 pg (27.0-31.0); Mean Corpuscular Volume 95.6 fL (78.0-98.0); Mean Platelet Volume 8.8 fL (7.4-10.4); Metamyelocyte 1 % (0-0); Monocytes 2 % (0-10); Neutrophil 70 % (42-75); Nucleated RBC 1 % (0); Platelet Count 247 thou/uL (130-400); Platelet Morphology Comment Appears Adequate; Red Blood Cell (RBC) Count 2.56 mill/uL (4.70-6.10); White Blood Cell (WBC) Count 22.1 thou/uL (4.8-10.8)
[2020-11-14] MEDS: Saccharomyces boulardii 250 MG CAP PO SCH (08:32)
[2020-11-14] MEDS: methylPREDNISolone Sod Succ 40 MG VIAL IVP SCH (08:32)
[2020-11-14] MEDS: Fish Oil 1,000 MG CAP PO SCH (08:32)
[2020-11-14] MEDS: Aspirin 81 mg Enteric Coated Tablet PO SCH (08:32)
[2020-11-14] MEDS: Pantoprazole 40 MG VIAL IVP SCH ×2 (08:33→20:23)
[2020-11-14] MEDS: Enoxaparin Sodium 30 MG/0.3 ML SYRINGE SC SCH (08:33)
[2020-11-14] MEDS: Carvedilol 6.25 MG TAB PO SCH ×3 (08:33→20:22)
[2020-11-14] MEDS: Lantus 1000 UNITS/10 ML VIAL SC SCH ×2 (08:34→20:23)
[2020-11-14] MEDS: MEROPENEM 1 GM/50 ML 1 GM in Premix Bag 1 BAG IVPB SCH ×2 (09:05→20:24)
[2020-11-14] MEDS: Iron, Sodium Ferric Gluconate 125 MG in Sodium Chloride 0.9% 100 ML IVPB SCH (10:27)
[2020-11-14 14:27] LABS: Vancomycin, Random 19.2 ug/mL (See Comment)
[2020-11-14] MEDS ORDERED: Insulin Glargine 50 UNITS in Pre-Filled Syringe 1 EACH SC SCH (21:00)
[2020-11-15] MEDS: GUAIFENESIN SF SOLN 200 MG/10 ML UDCUP PO SCH ×3 (02:52→09:45)
[2020-11-15 03:33] LABS: Hemoglobin 8.2 g/dL (14.0-18.0); Mean Corpuscular HGB CONC 32.3 g/dL (32.0-36.0); Mean Corpuscular Hemoglobin 30.3 pg (27.0-31.0); Mean Corpuscular Volume 93.7 fL (78.0-98.0); Mean Platelet Volume 8.9 fL (7.4-10.4); Platelet Count 271 thou/uL (130-400); RBC Distribution Width 18.7 % (11.5-14.5); White Blood Cell (WBC) Count 21.2 thou/uL (4.8-10.8)
[2020-11-15 03:44] LABS: Anion Gap 18 mmol/L (10-20); BUN (Urea Nitrogen) 70 mg/dL (8.4-25.7); Calc. Creatinine Clearance 34 mL/min (70-130); Calcium 8.1 mg/dL (7.8-10.44); Carbon Dioxide 27 mmol/L (23-31); Chloride 95 mmol/L (98-107); Glucose 327 mg/dL (80-115); Potassium 4.3 mmol/L (3.5-5.1); Sodium 136 mmol/L (136-145)
[2020-11-15 03:56] LABS: Lymphocytes 2 % (21-51); MDiff Complete? YES; Metamyelocyte 1 % (0-0); Monocytes 3 % (0-10); Neutrophil 94 % (42-75); Platelet Morphology Comment Appears Adequate
[2020-11-15] MEDS: HumaLOG 300 UNITS/3 ML VIAL SC PRN ×2 (05:56→09:29)
[2020-11-15] MEDS: Propofol 1,000 MG/100 ML VIAL IV PRN (05:57)
[2020-11-15] MEDS: Iron, Sodium Ferric Gluconate 125 MG in Sodium Chloride 0.9% 100 ML IVPB SCH (09:00)
[2020-11-15] MEDS: Fish Oil 1,000 MG CAP PO SCH (09:00)
[2020-11-15] MEDS: Aspirin 81 mg Enteric Coated Tablet PO SCH (09:26)
[2020-11-15] MEDS: Enoxaparin Sodium 30 MG/0.3 ML SYRINGE SC SCH (09:26)
[2020-11-15] MEDS: Carvedilol 6.25 MG TAB PO SCH ×3 (09:26→21:22)
[2020-11-15] MEDS: Saccharomyces boulardii 250 MG CAP PO SCH (09:26)
[2020-11-15] MEDS: methylPREDNISolone Sod Succ 40 MG VIAL IVP SCH (09:27)
[2020-11-15] MEDS: Pantoprazole 40 MG VIAL IVP SCH ×2 (09:27→21:22)
[2020-11-15] MEDS: Lantus 1000 UNITS/10 ML VIAL SC SCH ×2 (09:28→21:23)
[2020-11-15 09:50] LABS: Vancomycin, Random 17.1 ug/mL (See Comment)
[2020-11-15 10:04] LABS: SARS-CoV-2 NAA Rapid Test Not Detected (NotDetected)
[2020-11-15] MEDS: MEROPENEM 1 GM/50 ML 1 GM in Premix Bag 1 BAG IVPB SCH ×2 (11:39→21:22)
[2020-11-15] MEDS ORDERED: Vancomycin HCl 750 MG in Sodium Chloride 0.9% 250 ML 250 ML IVPB SCH (12:00)
[2020-11-15] MEDS ORDERED: Amlodipine 5 MG TAB PO SCH (12:30)
[2020-11-15] MEDS ORDERED: Dextrose 50% Abboject 50 ML SYRINGE ONE (16:57)
[2020-11-15] MEDS: Dextrose 50% Abboject 50 ML SYRINGE SLOW IVP PRN (21:23)
[2020-11-16] MEDS: Dextrose 50% Abboject 50 ML SYRINGE SLOW IVP PRN (03:33)
[2020-11-16 04:45] LABS: Anion Gap 16 mmol/L (10-20); BUN (Urea Nitrogen) 82 mg/dL (8.4-25.7); Band 9 % (5-11); Calc. Creatinine Clearance 34 mL/min (70-130); Calcium 8.1 mg/dL (7.8-10.44); Carbon Dioxide 29 mmol/L (23-31); Chloride 95 mmol/L (98-107); Hemoglobin 8.5 g/dL (14.0-18.0); Hypochromia SLIGHT = 6-15 cells (100X) (0-5/hpf); Lymphocytes 6 % (21-51); MDiff Complete? YES; Mean Corpuscular HGB CONC 32.5 g/dL (32.0-36.0); Mean Corpuscular Volume 95.2 fL (78.0-98.0); Mean Platelet Volume 9.1 fL (7.4-10.4); Neutrophil 85 % (42-75); Platelet Count 279 thou/uL (130-400); Platelet Morphology Comment Appears Adequate; Potassium 4.1 mmol/L (3.5-5.1); RBC Distribution Width 19.2 % (11.5-14.5); Red Blood Cell (RBC) Count 2.76 mill/uL (4.70-6.10); Sodium 136 mmol/L (136-145); White Blood Cell (WBC) Count 25.5 thou/uL (4.8-10.8)
[2020-11-16 05:01] LABS: Glucose 33 mg/dL (80-115)
[2020-11-16] MEDS ORDERED: Heparin 10,000 UNITS/ 10 ML VIAL ONE (08:51)
[2020-11-16] MEDS: Aspirin 81 mg Enteric Coated Tablet PO SCH (08:52)
[2020-11-16] MEDS: Fish Oil 1,000 MG CAP PO SCH (08:52)
[2020-11-16] MEDS: Amiodarone 200 MG TAB PER TUBE SCH ×2 (08:52→20:44)
[2020-11-16] MEDS: Enoxaparin Sodium 100 MG/ML SYRINGE SC SCH (08:53)
[2020-11-16] MEDS: Amlodipine 5 MG TAB PO SCH (08:53)
[2020-11-16] MEDS: Carvedilol 6.25 MG TAB PO SCH ×3 (08:53→20:45)
[2020-11-16] MEDS: methylPREDNISolone Sod Succ 40 MG VIAL IVP SCH (08:54)
[2020-11-16] MEDS: Pantoprazole 40 MG VIAL IVP SCH ×2 (08:54→20:48)
[2020-11-16] MEDS: Saccharomyces boulardii 250 MG CAP PO SCH (08:58)
[2020-11-16] MEDS: Albumin 25% 25 GM/100 ML BOT IVPB SCH (09:01)
[2020-11-16 09:51] LABS: Vancomycin, Random 20.9 ug/mL (See Comment)
[2020-11-16] MEDS: MEROPENEM 1 GM/50 ML 1 GM in Premix Bag 1 BAG IVPB SCH ×2 (12:53→20:46)
[2020-11-16] MEDS: Iron, Sodium Ferric Gluconate 125 MG in Sodium Chloride 0.9% 100 ML IVPB SCH (12:54)
[2020-11-16] MEDS: HumaLOG 300 UNITS/3 ML VIAL SC PRN ×2 (17:38→21:05)
[2020-11-17 05:21] LABS: Anion Gap 13 mmol/L (10-20); BUN (Urea Nitrogen) 48 mg/dL (8.4-25.7); Calc. Creatinine Clearance 43 mL/min (70-130); Calcium 8.1 mg/dL (7.8-10.44); Carbon Dioxide 28 mmol/L (23-31); Chloride 98 mmol/L (98-107); Glucose 177 mg/dL (80-115); Potassium 4.2 mmol/L (3.5-5.1); Sodium 135 mmol/L (136-145)
[2020-11-17 05:30] LABS: Hemoglobin 7.6 g/dL (14.0-18.0); Lymphocytes 2 % (21-51); MDiff Complete? YES; Mean Corpuscular HGB CONC 31.7 g/dL (32.0-36.0); Mean Corpuscular Hemoglobin 30.1 pg (27.0-31.0); Mean Corpuscular Volume 94.9 fL (78.0-98.0); Mean Platelet Volume 8.8 fL (7.4-10.4); Monocytes 2 % (0-10); Neutrophil 96 % (42-75); Nucleated RBC 1 % (0); Platelet Count 262 thou/uL (130-400); Platelet Morphology Comment Appears Adequate; RBC Distribution Width 18.2 % (11.5-14.5); Red Blood Cell (RBC) Count 2.52 mill/uL (4.70-6.10); White Blood Cell (WBC) Count 24.4 thou/uL (4.8-10.8)
[2020-11-17] MEDS ORDERED: Lidocaine 1% (PF) 30 ML VIAL ONE (08:11)
[2020-11-17] MEDS: Aspirin Chewable 81 MG TAB PO SCH (08:58)
[2020-11-17] MEDS: Amiodarone 200 MG TAB PER TUBE SCH ×2 (08:58→20:57)
[2020-11-17] MEDS: Saccharomyces boulardii 250 MG CAP PO SCH (08:58)
[2020-11-17] MEDS: Enoxaparin Sodium 100 MG/ML SYRINGE SC SCH (08:59)
[2020-11-17] MEDS: Fish Oil 1,000 MG CAP PO SCH (08:59)
[2020-11-17] MEDS: Pantoprazole 40 MG VIAL IVP SCH ×2 (08:59→20:56)
[2020-11-17] MEDS: Carvedilol 6.25 MG TAB PO SCH ×3 (08:59→20:56)
[2020-11-17] MEDS: Amlodipine 5 MG TAB PO SCH (08:59)
[2020-11-17] MEDS ORDERED: Sulfameth/Trimethoprim DS 800-160mg TAB PO SCH (09:00)
[2020-11-17] MEDS: MEROPENEM 1 GM/50 ML 1 GM in Premix Bag 1 BAG IVPB SCH ×2 (09:00→20:56)
[2020-11-17] MEDS: methylPREDNISolone Sod Succ 40 MG VIAL IVP SCH (09:00)
[2020-11-17 09:18] LABS: Vancomycin, Random 16.1 ug/mL (See Comment)
[2020-11-17 09:21] LABS: Complement-C4 30.2 mg/dL (15-53)
[2020-11-17] MEDS: Albumin 25% 25 GM/100 ML BOT IVPB SCH (09:27)
[2020-11-17] MEDS: EPOETIN ALFA-EPBX (ESRD) 10,000 UNIT/ML VIAL SC SCH (11:35)
[2020-11-17 12:55] VITALS: BMI 33.0
[2020-11-17 14:01] LABS: ANA Symphony (Qualitative) Negative (Negative); ANA Symphony (Quantitative) 0.2 Ratio (< 0.7 Negative); EliA Vaculitis New Method **** NEW METHOD ****; Glomerular Basemt Membrane Ab Less than 1.9 EliAU/mL (<7 Negative); dsDNA IgG Antibody 0.6 IU/mL (<10 Negative)
[2020-11-17] MEDS: HumaLOG 300 UNITS/3 ML VIAL SC PRN ×2 (16:35→22:39)
[2020-11-17] MEDS: Sulfameth/Trimethoprim SS 400-80MG TAB PO SCH (20:56)
[2020-11-17] MEDS ORDERED: Minocycline HCl 50 MG CAP PER TUBE SCH (21:00)
[2020-11-18 05:43] LABS: #Lymphocytes 1.2 thou/uL (1.20-3.40); #Monocytes 0.9 thou/uL (0.11-0.59); #Neutrophils 14.6 thou/uL (1.40-6.50); %Eosinophils 0.1 % (0.0-10.0); %Monocytes 5.1 % (0.0-10.0); %Neutrophils 87.7 % (42.0-75.0); Hemoglobin 7.4 g/dL (14.0-18.0); Mean Corpuscular HGB CONC 32.4 g/dL (32.0-36.0); Mean Corpuscular Volume 95.6 fL (78.0-98.0); Mean Platelet Volume 8.9 fL (7.4-10.4); Platelet Count 273 thou/uL (130-400); RBC Distribution Width 17.6 % (11.5-14.5); Red Blood Cell (RBC) Count 2.39 mill/uL (4.70-6.10); White Blood Cell (WBC) Count 16.6 thou/uL (4.8-10.8)
[2020-11-18] MEDS: HumaLOG 300 UNITS/3 ML VIAL SC PRN ×3 (05:45→21:22)
[2020-11-18 06:13] LABS: Anion Gap 21 mmol/L (10-20); BUN (Urea Nitrogen) 87 mg/dL (8.4-25.7); Calc. Creatinine Clearance 26 mL/min (70-130); Calcium 8.3 mg/dL (7.8-10.44); Carbon Dioxide 24 mmol/L (23-31); Chloride 98 mmol/L (98-107); Glucose 266 mg/dL (80-115); Potassium 5.6 mmol/L (3.5-5.1); Sodium 137 mmol/L (136-145)
[2020-11-18] MEDS ORDERED: Heparin 10,000 UNITS/ 10 ML VIAL ONE (09:14)
[2020-11-18 11:15] LABS: Vancomycin, Random 12.1 ug/mL (See Comment)
[2020-11-18] MEDS: Carvedilol 6.25 MG TAB PO SCH ×3 (13:20→21:08)
[2020-11-18] MEDS: Pantoprazole 40 MG VIAL IVP SCH ×2 (13:42→21:08)
[2020-11-18] MEDS: methylPREDNISolone Sod Succ 40 MG VIAL IVP SCH (13:47)
[2020-11-18] MEDS: MEROPENEM 1 GM/50 ML 1 GM in Premix Bag 1 BAG IVPB SCH ×2 (13:49→21:08)
[2020-11-18] MEDS: Amiodarone 200 MG TAB PER TUBE SCH ×2 (13:50→21:08)
[2020-11-18] MEDS: Saccharomyces boulardii 250 MG CAP PO SCH (13:51)
[2020-11-18] MEDS: Fish Oil 1,000 MG CAP PO SCH (13:51)
[2020-11-18] MEDS: Aspirin Chewable 81 MG TAB PO SCH (13:51)
[2020-11-18] MEDS: Sulfameth/Trimethoprim SS 400-80MG TAB PO SCH ×2 (13:51→22:27)
[2020-11-18] MEDS: Enoxaparin Sodium 100 MG/ML SYRINGE SC SCH (13:55)
[2020-11-19 05:15] LABS: #Lymphocytes 1.1 thou/uL (1.20-3.40); #Monocytes 0.7 thou/uL (0.11-0.59); #Neutrophils 13.9 thou/uL (1.40-6.50); %Basophils 0.1 % (0.0-1.0); %Eosinophils 0.1 % (0.0-10.0); %Lymphocytes 7.1 % (21.0-51.0); %Monocytes 4.6 % (0.0-10.0); %Neutrophils 88.1 % (42.0-75.0); Hemoglobin 7.7 g/dL (14.0-18.0); Mean Corpuscular HGB CONC 32.1 g/dL (32.0-36.0); Mean Corpuscular Hemoglobin 30.2 pg (27.0-31.0); Mean Platelet Volume 8.9 fL (7.4-10.4); Platelet Count 311 thou/uL (130-400); Red Blood Cell (RBC) Count 2.56 mill/uL (4.70-6.10); White Blood Cell (WBC) Count 15.7 thou/uL (4.8-10.8)
[2020-11-19 05:51] LABS: Anion Gap 15 mmol/L (10-20); BUN (Urea Nitrogen) 54 mg/dL (8.4-25.7); Calc. Creatinine Clearance 33 mL/min (70-130); Carbon Dioxide 29 mmol/L (23-31); Chloride 95 mmol/L (98-107); Glucose 271 mg/dL (80-115); Potassium 4.6 mmol/L (3.5-5.1); Sodium 134 mmol/L (136-145)
[2020-11-19] MEDS: HumaLOG 300 UNITS/3 ML VIAL SC PRN ×2 (06:19→12:03)
[2020-11-19 09:21] LABS: Vancomycin, Random 12.2 ug/mL (See Comment)
[2020-11-19] MEDS: Aspirin Chewable 81 MG TAB PO SCH (10:25)
[2020-11-19] MEDS: Carvedilol 6.25 MG TAB PO SCH (10:25)
[2020-11-19] MEDS: Amiodarone 200 MG TAB PER TUBE SCH (10:25)
[2020-11-19] MEDS: Enoxaparin Sodium 100 MG/ML SYRINGE SC SCH (10:26)
[2020-11-19] MEDS: Saccharomyces boulardii 250 MG CAP PO SCH (10:26)
[2020-11-19] MEDS: Pantoprazole 40 MG VIAL IVP SCH (10:26)
[2020-11-19] MEDS: Fish Oil 1,000 MG CAP PO SCH (10:26)
[2020-11-19 11:43] VITALS: BP 125/49
[2020-11-19 12:19] VITALS: TEMP 97.7
[2020-11-21 18:12] LABS: Cytoplasmic (C-ANCA) <1:20 titer (Neg:<1:20); Myeloperoxidase AutoAbs <9.0 U/mL (0.0-9.0); Perinuclear (P-ANCA) <1:20 titer (Neg:<1:20); Proteinase-3 AutoAbs Less than 3.5 U/mL (0.0-3.5)
== END 2020-11-19 15:30 | DRG 871 ==
LOC: IMCU/EMU 18:18 → CCU 11-05 18:22
PROVIDERS: ADMIT Internal Medicine; ATTEND Internal Medicine
PROC: 5A09557 Assistance with Respiratory Ventilation, Greater than 96 Consecutive Hours, Continuous Positive Airway Pressure (ICD-10-PCS; 2020-11-01)
PROC: 30233N1 Transfusion of Nonautologous Red Blood Cells into Peripheral Vein, Percutaneous Approach (ICD-10-PCS; 2020-11-03)
PROC: 0W993ZX Drainage of Right Pleural Cavity, Percutaneous Approach, Diagnostic (ICD-10-PCS; 2020-11-05)
PROC: 0W9B00Z Drainage of Left Pleural Cavity with Drainage Device, Open Approach (ICD-10-PCS; 2020-11-05)
PROC: 0W9900Z Drainage of Right Pleural Cavity with Drainage Device, Open Approach (ICD-10-PCS; 2020-11-05)
PROC: 5A1D70Z Performance of Urinary Filtration, Intermittent, Less than 6 Hours Per Day (ICD-10-PCS; 2020-11-09)
PROC: 06HY33Z Insertion of Infusion Device into Lower Vein, Percutaneous Approach (ICD-10-PCS; 2020-11-09)
PROC: 3E043XZ Introduction of Vasopressor into Central Vein, Percutaneous Approach (ICD-10-PCS; 2020-11-09)
PROC: 5A0945A Assistance with Respiratory Ventilation, 24-96 Consecutive Hours, High Flow/Velocity Cannula (ICD-10-PCS; 2020-11-10)
PROC: 0DH67UZ Insertion of Feeding Device into Stomach, Via Natural or Artificial Opening (ICD-10-PCS; 2020-11-11)
PROC: 5A1945Z Respiratory Ventilation, 24-96 Consecutive Hours (ICD-10-PCS; principal; 2020-11-12)
PROC: 0BH18EZ Insertion of Endotracheal Airway into Trachea, Via Natural or Artificial Opening Endoscopic (ICD-10-PCS; 2020-11-12)
PROC: 0BC38ZZ Extirpation of Matter from Right Main Bronchus, Via Natural or Artificial Opening Endoscopic (ICD-10-PCS; 2020-11-15)
PROC: 0B9M8ZZ Drainage of Bilateral Lungs, Via Natural or Artificial Opening Endoscopic (ICD-10-PCS; 2020-11-15)
PROC: 0W9B3ZZ Drainage of Left Pleural Cavity, Percutaneous Approach (ICD-10-PCS; 2020-11-17)
DX: A41.02 Sepsis due to Methicillin resistant Staphylococcus aureus (principal); J96.01 Acute respiratory failure with hypoxia; I50.33 Acute on chronic diastolic (congestive) heart failure; J93.0 Spontaneous tension pneumothorax; N17.0 Acute kidney failure with tubular necrosis; J15.6 Pneumonia due to other Gram-negative bacteria; D62 Acute posthemorrhagic anemia; M86.8X7 Other osteomyelitis, ankle and foot; E87.2 Acidosis; J91.8 Pleural effusion in other conditions classified elsewhere; G93.49 Other encephalopathy; I13.0 Hypertensive heart and chronic kidney disease with heart failure and stage 1 through stage 4 chronic kidney disease, or unspecified chronic kidney disease; R04.89 Hemorrhage from other sites in respiratory passages; I48.3 Typical atrial flutter; L97.429 Non-pressure chronic ulcer of left heel and midfoot with unspecified severity; Z20.822 Contact with and (suspected) exposure to COVID-19; Z23 Encounter for immunization; E11.22 Type 2 diabetes mellitus with diabetic chronic kidney disease; I48.0 Paroxysmal atrial fibrillation; E11.51 Type 2 diabetes mellitus with diabetic peripheral angiopathy without gangrene; E11.69 Type 2 diabetes mellitus with other specified complication; E11.621 Type 2 diabetes mellitus with foot ulcer; B96.89 Other specified bacterial agents as the cause of diseases classified elsewhere; E66.01 Morbid (severe) obesity due to excess calories; E78.5 Hyperlipidemia, unspecified; I16.0 Hypertensive urgency; D63.1 Anemia in chronic kidney disease; N18.30 Chronic kidney disease, stage 3 unspecified; T50.1X5A Adverse effect of loop [high-ceiling] diuretics, initial encounter; I25.5 Ischemic cardiomyopathy; I25.10 Atherosclerotic heart disease of native coronary artery without angina pectoris; E86.0 Dehydration; E88.09 Other disorders of plasma-protein metabolism, not elsewhere classified; L89.626 Pressure-induced deep tissue damage of left heel; R65.20 Severe sepsis without septic shock; Z78.1 Physical restraint status; I44.7 Left bundle-branch block, unspecified; E11.65 Type 2 diabetes mellitus with hyperglycemia; R00.1 Bradycardia, unspecified; E87.5 Hyperkalemia; Z89.411 Acquired absence of right great toe; Z87.891 Personal history of nicotine dependence; Z68.35 Body mass index [BMI] 35.0-35.9, adult; Z89.511 Acquired absence of right leg below knee; Z95.820 Peripheral vascular angioplasty status with implants and grafts; Z87.01 Personal history of pneumonia (recurrent); Z79.82 Long term (current) use of aspirin; Z79.4 Long term (current) use of insulin; Z79.899 Other long term (current) drug therapy; Z79.52 Long term (current) use of systemic steroids
CPT/HCPCS: 31624; 36415; 36416; 36430; 36600; 70450; 71045; 71250; 80048; 80053; 80202; 81001; 82040; 82150; 82550; 82570; 82805; 82945; 83516; 83520; 83605; 83615; 83735; 83880; 83986; 84156; 84157; 84300; 84478; 84484; 84540; 85014; 85018; 85025; 85049; 85060; 86038; 86060; 86160; 86225; 86256; 86704; 86706; 86803; 86850; 86900; 86901; 87040; 87070; 87077; 87116; 87186; 87205; 87206; 87340; 87449; 87497; 88112; 89051; 90471; 90732; 90935; 93005; 93010; 93970; 94002; 94003; 94640; 94660; C9113; G0009; G0257; J0360; J0692; J0878; J1642; J1644; J1650; J1815; J1940; J2001; J2020; J2185; J2248; J2270; J2358; J2704; J2916; J2920; J2997; J3370; J3490; J7050; J7620; P9016; P9047; Q5105; U0002; U0005

== ENCOUNTER 2021-01-18 | Emergency (ER) | payer MEDICARE | END 2021-01-18 22:40 | disposition home or self-care (01) ==

== ENCOUNTER 2021-03-24 18:14 | Inpatient (IN) | payer MEDICARE ==
[2021-03-24 18:59] LABS: #Eosinphils 0.1 thou/uL (0.0-0.7); #Lymphocytes 1.9 thou/uL (1.20-3.40); #Monocytes 0.8 thou/uL (0.11-0.59); #Neutrophils 18.4 thou/uL (1.40-6.50); %Basophils 0.1 % (0.0-1.0); %Eosinophils 0.5 % (0.0-10.0); %Monocytes 3.6 % (0.0-10.0); %Neutrophils 86.7 % (42.0-75.0); Hemoglobin 9.2 g/dL (14.0-18.0); Mean Corpuscular HGB CONC 32.5 g/dL (32.0-36.0); Mean Corpuscular Hemoglobin 29.7 pg (27.0-31.0); Mean Corpuscular Volume 91.2 fL (78.0-98.0); Mean Platelet Volume 7.2 fL (7.4-10.4); Platelet Count 528 thou/uL (130-400); RBC Distribution Width 15.3 % (11.5-14.5); White Blood Cell (WBC) Count 21.3 thou/uL (4.8-10.8)
[2021-03-24 19:18] LABS: ALT (SGPT) 28 U/L (8-55); AST (SGOT) 30 U/L (5-34); Alkaline Phosphatase 115 U/L (40-110); Anion Gap 16 mmol/L (10-20); BUN (Urea Nitrogen) 41 mg/dL (8.4-25.7); Bilirubin, Total 0.2 mg/dL (0.2-1.2); Calc. Creatinine Clearance 0 mL/min (70-130); Calcium 7.8 mg/dL (7.8-10.44); Carbon Dioxide 20 mmol/L (23-31); Chloride 107 mmol/L (98-107); Globulin 4.3 g/dL (2.4-3.5); Glucose 208 mg/dL (80-115); Potassium 5.3 mmol/L (3.5-5.1); Protein, Total 7.3 g/dL (5.8-8.1); Sodium 138 mmol/L (136-145)
[2021-03-24] MEDS ORDERED: Cefepime 2 GM VIAL ONE (20:20)
[2021-03-24] MEDS ORDERED: VANCOMYCIN 2 GRAM/400 ML BAG 2 GM in Premix Bag 1 BAG IVPB SCH (20:30)
[2021-03-24] MEDS ORDERED: Dextrose 50% Abboject 50 ML SYRINGE SLOW IVP PRN (22:09)
[2021-03-24] MEDS ORDERED: Dextrose 5% in Water 1,000 ML IV PRN (22:09)
[2021-03-24] MEDS ORDERED: HumaLOG 300 UNITS/3 ML VIAL SC PRN (22:09)
[2021-03-24] MEDS ORDERED: Senokot S 8.6-50 MG TAB PO PRN (22:12)
[2021-03-24] MEDS ORDERED: Ondansetron ODT 4 MG TAB PO PRN (22:12)
[2021-03-24] MEDS ORDERED: Ondansetron PF 4 MG/2 ML Vial IVP PRN (22:12)
[2021-03-24] MEDS ORDERED: Acetaminophen 650 MG Suppository PR PRN (22:12)
[2021-03-24 22:30] LABS: Hemoglobin A1c 6.5 % (4.0-6.0)
[2021-03-24] MEDS ORDERED: Meropenem 1 GM in Sodium Chloride 0.9% 100 ML IVPB SCH (22:45)
[2021-03-24] MEDS ORDERED: FLU VACC QS2021-22(65YR UP)/PF 240 MCG/0.7 ML SYRINGE IM ONE (23:45)
[2021-03-24] MEDS: Sodium Chloride 0.9% 1,000 ML IV SCH (23:55)
[2021-03-25 08:50] LABS: #Lymphocytes 2.1 thou/uL (1.20-3.40); #Neutrophils 17.9 thou/uL (1.40-6.50); %Basophils 0.2 % (0.0-1.0); %Eosinophils 0.2 % (0.0-10.0); %Lymphocytes 9.9 % (21.0-51.0); %Monocytes 4.9 % (0.0-10.0); %Neutrophils 84.9 % (42.0-75.0); Hemoglobin 7.9 g/dL (14.0-18.0); Mean Corpuscular HGB CONC 32.5 g/dL (32.0-36.0); Mean Corpuscular Hemoglobin 29.4 pg (27.0-31.0); Mean Corpuscular Volume 90.3 fL (78.0-98.0); Mean Platelet Volume 7.1 fL (7.4-10.4); Platelet Count 574 thou/uL (130-400); RBC Distribution Width 15.4 % (11.5-14.5); Red Blood Cell (RBC) Count 2.67 mill/uL (4.70-6.10); White Blood Cell (WBC) Count 21.1 thou/uL (4.8-10.8)
[2021-03-25] MEDS ORDERED: FLU VACC QS2021-22(65YR UP)/PF 240 MCG/0.7 ML SYRINGE IM ONE (09:00)
[2021-03-25] MEDS ORDERED: VANCOMYCIN 1.25 GM/250 ML BAG 1.25 GM in Premix Bag 1 BAG IVPB SCH (09:00)
[2021-03-25 09:34] LABS: Phosphorus 3.9 mg/dL (2.3-4.7)
[2021-03-25 09:38] LABS: Anion Gap 15 mmol/L (10-20); BUN (Urea Nitrogen) 41 mg/dL (8.4-25.7); Calc. Creatinine Clearance 33 mL/min (70-130); Calcium 7.9 mg/dL (7.8-10.44); Carbon Dioxide 21 mmol/L (23-31); Chloride 109 mmol/L (98-107); Glucose 128 mg/dL (80-115); Magnesium 1.9 mg/dL (1.6-2.6); Potassium 5.1 mmol/L (3.5-5.1); Sodium 140 mmol/L (136-145)
[2021-03-25] MEDS ORDERED: Meropenem 1 GM in Sodium Chloride 0.9% 100 ML IVPB SCH (12:00)
[2021-03-25 12:10] LABS: SARS-CoV-2 PCR by NAA Not Detected (NotDetected)
[2021-03-25] MEDS: Sodium Chloride 0.9% 1,000 ML IV SCH (18:44)
[2021-03-25] MEDS: Vancomycin 1 GM in Premix Bag 1 BAG IVPB SCH (20:30)
[2021-03-25] MEDS: MEROPENEM 1 GM/50 ML 1 GM in Premix Bag 1 BAG IVPB SCH (22:58)
[2021-03-25] MEDS: Acetaminophen 325 MG TAB PO PRN (22:59)
[2021-03-26 06:55] LABS: #Eosinphils 0.2 thou/uL (0.0-0.7); #Lymphocytes 2.1 thou/uL (1.20-3.40); #Monocytes 1.2 thou/uL (0.11-0.59); #Neutrophils 15.4 thou/uL (1.40-6.50); %Basophils 0.1 % (0.0-1.0); %Eosinophils 0.8 % (0.0-10.0); %Lymphocytes 11.1 % (21.0-51.0); %Monocytes 6.2 % (0.0-10.0); %Neutrophils 81.8 % (42.0-75.0); Hemoglobin 7.6 g/dL (14.0-18.0); Mean Corpuscular HGB CONC 32.8 g/dL (32.0-36.0); Mean Corpuscular Hemoglobin 29.9 pg (27.0-31.0); Mean Platelet Volume 6.8 fL (7.4-10.4); Platelet Count 539 thou/uL (130-400); RBC Distribution Width 14.9 % (11.5-14.5); Red Blood Cell (RBC) Count 2.56 mill/uL (4.70-6.10); White Blood Cell (WBC) Count 18.8 thou/uL (4.8-10.8)
[2021-03-26 07:11] LABS: Anion Gap 15 mmol/L (10-20); BUN (Urea Nitrogen) 34 mg/dL (8.4-25.7); Calc. Creatinine Clearance 37 mL/min (70-130); Carbon Dioxide 18 mmol/L (23-31); Chloride 111 mmol/L (98-107); Glucose 110 mg/dL (80-115); Potassium 4.9 mmol/L (3.5-5.1); Sodium 139 mmol/L (136-145)
[2021-03-26] MEDS: Amlodipine 10 MG TAB PO SCH (08:50)
[2021-03-26] MEDS: Ferrous Sulfate 325 MG TAB PO SCH (08:50)
[2021-03-26] MEDS: Sodium Bicarbonate Tab 325 MG TAB PO SCH ×2 (08:50→20:13)
[2021-03-26] MEDS: Multivitamin W/ Minerals 1 TAB PO SCH (08:52)
[2021-03-26] MEDS: Clopidogrel Bisulfate 75 MG TAB PO SCH (08:52)
[2021-03-26] MEDS: Atorvastatin Calcium 40 MG TAB PO SCH (08:52)
[2021-03-26] MEDS: Magnesium Oxide 400 MG TAB PO SCH (08:52)
[2021-03-26] MEDS: MEROPENEM 1 GM/50 ML 1 GM in Premix Bag 1 BAG IVPB SCH (11:23)
[2021-03-26] MEDS: Vancomycin 1 GM in Premix Bag 1 BAG IVPB SCH (20:13)
[2021-03-26] MEDS: Acetaminophen 325 MG TAB PO PRN (20:20)
[2021-03-27] MEDS: MEROPENEM 1 GM/50 ML 1 GM in Premix Bag 1 BAG IVPB SCH ×2 (00:47→11:21)
[2021-03-27] MEDS: Ferrous Sulfate 325 MG TAB PO SCH (07:51)
[2021-03-27] MEDS: Atorvastatin Calcium 40 MG TAB PO SCH (07:51)
[2021-03-27] MEDS: Multivitamin W/ Minerals 1 TAB PO SCH (07:51)
[2021-03-27] MEDS: Sodium Bicarbonate Tab 325 MG TAB PO SCH ×2 (07:51→20:08)
[2021-03-27] MEDS: Magnesium Oxide 400 MG TAB PO SCH (07:52)
[2021-03-27] MEDS: Clopidogrel Bisulfate 75 MG TAB PO SCH (07:52)
[2021-03-27] MEDS: Amlodipine 10 MG TAB PO SCH (07:52)
[2021-03-27] MEDS: Acetaminophen 325 MG TAB PO PRN (16:19)
[2021-03-27] MEDS: Vancomycin 1 GM in Premix Bag 1 BAG IVPB SCH (20:08)
[2021-03-28] MEDS: MEROPENEM 1 GM/50 ML 1 GM in Premix Bag 1 BAG IVPB SCH ×2 (00:23→11:43)
[2021-03-28] MEDS: Ferrous Sulfate 325 MG TAB PO SCH (08:09)
[2021-03-28] MEDS: Multivitamin W/ Minerals 1 TAB PO SCH (08:09)
[2021-03-28] MEDS: Sodium Bicarbonate Tab 325 MG TAB PO SCH ×2 (08:09→20:26)
[2021-03-28] MEDS: Magnesium Oxide 400 MG TAB PO SCH (08:09)
[2021-03-28] MEDS: Amlodipine 10 MG TAB PO SCH (08:09)
[2021-03-28] MEDS: Clopidogrel Bisulfate 75 MG TAB PO SCH (08:09)
[2021-03-28] MEDS: Atorvastatin Calcium 40 MG TAB PO SCH (08:10)
[2021-03-28 09:04] LABS: #Eosinphils 0.1 thou/uL (0.0-0.7); #Lymphocytes 1.9 thou/uL (1.20-3.40); #Monocytes 0.9 thou/uL (0.11-0.59); #Neutrophils 10.9 thou/uL (1.40-6.50); %Basophils 0.3 % (0.0-1.0); %Lymphocytes 13.9 % (21.0-51.0); %Monocytes 6.1 % (0.0-10.0); %Neutrophils 78.7 % (42.0-75.0); Hemoglobin 8.1 g/dL (14.0-18.0); Mean Corpuscular HGB CONC 32.2 g/dL (32.0-36.0); Mean Corpuscular Hemoglobin 28.9 pg (27.0-31.0); Mean Corpuscular Volume 89.9 fL (78.0-98.0); Mean Platelet Volume 7.3 fL (7.4-10.4); Platelet Count 665 thou/uL (130-400); RBC Distribution Width 14.8 % (11.5-14.5); Red Blood Cell (RBC) Count 2.81 mill/uL (4.70-6.10); White Blood Cell (WBC) Count 13.8 thou/uL (4.8-10.8)
[2021-03-28 09:31] LABS: Anion Gap 15 mmol/L (10-20); BUN (Urea Nitrogen) 48 mg/dL (8.4-25.7); Calc. Creatinine Clearance 44 mL/min (70-130); Calcium 8.1 mg/dL (7.8-10.44); Carbon Dioxide 19 mmol/L (23-31); Chloride 110 mmol/L (98-107); Glucose 97 mg/dL (80-115); Potassium 5.5 mmol/L (3.5-5.1); Sodium 138 mmol/L (136-145)
[2021-03-28] MEDS: Vancomycin 1 GM in Premix Bag 1 BAG IVPB SCH (20:26)
[2021-03-28 22:47] LABS: Vancomycin, Trough 45.1 ug/mL
[2021-03-29] MEDS: Acetaminophen 325 MG TAB PO PRN (04:20)
[2021-03-29 07:43] LABS: Anion Gap 15 mmol/L (10-20); BUN (Urea Nitrogen) 45 mg/dL (8.4-25.7); Calc. Creatinine Clearance 42 mL/min (70-130); Calcium 7.8 mg/dL (7.8-10.44); Carbon Dioxide 19 mmol/L (23-31); Chloride 111 mmol/L (98-107); Glucose 104 mg/dL (80-115); Sodium 140 mmol/L (136-145)
[2021-03-29] MEDS: Amlodipine 10 MG TAB PO SCH (08:45)
[2021-03-29] MEDS: Clopidogrel Bisulfate 75 MG TAB PO SCH (08:46)
[2021-03-29] MEDS: Atorvastatin Calcium 40 MG TAB PO SCH (08:46)
[2021-03-29] MEDS: Multivitamin W/ Minerals 1 TAB PO SCH (08:46)
[2021-03-29] MEDS: Magnesium Oxide 400 MG TAB PO SCH (08:46)
[2021-03-29] MEDS: Ferrous Sulfate 325 MG TAB PO SCH (08:46)
[2021-03-29] MEDS: Sodium Bicarbonate Tab 325 MG TAB PO SCH ×2 (08:46→21:18)
[2021-03-29] MEDS: MEROPENEM 1 GM/50 ML 1 GM in Premix Bag 1 BAG IVPB SCH ×2 (11:45)
[2021-03-29] MEDS: metroNIDAZOLE 500 MG TAB PO SCH ×2 (14:35→21:18)
[2021-03-29 20:43] LABS: Vancomycin, Trough 23.6 ug/mL
[2021-03-29] MEDS: Linezolid 600 MG in Premix Bag 1 BAG IVPB SCH (21:18)
[2021-03-30 07:14] LABS: #Basophils 0.1 thou/uL (0.0-0.2); #Eosinphils 0.1 thou/uL (0.0-0.7); #Lymphocytes 2.5 thou/uL (1.20-3.40); #Monocytes 0.7 thou/uL (0.11-0.59); #Neutrophils 10.5 thou/uL (1.40-6.50); %Basophils 0.4 % (0.0-1.0); %Eosinophils 0.7 % (0.0-10.0); %Monocytes 4.9 % (0.0-10.0); Hemoglobin 8.1 g/dL (14.0-18.0); Mean Corpuscular HGB CONC 33.2 g/dL (32.0-36.0); Mean Corpuscular Hemoglobin 30.1 pg (27.0-31.0); Mean Corpuscular Volume 90.7 fL (78.0-98.0); Platelet Count 653 thou/uL (130-400); White Blood Cell (WBC) Count 13.8 thou/uL (4.8-10.8)
[2021-03-30 07:27] LABS: Anion Gap 15 mmol/L (10-20); BUN (Urea Nitrogen) 48 mg/dL (8.4-25.7); Calc. Creatinine Clearance 44 mL/min (70-130); Carbon Dioxide 19 mmol/L (23-31); Chloride 110 mmol/L (98-107); Glucose 114 mg/dL (80-115); Potassium 5.1 mmol/L (3.5-5.1); Sodium 139 mmol/L (136-145)
[2021-03-30] MEDS: Linezolid 600 MG in Premix Bag 1 BAG IVPB SCH ×2 (09:29→20:28)
[2021-03-30] MEDS: Atorvastatin Calcium 40 MG TAB PO SCH (09:30)
[2021-03-30] MEDS: Amlodipine 10 MG TAB PO SCH (09:30)
[2021-03-30] MEDS: traMADol HCl 50 MG TAB PO PRN (09:31)
[2021-03-30] MEDS: Magnesium Oxide 400 MG TAB PO SCH (09:33)
[2021-03-30] MEDS: Multivitamin W/ Minerals 1 TAB PO SCH (09:33)
[2021-03-30] MEDS: Clopidogrel Bisulfate 75 MG TAB PO SCH (09:33)
[2021-03-30] MEDS: Sodium Bicarbonate Tab 325 MG TAB PO SCH ×2 (09:33→20:29)
[2021-03-30] MEDS: Ferrous Sulfate 325 MG TAB PO SCH (09:33)
[2021-03-30] MEDS: metroNIDAZOLE 500 MG TAB PO SCH ×3 (09:33→20:29)
[2021-03-31 08:57] LABS: #Eosinphils 0.1 thou/uL (0.0-0.7); #Lymphocytes 2.4 thou/uL (1.20-3.40); #Monocytes 0.6 thou/uL (0.11-0.59); #Neutrophils 11.3 thou/uL (1.40-6.50); %Basophils 0.3 % (0.0-1.0); %Eosinophils 0.6 % (0.0-10.0); %Lymphocytes 16.4 % (21.0-51.0); %Monocytes 4.4 % (0.0-10.0); %Neutrophils 78.3 % (42.0-75.0); Hemoglobin 8.5 g/dL (14.0-18.0); Mean Corpuscular HGB CONC 32.3 g/dL (32.0-36.0); Mean Corpuscular Hemoglobin 29.3 pg (27.0-31.0); Mean Corpuscular Volume 90.8 fL (78.0-98.0); Mean Platelet Volume 7.3 fL (7.4-10.4); Platelet Count 752 thou/uL (130-400); Red Blood Cell (RBC) Count 2.89 mill/uL (4.70-6.10); White Blood Cell (WBC) Count 14.5 thou/uL (4.8-10.8)
[2021-03-31] MEDS: Sodium Bicarbonate Tab 325 MG TAB PO SCH ×2 (09:02→21:16)
[2021-03-31] MEDS: metroNIDAZOLE 500 MG TAB PO SCH ×3 (09:02→21:16)
[2021-03-31] MEDS: Multivitamin W/ Minerals 1 TAB PO SCH (09:02)
[2021-03-31] MEDS: Magnesium Oxide 400 MG TAB PO SCH (09:02)
[2021-03-31] MEDS: Atorvastatin Calcium 40 MG TAB PO SCH (09:02)
[2021-03-31] MEDS: Clopidogrel Bisulfate 75 MG TAB PO SCH (09:02)
[2021-03-31] MEDS: Ferrous Sulfate 325 MG TAB PO SCH (09:03)
[2021-03-31] MEDS: Heparin 5,000 UNITS/ML VIAL SC SCH ×2 (09:03→21:17)
[2021-03-31] MEDS: Amlodipine 10 MG TAB PO SCH (09:03)
[2021-03-31] MEDS: traMADol HCl 50 MG TAB PO PRN (09:10)
[2021-03-31] MEDS: Linezolid 600 MG in Premix Bag 1 BAG IVPB SCH ×2 (09:11→21:16)
[2021-03-31] MEDS ORDERED: Furosemide 40 MG/4 ML VIAL SLOW IVP SCH (13:00)
[2021-03-31 16:06] LABS: Troponin I 0.014 ng/mL (< 0.028)
[2021-03-31] MEDS ORDERED: Furosemide 20 MG/2 ML VIAL SLOW IVP SCH (23:45)
[2021-03-31] MEDS ORDERED: Furosemide 20 MG/2 ML VIAL ONE (23:47)
[2021-04-01 04:11] LABS: #Lymphocytes 1.6 thou/uL (1.20-3.40); #Monocytes 0.7 thou/uL (0.11-0.59); #Neutrophils 14.1 thou/uL (1.40-6.50); %Basophils 0.3 % (0.0-1.0); %Eosinophils 0.2 % (0.0-10.0); %Lymphocytes 9.6 % (21.0-51.0); %Monocytes 4.4 % (0.0-10.0); %Neutrophils 85.5 % (42.0-75.0); Hemoglobin 7.5 g/dL (14.0-18.0); Mean Corpuscular HGB CONC 31.6 g/dL (32.0-36.0); Mean Corpuscular Hemoglobin 29.3 pg (27.0-31.0); Mean Corpuscular Volume 92.7 fL (78.0-98.0); Platelet Count 685 thou/uL (130-400); RBC Distribution Width 14.8 % (11.5-14.5); Red Blood Cell (RBC) Count 2.57 mill/uL (4.70-6.10); White Blood Cell (WBC) Count 16.5 thou/uL (4.8-10.8)
[2021-04-01 04:44] LABS: Anion Gap 15 mmol/L (10-20); BUN (Urea Nitrogen) 53 mg/dL (8.4-25.7); Calc. Creatinine Clearance 43 mL/min (70-130); Calcium 8.4 mg/dL (7.8-10.44); Carbon Dioxide 22 mmol/L (23-31); Chloride 109 mmol/L (98-107); Glucose 178 mg/dL (80-115); Potassium 6.1 mmol/L (3.5-5.1); Sodium 140 mmol/L (136-145)
[2021-04-01] MEDS ORDERED: Furosemide 40 MG TAB PO SCH (09:00)
[2021-04-01] MEDS ORDERED: Amlodipine 10 MG TAB PO SCH (09:00)
[2021-04-01] MEDS: Heparin 5,000 UNITS/ML VIAL SC SCH ×2 (09:19→21:12)
[2021-04-01] MEDS: Linezolid 600 MG in Premix Bag 1 BAG IVPB SCH ×2 (09:19→21:12)
[2021-04-01] MEDS: Clopidogrel Bisulfate 75 MG TAB PO SCH (09:20)
[2021-04-01] MEDS: Ferrous Sulfate 325 MG TAB PO SCH (09:20)
[2021-04-01] MEDS: Multivitamin W/ Minerals 1 TAB PO SCH (09:20)
[2021-04-01] MEDS: Magnesium Oxide 400 MG TAB PO SCH (09:20)
[2021-04-01] MEDS: Atorvastatin Calcium 40 MG TAB PO SCH (09:20)
[2021-04-01] MEDS: metroNIDAZOLE 500 MG TAB PO SCH ×3 (09:21→21:12)
[2021-04-01] MEDS: Sodium Bicarbonate Tab 325 MG TAB PO SCH ×3 (10:00→21:12)
[2021-04-01 10:30] LABS: Troponin I 0.018 ng/mL (< 0.028)
[2021-04-01] MEDS ORDERED: EPOETIN ALFA-EPBX (ESRD) 10,000 UNIT/ML VIAL SC SCH (12:15)
[2021-04-01] MEDS ORDERED: Insulin Regular 300 UNITS/3 ML VIAL IVP SCH (12:45)
[2021-04-01] MEDS ORDERED: Dextrose 50% Abboject 50 ML SYRINGE SLOW IVP SCH (12:45)
[2021-04-01 13:43] LABS: Troponin I 0.012 ng/mL (< 0.028)
[2021-04-01 13:45] LABS: Anion Gap 16 mmol/L (10-20); Calcium 8.3 mg/dL (7.8-10.44); Carbon Dioxide 21 mmol/L (23-31); Chloride 109 mmol/L (98-107); Potassium 4.7 mmol/L (3.5-5.1); Sodium 141 mmol/L (136-145)
[2021-04-01 13:52] LABS: Glucose 135 mg/dL (80-115)
[2021-04-01 13:56] LABS: Calc. Creatinine Clearance 45 mL/min (70-130)
[2021-04-01 13:57] LABS: BUN (Urea Nitrogen) 51 mg/dL (8.4-25.7)
[2021-04-02 04:34] LABS: Iron 24 ug/dL (65-175); Iron Binding Capacity, Total 89 mcg/dL (261-462)
[2021-04-02] MEDS: NIFEdipine XL 60 MG TAB PO SCH (06:25)
[2021-04-02 06:26] LABS: Hemoglobin 7.1 g/dL (14.0-18.0); Mean Corpuscular HGB CONC 31.4 g/dL (32.0-36.0); Mean Corpuscular Volume 92.4 fL (78.0-98.0); Mean Platelet Volume 6.7 fL (7.4-10.4); Platelet Count 644 thou/uL (130-400); Red Blood Cell (RBC) Count 2.43 mill/uL (4.70-6.10); White Blood Cell (WBC) Count 10.7 thou/uL (4.8-10.8)
[2021-04-02 06:47] LABS: Albumin 2.5 g/dL (3.4-4.8); Anion Gap 14 mmol/L (10-20); BUN (Urea Nitrogen) 47 mg/dL (8.4-25.7); BUN/Creatinine Ratio 23.98; Calc. Creatinine Clearance 46 mL/min (70-130); Calcium 8.2 mg/dL (7.8-10.44); Carbon Dioxide 22 mmol/L (23-31); Chloride 109 mmol/L (98-107); Glucose 97 mg/dL (80-115); Phosphorus 4.3 mg/dL (2.3-4.7); Potassium 4.2 mmol/L (3.5-5.1); Sodium 141 mmol/L (136-145)
[2021-04-02] MEDS: Linezolid 600 MG in Premix Bag 1 BAG IVPB SCH (07:59)
[2021-04-02] MEDS: Furosemide 20 MG/2 ML VIAL SLOW IVP SCH ×2 (08:00→20:33)
[2021-04-02] MEDS: metroNIDAZOLE 500 MG TAB PO SCH ×3 (08:14→20:33)
[2021-04-02] MEDS: Magnesium Oxide 400 MG TAB PO SCH (08:15)
[2021-04-02] MEDS: Atorvastatin Calcium 40 MG TAB PO SCH (08:16)
[2021-04-02] MEDS: Carvedilol 3.125 MG TAB PO SCH ×2 (08:16→16:56)
[2021-04-02] MEDS: Ferrous Sulfate 325 MG TAB PO SCH (08:16)
[2021-04-02] MEDS: Clopidogrel Bisulfate 75 MG TAB PO SCH (08:16)
[2021-04-02] MEDS: Sodium Bicarbonate Tab 325 MG TAB PO SCH ×3 (08:17→21:51)
[2021-04-02] MEDS: Multivitamin W/ Minerals 1 TAB PO SCH (08:17)
[2021-04-02] MEDS: Heparin 5,000 UNITS/ML VIAL SC SCH ×2 (08:18→20:33)
[2021-04-02] MEDS ORDERED: Iron, Sodium Ferric Gluconate 125 MG in Sodium Chloride 0.9% 100 ML IVPB SCH (09:00)
[2021-04-02] MEDS: HumaLOG 300 UNITS/3 ML VIAL SC PRN (17:08)
[2021-04-02 18:57] LABS: SARS-CoV-2 PCR by NAA Not Detected (NotDetected)
[2021-04-02] MEDS: Linezolid 600 MG TAB PO SCH (20:33)
[2021-04-03 04:16] LABS: Hemoglobin 7.5 g/dL (14.0-18.0); Mean Corpuscular Hemoglobin 29.5 pg (27.0-31.0); Mean Corpuscular Volume 92.1 fL (78.0-98.0); Mean Platelet Volume 7.1 fL (7.4-10.4); Platelet Count 637 thou/uL (130-400); RBC Distribution Width 15.1 % (11.5-14.5); Red Blood Cell (RBC) Count 2.52 mill/uL (4.70-6.10); White Blood Cell (WBC) Count 10.4 thou/uL (4.8-10.8)
[2021-04-03 04:37] LABS: Albumin 2.6 g/dL (3.4-4.8); Anion Gap 14 mmol/L (10-20); BUN (Urea Nitrogen) 49 mg/dL (8.4-25.7); Calc. Creatinine Clearance 45 mL/min (70-130); Calcium 8.6 mg/dL (7.8-10.44); Carbon Dioxide 23 mmol/L (23-31); Chloride 108 mmol/L (98-107); Glucose 128 mg/dL (80-115); Phosphorus 4.6 mg/dL (2.3-4.7); Potassium 4.1 mmol/L (3.5-5.1); Sodium 141 mmol/L (136-145)
[2021-04-03] MEDS: metroNIDAZOLE 500 MG TAB PO SCH ×3 (08:27→21:20)
[2021-04-03] MEDS: NIFEdipine XL 60 MG TAB PO SCH (08:28)
[2021-04-03] MEDS: Ferrous Sulfate 325 MG TAB PO SCH (08:28)
[2021-04-03] MEDS: Clopidogrel Bisulfate 75 MG TAB PO SCH (08:29)
[2021-04-03] MEDS: Furosemide 20 MG/2 ML VIAL SLOW IVP SCH ×2 (08:29→21:21)
[2021-04-03] MEDS: Carvedilol 3.125 MG TAB PO SCH (08:29)
[2021-04-03] MEDS: Multivitamin W/ Minerals 1 TAB PO SCH (08:29)
[2021-04-03] MEDS: Magnesium Oxide 400 MG TAB PO SCH (08:29)
[2021-04-03] MEDS: Atorvastatin Calcium 40 MG TAB PO SCH (08:29)
[2021-04-03] MEDS: Linezolid 600 MG TAB PO SCH ×2 (08:30→21:31)
[2021-04-03] MEDS: Sodium Bicarbonate Tab 325 MG TAB PO SCH ×3 (08:30→21:31)
[2021-04-03] MEDS: Heparin 5,000 UNITS/ML VIAL SC SCH ×2 (08:32→21:21)
[2021-04-03] MEDS ORDERED: NIFEdipine XL 30 MG TAB PO SCH (10:30)
[2021-04-03] MEDS ORDERED: Carvedilol 3.125 MG TAB PO SCH (10:31)
[2021-04-03] MEDS: Carvedilol 6.25 MG TAB PO SCH (16:09)
[2021-04-03] MEDS: HumaLOG 300 UNITS/3 ML VIAL SC PRN (16:40)
[2021-04-03 19:23] LABS: #Basophils 0.1 thou/uL (0.0-0.2); #Eosinphils 0.1 thou/uL (0.0-0.7); #Lymphocytes 2.2 thou/uL (1.20-3.40); #Monocytes 0.7 thou/uL (0.11-0.59); #Neutrophils 8.9 thou/uL (1.40-6.50); %Basophils 0.7 % (0.0-1.0); %Eosinophils 0.7 % (0.0-10.0); %Lymphocytes 18.2 % (21.0-51.0); %Monocytes 5.6 % (0.0-10.0); %Neutrophils 74.8 % (42.0-75.0); Hemoglobin 9.1 g/dL (14.0-18.0); Mean Corpuscular HGB CONC 33.7 g/dL (32.0-36.0); Mean Corpuscular Hemoglobin 30.9 pg (27.0-31.0); Mean Corpuscular Volume 91.7 fL (78.0-98.0); Mean Platelet Volume 6.9 fL (7.4-10.4); Platelet Count 715 thou/uL (130-400); Red Blood Cell (RBC) Count 2.94 mill/uL (4.70-6.10); White Blood Cell (WBC) Count 11.9 thou/uL (4.8-10.8)
[2021-04-03 19:45] LABS: ALT (SGPT) 14 U/L (8-55); AST (SGOT) 16 U/L (5-34); Albumin 3.1 g/dL (3.4-4.8); Alkaline Phosphatase 100 U/L (40-110); Anion Gap 18 mmol/L (10-20); BUN (Urea Nitrogen) 47 mg/dL (8.4-25.7); Bilirubin, Total 0.2 mg/dL (0.2-1.2); Calc. Creatinine Clearance 40 mL/min (70-130); Carbon Dioxide 20 mmol/L (23-31); Chloride 107 mmol/L (98-107); Globulin 5.1 g/dL (2.4-3.5); Glucose 221 mg/dL (80-115); Potassium 4.4 mmol/L (3.5-5.1); Protein, Total 8.2 g/dL (5.8-8.1); Sodium 141 mmol/L (136-145)
[2021-04-04] MEDS: NIFEdipine XL 60 MG TAB PO SCH (11:25)
[2021-04-04] MEDS: Sodium Bicarbonate Tab 325 MG TAB PO SCH ×3 (11:25→21:08)
[2021-04-04] MEDS: Atorvastatin Calcium 40 MG TAB PO SCH (11:26)
[2021-04-04] MEDS: Carvedilol 6.25 MG TAB PO SCH ×3 (11:26→20:13)
[2021-04-04] MEDS: metroNIDAZOLE 500 MG TAB PO SCH ×3 (11:26→20:14)
[2021-04-04] MEDS: Linezolid 600 MG TAB PO SCH ×2 (11:26→20:13)
[2021-04-04] MEDS: Ferrous Sulfate 325 MG TAB PO SCH (11:26)
[2021-04-04] MEDS: Clopidogrel Bisulfate 75 MG TAB PO SCH (11:26)
[2021-04-04] MEDS: Magnesium Oxide 400 MG TAB PO SCH (11:26)
[2021-04-04] MEDS: Multivitamin W/ Minerals 1 TAB PO SCH (11:26)
[2021-04-04] MEDS: Metolazone 2.5 MG TAB PO SCH (11:26)
[2021-04-04] MEDS: Furosemide 20 MG/2 ML VIAL SLOW IVP SCH (11:27)
[2021-04-04] MEDS: Heparin 5,000 UNITS/ML VIAL SC SCH ×2 (11:27→20:15)
[2021-04-04] MEDS: Furosemide 40 MG/4 ML VIAL SLOW IVP SCH (16:31)
[2021-04-05 04:38] LABS: Anion Gap 16 mmol/L (10-20); BUN (Urea Nitrogen) 46 mg/dL (8.4-25.7); Calc. Creatinine Clearance 41 mL/min (70-130); Calcium 8.1 mg/dL (7.8-10.44); Carbon Dioxide 23 mmol/L (23-31); Chloride 106 mmol/L (98-107); Glucose 116 mg/dL (80-115); Potassium 4.7 mmol/L (3.5-5.1); Sodium 140 mmol/L (136-145)
[2021-04-05] MEDS: Furosemide 40 MG/4 ML VIAL SLOW IVP SCH (05:42)
[2021-04-05] MEDS ORDERED: Furosemide 40 MG/4 ML VIAL IVP SCH (09:17)
[2021-04-05] MEDS: metroNIDAZOLE 500 MG TAB PO SCH ×3 (09:20→21:19)
[2021-04-05] MEDS: NIFEdipine XL 60 MG TAB PO SCH (09:21)
[2021-04-05] MEDS: Atorvastatin Calcium 40 MG TAB PO SCH (09:23)
[2021-04-05] MEDS: Clopidogrel Bisulfate 75 MG TAB PO SCH (09:23)
[2021-04-05] MEDS: Metolazone 2.5 MG TAB PO SCH (09:23)
[2021-04-05] MEDS: Multivitamin W/ Minerals 1 TAB PO SCH (09:23)
[2021-04-05] MEDS: Carvedilol 6.25 MG TAB PO SCH ×3 (09:23→21:20)
[2021-04-05] MEDS: Magnesium Oxide 400 MG TAB PO SCH (09:23)
[2021-04-05] MEDS: Linezolid 600 MG TAB PO SCH ×2 (09:24→21:20)
[2021-04-05] MEDS: Heparin 5,000 UNITS/ML VIAL SC SCH ×2 (09:24→21:22)
[2021-04-05] MEDS: Acetaminophen 325 MG TAB PO PRN (09:44)
[2021-04-05] MEDS: Ferrous Sulfate 325 MG TAB PO SCH (09:49)
[2021-04-05] MEDS: Sodium Bicarbonate Tab 325 MG TAB PO SCH ×3 (10:06→21:21)
[2021-04-05] MEDS: Furosemide 100 MG in Sodium Chloride 0.9% 90 ML IVPB SCH (13:20)
[2021-04-05] MEDS: HumaLOG 300 UNITS/3 ML VIAL SC PRN (17:09)
[2021-04-06 04:18] LABS: Anion Gap 19 mmol/L (10-20); BUN (Urea Nitrogen) 54 mg/dL (8.4-25.7); Calc. Creatinine Clearance 39 mL/min (70-130); Calcium 8.5 mg/dL (7.8-10.44); Carbon Dioxide 21 mmol/L (23-31); Chloride 105 mmol/L (98-107); Glucose 153 mg/dL (80-115); Potassium 4.6 mmol/L (3.5-5.1); Sodium 140 mmol/L (136-145)
[2021-04-06] MEDS: Furosemide 100 MG in Sodium Chloride 0.9% 90 ML IVPB SCH (05:03)
[2021-04-06] MEDS: Carvedilol 6.25 MG TAB PO SCH ×3 (08:41→20:49)
[2021-04-06] MEDS: Metolazone 2.5 MG TAB PO SCH (08:41)
[2021-04-06] MEDS: Ferrous Sulfate 325 MG TAB PO SCH (08:41)
[2021-04-06] MEDS: Magnesium Oxide 400 MG TAB PO SCH (08:41)
[2021-04-06] MEDS: Linezolid 600 MG TAB PO SCH (08:41)
[2021-04-06] MEDS: metroNIDAZOLE 500 MG TAB PO SCH ×3 (08:41→20:50)
[2021-04-06] MEDS: Clopidogrel Bisulfate 75 MG TAB PO SCH (08:41)
[2021-04-06] MEDS: Atorvastatin Calcium 40 MG TAB PO SCH (08:41)
[2021-04-06] MEDS: Multivitamin W/ Minerals 1 TAB PO SCH (08:42)
[2021-04-06] MEDS: NIFEdipine XL 60 MG TAB PO SCH (08:42)
[2021-04-06] MEDS: Sodium Bicarbonate Tab 325 MG TAB PO SCH (08:42)
[2021-04-06] MEDS: Heparin 5,000 UNITS/ML VIAL SC SCH (08:42)
[2021-04-06] MEDS: EPOETIN ALFA-EPBX (ESRD) 10,000 UNIT/ML VIAL SC SCH (11:28)
[2021-04-06] MEDS ORDERED: DOPamine 400 MG/D5W 250 ML 250 ML IVPB SCH (13:15)
[2021-04-06] MEDS ORDERED: Sodium Chloride 0.9% 500 ML IV SCH (13:15)
[2021-04-06] MEDS ORDERED: Vancomycin 1 GM in Premix Bag 1 BAG IVPB SCH (13:30)
[2021-04-06 13:49] LABS: #Eosinphils 0.1 thou/uL (0.0-0.7); #Lymphocytes 1.3 thou/uL (1.20-3.40); #Monocytes 0.5 thou/uL (0.11-0.59); #Neutrophils 6.9 thou/uL (1.40-6.50); %Basophils 0.4 % (0.0-1.0); %Eosinophils 0.7 % (0.0-10.0); %Lymphocytes 15.1 % (21.0-51.0); %Monocytes 5.7 % (0.0-10.0); %Neutrophils 78.1 % (42.0-75.0); Mean Corpuscular HGB CONC 32.7 g/dL (32.0-36.0); Mean Corpuscular Hemoglobin 30.1 pg (27.0-31.0); Mean Platelet Volume 6.5 fL (7.4-10.4); Platelet Count 472 thou/uL (130-400); RBC Distribution Width 14.7 % (11.5-14.5); Red Blood Cell (RBC) Count 2.33 mill/uL (4.70-6.10); White Blood Cell (WBC) Count 8.9 thou/uL (4.8-10.8)
[2021-04-06 13:55] LABS: INR-International Normal Ratio 1.6; PTT 49.8 sec (22.9-36.1); Prothrombin Time 19.3 sec (12.0-14.7)
[2021-04-06 13:56] LABS: Actual Bicarbonate (HCO3a) 24.7 mEq/L (22-28); Base Excess (BEa) 0.9 mEq/L (-2.0 to +3.0); CO2 Tension 35.1 mmHg (35.0-45.0); Hemoglobin (Hb) 6.5 g/dL (14.0-18.0); pH, Arterial 7.47 (7.35-7.45)
[2021-04-06 13:57] LABS: Calcium, Ionized (arterial) 1.11 mmol/L (1.12-1.30); Carboxyhemoglobin (COHb) 0.5 gm% (0.0-3.0); Potassium - ABG Lab 4.15 mmol/L (3.70-5.30)
[2021-04-06 14:16] LABS: Anion Gap 15 mmol/L (10-20); Calcium 8.4 mg/dL (7.8-10.44); Carbon Dioxide 25 mmol/L (23-31); Chloride 107 mmol/L (98-107); Potassium 4.3 mmol/L (3.5-5.1); Sodium 143 mmol/L (136-145)
[2021-04-06] MEDS ORDERED: Vancomycin 1.5 GRAM/300 ML BAG 1.5 GM in Premix Bag 1 BAG IVPB SCH (14:30)
[2021-04-06 14:34] LABS: Glucose 140 mg/dL (80-115)
[2021-04-06 14:37] LABS: Calc. Creatinine Clearance 37 mL/min (70-130)
[2021-04-06 14:38] LABS: BUN (Urea Nitrogen) 53 mg/dL (8.4-25.7)
[2021-04-06 15:05] LABS: Actual Bicarbonate (HCO3v) 25 mEq/L (22-28); Base Excess 1.3 mEq/L (-2.0 to +3.0); Calcium, Ionized (venous) 1.04 mmol/L (1.16-1.32); Chloride (VBG) 107 mmol/L (98-106); Hemoglobin (Hb) 6.8 g/dL (12.6-17.4); Potassium (VBG) 5.32 mmol/L (3.70-5.30); Sodium 138.8 mmol/L (133-146); pH (venous) 7.49 (7.32-7.43)
[2021-04-06 16:28] LABS: O2 Tension (PaO2), arterial 49.6 mmHg (> 70.0); Puncture Site RRA
[2021-04-06 16:29] LABS: ALV-art Gradient 298.675 mmHg (0-20)
[2021-04-06] MEDS: Furosemide 40 MG/4 ML VIAL SLOW IVP SCH (20:50)
[2021-04-07] MEDS: Furosemide 40 MG/4 ML VIAL SLOW IVP SCH ×2 (02:21→08:53)
[2021-04-07 04:07] LABS: Hemoglobin 8.3 g/dL (14.0-18.0); Mean Corpuscular HGB CONC 33.9 g/dL (32.0-36.0); Mean Corpuscular Hemoglobin 31.1 pg (27.0-31.0); Mean Corpuscular Volume 91.6 fL (78.0-98.0); Mean Platelet Volume 6.8 fL (7.4-10.4); Platelet Count 466 thou/uL (130-400); RBC Distribution Width 14.3 % (11.5-14.5); Red Blood Cell (RBC) Count 2.67 mill/uL (4.70-6.10)
[2021-04-07 04:20] LABS: Albumin 2.7 g/dL (3.4-4.8); Anion Gap 17 mmol/L (10-20); BUN (Urea Nitrogen) 56 mg/dL (8.4-25.7); CRP (Inflammatory) 20.12 mg/dL (= or < 0.5); Calc. Creatinine Clearance 35 mL/min (70-130); Calcium 8.1 mg/dL (7.8-10.44); Carbon Dioxide 24 mmol/L (23-31); Chloride 105 mmol/L (98-107); Glucose 91 mg/dL (80-115); Magnesium 2.1 mg/dL (1.6-2.6); Phosphorus 5.1 mg/dL (2.3-4.7); Potassium 4.5 mmol/L (3.5-5.1); Sodium 141 mmol/L (136-145)
[2021-04-07] MEDS: Atorvastatin Calcium 40 MG TAB PO SCH (08:53)
[2021-04-07] MEDS: Multivitamin W/ Minerals 1 TAB PO SCH (08:54)
[2021-04-07] MEDS: NIFEdipine XL 60 MG TAB PO SCH (08:54)
[2021-04-07] MEDS: Clopidogrel Bisulfate 75 MG TAB PO SCH (08:55)
[2021-04-07] MEDS: metroNIDAZOLE 500 MG TAB PO SCH ×3 (08:55→20:51)
[2021-04-07] MEDS: Magnesium Oxide 400 MG TAB PO SCH (08:56)
[2021-04-07] MEDS: Ferrous Sulfate 325 MG TAB PO SCH (08:56)
[2021-04-07] MEDS: Carvedilol 6.25 MG TAB PO SCH ×3 (08:56→20:51)
[2021-04-07] MEDS ORDERED: Furosemide 100 MG in Sodium Chloride 0.9% 100 ML IVPB SCH (09:00)
[2021-04-07] MEDS ORDERED: Metolazone 5 MG TAB PO SCH (09:00)
[2021-04-07] MEDS: Furosemide 100 MG in Sodium Chloride 0.9% 90 ML IVPB SCH ×2 (09:37→14:41)
[2021-04-07] MEDS: Amiodarone 200 MG TAB PO SCH ×2 (14:52→23:44)
[2021-04-07] MEDS ORDERED: VANCOMYCIN 1.25 GM/250 ML BAG 1.25 GM in Premix Bag 1 BAG IVPB SCH (15:00)
[2021-04-07] MEDS: HumaLOG 300 UNITS/3 ML VIAL SC PRN (21:00)
[2021-04-08] MEDS: Furosemide 100 MG in Sodium Chloride 0.9% 90 ML IVPB SCH ×3 (03:52→21:18)
[2021-04-08 05:11] LABS: Anion Gap 17 mmol/L (10-20); BUN (Urea Nitrogen) 57 mg/dL (8.4-25.7); Calc. Creatinine Clearance 32 mL/min (70-130); Carbon Dioxide 24 mmol/L (23-31); Chloride 104 mmol/L (98-107); Glucose 108 mg/dL (80-115); Potassium 4.6 mmol/L (3.5-5.1); Sodium 140 mmol/L (136-145)
[2021-04-08 05:15] LABS: Complement-C4 29.5 mg/dL (15-53)
[2021-04-08] MEDS ORDERED: Metolazone 5 MG TAB PO SCH (08:30)
[2021-04-08] MEDS: Ferrous Sulfate 325 MG TAB PO SCH (08:49)
[2021-04-08] MEDS: Amiodarone 200 MG TAB PO SCH ×3 (08:49→21:08)
[2021-04-08] MEDS: metroNIDAZOLE 500 MG TAB PO SCH ×3 (08:50→21:12)
[2021-04-08] MEDS: Atorvastatin Calcium 40 MG TAB PO SCH (08:50)
[2021-04-08] MEDS: Magnesium Oxide 400 MG TAB PO SCH (08:50)
[2021-04-08] MEDS: Clopidogrel Bisulfate 75 MG TAB PO SCH (08:50)
[2021-04-08] MEDS: Carvedilol 6.25 MG TAB PO SCH ×3 (08:50→21:03)
[2021-04-08] MEDS: Multivitamin W/ Minerals 1 TAB PO SCH (08:50)
[2021-04-08] MEDS ORDERED: Heparin 5,000 UNITS/ML VIAL SC SCH (09:30)
[2021-04-08] MEDS: HumaLOG 300 UNITS/3 ML VIAL SC PRN (11:18)
[2021-04-08] MEDS: Acetaminophen 325 MG TAB PO PRN ×2 (12:17→21:13)
[2021-04-08 14:21] LABS: Vancomycin, Trough 27.3 ug/mL
[2021-04-08] MEDS ORDERED: CATH Communication Order-Pharmacy FS SCH (14:30)
[2021-04-08] MEDS ORDERED: VANCOMYCIN 1.25 GM/250 ML BAG 1.25 GM in Premix Bag 1 BAG IVPB SCH (15:00)
[2021-04-08] MEDS: Heparin 5,000 UNITS/ML VIAL SC SCH (21:14)
[2021-04-09 03:51] LABS: #Eosinphils 0.1 thou/uL (0.0-0.7); #Monocytes 0.8 thou/uL (0.11-0.59); #Neutrophils 6.8 thou/uL (1.40-6.50); %Basophils 0.4 % (0.0-1.0); %Eosinophils 1.5 % (0.0-10.0); Hemoglobin 8.8 g/dL (14.0-18.0); Mean Corpuscular HGB CONC 34.4 g/dL (32.0-36.0); Mean Corpuscular Hemoglobin 31.8 pg (27.0-31.0); Mean Corpuscular Volume 92.5 fL (78.0-98.0); Mean Platelet Volume 6.9 fL (7.4-10.4); Platelet Count 421 thou/uL (130-400); RBC Distribution Width 14.4 % (11.5-14.5); Red Blood Cell (RBC) Count 2.78 mill/uL (4.70-6.10); White Blood Cell (WBC) Count 9.8 thou/uL (4.8-10.8)
[2021-04-09] MEDS: Furosemide 100 MG in Sodium Chloride 0.9% 90 ML IVPB SCH ×4 (04:06→23:38)
[2021-04-09 04:36] LABS: ALT (SGPT) 14 U/L (8-55); AST (SGOT) 15 U/L (5-34); Albumin 2.7 g/dL (3.4-4.8); Alkaline Phosphatase 100 U/L (40-110); Anion Gap 16 mmol/L (10-20); BUN (Urea Nitrogen) 69 mg/dL (8.4-25.7); Bilirubin, Total 0.2 mg/dL (0.2-1.2); Calc. Creatinine Clearance 32 mL/min (70-130); Calcium 8.4 mg/dL (7.8-10.44); Carbon Dioxide 23 mmol/L (23-31); Chloride 104 mmol/L (98-107); Globulin 4.1 g/dL (2.4-3.5); Glucose 126 mg/dL (80-115); Magnesium 2.1 mg/dL (1.6-2.6); Potassium 4.4 mmol/L (3.5-5.1); Protein, Total 6.8 g/dL (5.8-8.1); Sodium 139 mmol/L (136-145)
[2021-04-09 04:37] LABS: Phosphorus 4.5 mg/dL (2.3-4.7)
[2021-04-09] MEDS: Aspirin 81 mg Enteric Coated Tablet PO SCH (08:39)
[2021-04-09] MEDS: Ferrous Sulfate 325 MG TAB PO SCH (08:39)
[2021-04-09] MEDS: metroNIDAZOLE 500 MG TAB PO SCH ×3 (08:39→20:15)
[2021-04-09] MEDS: Metolazone 5 MG TAB PO SCH (08:40)
[2021-04-09] MEDS: Multivitamin W/ Minerals 1 TAB PO SCH (08:41)
[2021-04-09] MEDS: Clopidogrel Bisulfate 75 MG TAB PO SCH (08:41)
[2021-04-09] MEDS: Magnesium Oxide 400 MG TAB PO SCH (08:41)
[2021-04-09] MEDS: Atorvastatin Calcium 40 MG TAB PO SCH (08:41)
[2021-04-09] MEDS: Heparin 5,000 UNITS/ML VIAL SC SCH ×2 (08:43→20:16)
[2021-04-09] MEDS: Carvedilol 6.25 MG TAB PO SCH ×3 (10:57→20:16)
[2021-04-09] MEDS: Amiodarone 200 MG TAB PO SCH ×3 (10:57→20:16)
[2021-04-09] MEDS: NIFEdipine XL 60 MG TAB PO SCH (10:58)
[2021-04-09] MEDS: HumaLOG 300 UNITS/3 ML VIAL SC PRN ×2 (11:30→20:23)
[2021-04-09 14:32] LABS: Vancomycin, Random 19.5 ug/mL (See Comment)
[2021-04-09] MEDS ORDERED: Vancomycin HCl 750 MG in Sodium Chloride 0.9% 250 ML 250 ML IVPB SCH (15:00)
[2021-04-09] MEDS: Acetaminophen 325 MG TAB PO PRN (15:12)
[2021-04-09 15:38] LABS: ANA Symphony (Qualitative) Negative (Negative); ANA Symphony (Quantitative) 0.4 Ratio (< 0.7 Negative); dsDNA IgG Antibody 1.2 IU/mL (<10 Negative)
[2021-04-10 03:44] LABS: #Basophils 0.1 thou/uL (0.0-0.2); #Eosinphils 0.2 thou/uL (0.0-0.7); #Lymphocytes 2.2 thou/uL (1.20-3.40); #Neutrophils 7.1 thou/uL (1.40-6.50); %Basophils 0.5 % (0.0-1.0); %Eosinophils 1.5 % (0.0-10.0); %Lymphocytes 21.1 % (21.0-51.0); %Monocytes 9.3 % (0.0-10.0); %Neutrophils 67.6 % (42.0-75.0); Hemoglobin 8.8 g/dL (14.0-18.0); Mean Corpuscular HGB CONC 31.6 g/dL (32.0-36.0); Mean Corpuscular Hemoglobin 29.7 pg (27.0-31.0); Platelet Count 402 thou/uL (130-400); RBC Distribution Width 14.7 % (11.5-14.5); Red Blood Cell (RBC) Count 2.96 mill/uL (4.70-6.10); White Blood Cell (WBC) Count 10.4 thou/uL (4.8-10.8)
[2021-04-10 04:05] LABS: Phosphorus 4.2 mg/dL (2.3-4.7)
[2021-04-10 04:07] LABS: Anion Gap 15 mmol/L (10-20); BUN (Urea Nitrogen) 71 mg/dL (8.4-25.7); Calc. Creatinine Clearance 34 mL/min (70-130); Calcium 8.1 mg/dL (7.8-10.44); Carbon Dioxide 27 mmol/L (23-31); Chloride 102 mmol/L (98-107); Glucose 106 mg/dL (80-115); Magnesium 1.9 mg/dL (1.6-2.6); Potassium 4.3 mmol/L (3.5-5.1); Sodium 140 mmol/L (136-145)
[2021-04-10] MEDS: Furosemide 100 MG in Sodium Chloride 0.9% 90 ML IVPB SCH ×2 (05:33→10:48)
[2021-04-10] MEDS: Magnesium Oxide 400 MG TAB PO SCH (09:18)
[2021-04-10] MEDS: Carvedilol 6.25 MG TAB PO SCH ×3 (09:18→20:44)
[2021-04-10] MEDS: metroNIDAZOLE 500 MG TAB PO SCH ×3 (09:18→20:42)
[2021-04-10] MEDS: Clopidogrel Bisulfate 75 MG TAB PO SCH (09:19)
[2021-04-10] MEDS: Atorvastatin Calcium 40 MG TAB PO SCH (09:19)
[2021-04-10] MEDS: Aspirin 81 mg Enteric Coated Tablet PO SCH (09:19)
[2021-04-10] MEDS: Amiodarone 200 MG TAB PO SCH ×4 (09:19→20:45)
[2021-04-10] MEDS: Ferrous Sulfate 325 MG TAB PO SCH (09:19)
[2021-04-10] MEDS: Multivitamin W/ Minerals 1 TAB PO SCH (09:19)
[2021-04-10] MEDS: Metolazone 5 MG TAB PO SCH (09:19)
[2021-04-10] MEDS: Heparin 5,000 UNITS/ML VIAL SC SCH ×2 (09:20→20:42)
[2021-04-10 14:46] LABS: Vancomycin, Random 23.4 ug/mL (See Comment)
[2021-04-10 15:40] LABS: SARS-CoV-2 PCR by NAA Not Detected (NotDetected)
[2021-04-10] MEDS: Furosemide 100 MG/10 ML VIAL SLOW IVP SCH ×2 (16:48→20:43)
[2021-04-11 04:17] LABS: #Eosinphils 0.2 thou/uL (0.0-0.7); #Lymphocytes 1.6 thou/uL (1.20-3.40); #Monocytes 0.8 thou/uL (0.11-0.59); #Neutrophils 6.6 thou/uL (1.40-6.50); %Basophils 0.4 % (0.0-1.0); %Lymphocytes 17.7 % (21.0-51.0); %Neutrophils 70.9 % (42.0-75.0); Mean Corpuscular HGB CONC 32.2 g/dL (32.0-36.0); Mean Platelet Volume 6.7 fL (7.4-10.4); Platelet Count 400 thou/uL (130-400); RBC Distribution Width 14.8 % (11.5-14.5); White Blood Cell (WBC) Count 9.3 thou/uL (4.8-10.8)
[2021-04-11 04:40] LABS: Calcium 8.3 mg/dL (7.8-10.44); Chloride 102 mmol/L (98-107); Potassium 4.1 mmol/L (3.5-5.1); Sodium 140 mmol/L (136-145)
[2021-04-11 04:41] LABS: Glucose 134 mg/dL (80-115)
[2021-04-11 04:42] LABS: Carbon Dioxide 25 mmol/L (23-31)
[2021-04-11 04:44] LABS: Calc. Creatinine Clearance 35 mL/min (70-130)
[2021-04-11 04:45] LABS: Anion Gap 17 mmol/L (10-20); BUN (Urea Nitrogen) 68 mg/dL (8.4-25.7)
[2021-04-11] MEDS ORDERED: Communication Order-Pharmacy FS SCH (09:00)
[2021-04-11] MEDS: metroNIDAZOLE 500 MG TAB PO SCH ×3 (11:17→20:42)
[2021-04-11] MEDS: Aspirin 81 mg Enteric Coated Tablet PO SCH (11:17)
[2021-04-11] MEDS: Ferrous Sulfate 325 MG TAB PO SCH ×2 (11:17→20:55)
[2021-04-11] MEDS: Metolazone 5 MG TAB PO SCH (11:17)
[2021-04-11] MEDS: Multivitamin W/ Minerals 1 TAB PO SCH (11:18)
[2021-04-11] MEDS: Carvedilol 6.25 MG TAB PO SCH ×3 (11:18→22:55)
[2021-04-11] MEDS: Clopidogrel Bisulfate 75 MG TAB PO SCH (11:18)
[2021-04-11] MEDS: Magnesium Oxide 400 MG TAB PO SCH (11:18)
[2021-04-11] MEDS: Amiodarone 200 MG TAB PO SCH ×2 (11:18→22:55)
[2021-04-11] MEDS: Atorvastatin Calcium 40 MG TAB PO SCH (11:18)
[2021-04-11] MEDS: Furosemide 100 MG/10 ML VIAL SLOW IVP SCH ×3 (11:19→20:48)
[2021-04-11] MEDS ORDERED: Acetylcysteine 20% 200 MG/ML 30 ML VIAL PO SCH (12:30)
[2021-04-11 14:52] LABS: Vancomycin, Random 18.6 ug/mL (See Comment)
[2021-04-11] MEDS ORDERED: Vancomycin HCl 500 MG in Sodium Chloride 0.9% 100 ML IVPB SCH (15:15)
[2021-04-11] MEDS: Acetylcysteine 20% 200 MG/ML 30 ML VIAL PO SCH (20:46)
[2021-04-12 05:47] LABS: #Eosinphils 0.2 thou/uL (0.0-0.7); #Lymphocytes 2.1 thou/uL (1.20-3.40); #Monocytes 0.8 thou/uL (0.11-0.59); #Neutrophils 6.1 thou/uL (1.40-6.50); %Basophils 0.5 % (0.0-1.0); %Eosinophils 2.5 % (0.0-10.0); %Lymphocytes 22.6 % (21.0-51.0); %Monocytes 8.2 % (0.0-10.0); %Neutrophils 66.2 % (42.0-75.0); Hemoglobin 9.5 g/dL (14.0-18.0); Mean Corpuscular HGB CONC 32.3 g/dL (32.0-36.0); Mean Corpuscular Hemoglobin 30.3 pg (27.0-31.0); Mean Platelet Volume 6.6 fL (7.4-10.4); Platelet Count 438 thou/uL (130-400); Red Blood Cell (RBC) Count 3.14 mill/uL (4.70-6.10); White Blood Cell (WBC) Count 9.1 thou/uL (4.8-10.8)
[2021-04-12 06:06] LABS: Anion Gap 14 mmol/L (10-20); BUN (Urea Nitrogen) 63 mg/dL (8.4-25.7); Calc. Creatinine Clearance 36 mL/min (70-130); Calcium 8.7 mg/dL (7.8-10.44); Carbon Dioxide 29 mmol/L (23-31); Chloride 100 mmol/L (98-107); Glucose 119 mg/dL (80-115); Potassium 4.2 mmol/L (3.5-5.1); Sodium 139 mmol/L (136-145)
[2021-04-12] MEDS ORDERED: Lidocaine 1% (PF) 30 ML VIAL ONE (07:09)
[2021-04-12] MEDS ORDERED: Heparin 10,000 UNITS/ 10 ML VIAL ONE (07:11)
[2021-04-12] MEDS: Acetylcysteine 20% 200 MG/ML 30 ML VIAL PO SCH ×2 (08:12→22:24)
[2021-04-12] MEDS ORDERED: Fentanyl 100 MCG/2 ML VIAL ONE (08:20)
[2021-04-12] MEDS ORDERED: Midazolam HCl 2 mg/2 ml Vial ONE (08:20)
[2021-04-12] MEDS ORDERED: Protamine Sulfate 50 MG/5 ML VIAL ONE (08:39)
[2021-04-12] MEDS ORDERED: Sodium Chloride 0.9% 200 ML IV PRN (08:52)
[2021-04-12] MEDS ORDERED: Acetaminophen/Codeine 30-300mg Tablet PO PRN ×2 (08:52)
[2021-04-12] MEDS ORDERED: Nitroglycerin 0.4 MG TAB (25 Tab Bottle) SL PRN (08:52)
[2021-04-12] MEDS ORDERED: Sodium Chloride 0.9% 1,000 ML IV SCH (09:00)
[2021-04-12] MEDS: Ferrous Sulfate 325 MG TAB PO SCH ×2 (10:12→22:24)
[2021-04-12] MEDS: metroNIDAZOLE 500 MG TAB PO SCH ×3 (10:12→22:23)
[2021-04-12] MEDS: Metolazone 5 MG TAB PO SCH (10:12)
[2021-04-12] MEDS: Aspirin 81 mg Enteric Coated Tablet PO SCH (10:13)
[2021-04-12] MEDS: Amiodarone 200 MG TAB PO SCH (10:13)
[2021-04-12] MEDS: Carvedilol 6.25 MG TAB PO SCH ×3 (10:14→22:34)
[2021-04-12] MEDS: Magnesium Oxide 400 MG TAB PO SCH (10:14)
[2021-04-12] MEDS: Multivitamin W/ Minerals 1 TAB PO SCH (10:14)
[2021-04-12] MEDS: Clopidogrel Bisulfate 75 MG TAB PO SCH (10:14)
[2021-04-12] MEDS: Atorvastatin Calcium 40 MG TAB PO SCH (10:14)
[2021-04-12] MEDS: Furosemide 100 MG/10 ML VIAL SLOW IVP SCH (10:18)
[2021-04-12] MEDS ORDERED: Iopamidol 370 76% 100 ML VIAL ONE (10:25)
[2021-04-12 14:57] LABS: Vancomycin, Random 17.7 ug/mL (See Comment)
[2021-04-12] MEDS ORDERED: Vancomycin HCl 500 MG in Sodium Chloride 0.9% 100 ML IVPB SCH (16:00)
[2021-04-13 03:23] LABS: #Basophils 0.1 thou/uL (0.0-0.2); #Eosinphils 0.2 thou/uL (0.0-0.7); #Lymphocytes 1.7 thou/uL (1.20-3.40); #Monocytes 0.8 thou/uL (0.11-0.59); #Neutrophils 6.9 thou/uL (1.40-6.50); %Basophils 0.5 % (0.0-1.0); %Eosinophils 2.3 % (0.0-10.0); %Lymphocytes 17.6 % (21.0-51.0); %Neutrophils 71.5 % (42.0-75.0); Hemoglobin 9.7 g/dL (14.0-18.0); Mean Corpuscular HGB CONC 33.1 g/dL (32.0-36.0); Mean Corpuscular Hemoglobin 31.2 pg (27.0-31.0); Mean Corpuscular Volume 94.2 fL (78.0-98.0); Mean Platelet Volume 6.7 fL (7.4-10.4); Platelet Count 441 thou/uL (130-400); RBC Distribution Width 16.1 % (11.5-14.5); White Blood Cell (WBC) Count 9.6 thou/uL (4.8-10.8)
[2021-04-13 03:46] LABS: Anion Gap 14 mmol/L (10-20); BUN (Urea Nitrogen) 57 mg/dL (8.4-25.7); Calc. Creatinine Clearance 38 mL/min (70-130); Calcium 8.8 mg/dL (7.8-10.44); Carbon Dioxide 28 mmol/L (23-31); Chloride 102 mmol/L (98-107); Glucose 138 mg/dL (80-115); Potassium 4.2 mmol/L (3.5-5.1); Sodium 140 mmol/L (136-145)
[2021-04-13] MEDS: Atorvastatin Calcium 40 MG TAB PO SCH (09:17)
[2021-04-13] MEDS: Metolazone 5 MG TAB PO SCH (09:17)
[2021-04-13] MEDS: Amiodarone 200 MG TAB PO SCH (09:17)
[2021-04-13] MEDS: Aspirin 81 mg Enteric Coated Tablet PO SCH (09:18)
[2021-04-13] MEDS: Carvedilol 6.25 MG TAB PO SCH ×3 (09:18→20:55)
[2021-04-13] MEDS: Ferrous Sulfate 325 MG TAB PO SCH ×2 (09:18→20:54)
[2021-04-13] MEDS: Multivitamin W/ Minerals 1 TAB PO SCH (09:18)
[2021-04-13] MEDS: Clopidogrel Bisulfate 75 MG TAB PO SCH (09:19)
[2021-04-13] MEDS: Magnesium Oxide 400 MG TAB PO SCH (09:19)
[2021-04-13] MEDS: Furosemide 100 MG/10 ML VIAL SLOW IVP SCH ×3 (09:19→20:54)
[2021-04-13] MEDS: metroNIDAZOLE 500 MG TAB PO SCH ×3 (09:19→20:54)
[2021-04-13] MEDS: EPOETIN ALFA-EPBX (ESRD) 10,000 UNIT/ML VIAL SC SCH (10:32)
[2021-04-13 16:03] LABS: Vancomycin, Random 16.1 ug/mL (See Comment)
[2021-04-13] MEDS ORDERED: Vancomycin HCl 500 MG in Sodium Chloride 0.9% 100 ML IVPB SCH (16:30)
[2021-04-14 05:04] LABS: #Basophils 0.1 thou/uL (0.0-0.2); #Eosinphils 0.2 thou/uL (0.0-0.7); #Lymphocytes 1.9 thou/uL (1.20-3.40); #Monocytes 0.7 thou/uL (0.11-0.59); #Neutrophils 6.5 thou/uL (1.40-6.50); %Basophils 0.8 % (0.0-1.0); %Eosinophils 1.8 % (0.0-10.0); %Lymphocytes 20.4 % (21.0-51.0); Hemoglobin 9.6 g/dL (14.0-18.0); Mean Corpuscular HGB CONC 32.4 g/dL (32.0-36.0); Mean Corpuscular Hemoglobin 30.5 pg (27.0-31.0); Mean Corpuscular Volume 94.2 fL (78.0-98.0); Mean Platelet Volume 6.6 fL (7.4-10.4); Platelet Count 463 thou/uL (130-400); Red Blood Cell (RBC) Count 3.15 mill/uL (4.70-6.10); White Blood Cell (WBC) Count 9.3 thou/uL (4.8-10.8)
[2021-04-14 05:25] LABS: Anion Gap 14 mmol/L (10-20); BUN (Urea Nitrogen) 54 mg/dL (8.4-25.7); Calc. Creatinine Clearance 36 mL/min (70-130); Calcium 8.8 mg/dL (7.8-10.44); Carbon Dioxide 28 mmol/L (23-31); Chloride 101 mmol/L (98-107); Glucose 118 mg/dL (80-115); Sodium 139 mmol/L (136-145)
[2021-04-14] MEDS: metroNIDAZOLE 500 MG TAB PO SCH ×3 (08:48→20:28)
[2021-04-14] MEDS: Carvedilol 6.25 MG TAB PO SCH ×3 (08:48→20:29)
[2021-04-14] MEDS: Multivitamin W/ Minerals 1 TAB PO SCH (08:48)
[2021-04-14] MEDS: Ferrous Sulfate 325 MG TAB PO SCH ×2 (08:49→20:29)
[2021-04-14] MEDS: Metolazone 5 MG TAB PO SCH (08:49)
[2021-04-14] MEDS: Atorvastatin Calcium 40 MG TAB PO SCH (08:49)
[2021-04-14] MEDS: Clopidogrel Bisulfate 75 MG TAB PO SCH (08:49)
[2021-04-14] MEDS: Aspirin 81 mg Enteric Coated Tablet PO SCH (08:49)
[2021-04-14] MEDS: Amiodarone 200 MG TAB PO SCH (08:49)
[2021-04-14] MEDS: Magnesium Oxide 400 MG TAB PO SCH (08:49)
[2021-04-14] MEDS: Torsemide 100 MG TAB PO SCH ×2 (10:00→20:40)
[2021-04-14 15:02] LABS: Vancomycin, Random 19.4 ug/mL (See Comment)
[2021-04-14] MEDS ORDERED: Dextrose 50% Abboject 50 ML SYRINGE SLOW IVP PRN (16:49)
[2021-04-14] MEDS ORDERED: Dextrose 5% in Water 1,000 ML IV PRN (16:49)
[2021-04-14] MEDS ORDERED: Vancomycin HCl 500 MG in Sodium Chloride 0.9% 100 ML IVPB SCH (17:00)
[2021-04-14] MEDS: HumaLOG 300 UNITS/3 ML VIAL SC PRN (17:03)
[2021-04-15] MEDS ORDERED: hydrALAZINE 20 MG/ML VIAL SLOW IVP PRN (03:44)
[2021-04-15 04:29] LABS: #Basophils 0.1 thou/uL (0.0-0.2); #Eosinphils 0.2 thou/uL (0.0-0.7); #Lymphocytes 1.9 thou/uL (1.20-3.40); #Monocytes 0.7 thou/uL (0.11-0.59); #Neutrophils 5.3 thou/uL (1.40-6.50); %Eosinophils 2.2 % (0.0-10.0); %Lymphocytes 23.7 % (21.0-51.0); %Monocytes 8.1 % (0.0-10.0); Hemoglobin 10.2 g/dL (14.0-18.0); Mean Corpuscular HGB CONC 32.4 g/dL (32.0-36.0); Mean Corpuscular Hemoglobin 30.8 pg (27.0-31.0); Mean Corpuscular Volume 95.1 fL (78.0-98.0); Mean Platelet Volume 6.7 fL (7.4-10.4); Platelet Count 464 thou/uL (130-400); RBC Distribution Width 15.4 % (11.5-14.5); Red Blood Cell (RBC) Count 3.29 mill/uL (4.70-6.10); White Blood Cell (WBC) Count 8.1 thou/uL (4.8-10.8)
[2021-04-15 04:40] LABS: Anion Gap 15 mmol/L (10-20); BUN (Urea Nitrogen) 53 mg/dL (8.4-25.7); Calc. Creatinine Clearance 32 mL/min (70-130); Calcium 8.8 mg/dL (7.8-10.44); Carbon Dioxide 26 mmol/L (23-31); Chloride 100 mmol/L (98-107); Glucose 128 mg/dL (80-115); Potassium 4.3 mmol/L (3.5-5.1); Sodium 137 mmol/L (136-145)
[2021-04-15] MEDS: Carvedilol 6.25 MG TAB PO SCH ×3 (08:48→21:15)
[2021-04-15] MEDS ORDERED: NIFEdipine XL 60 MG TAB PO SCH (09:00)
[2021-04-15] MEDS: Torsemide 100 MG TAB PO SCH ×2 (09:05→21:16)
[2021-04-15] MEDS: Clopidogrel Bisulfate 75 MG TAB PO SCH (09:05)
[2021-04-15] MEDS: Atorvastatin Calcium 40 MG TAB PO SCH (09:05)
[2021-04-15] MEDS: Ferrous Sulfate 325 MG TAB PO SCH ×2 (09:05→21:15)
[2021-04-15] MEDS: Multivitamin W/ Minerals 1 TAB PO SCH (09:05)
[2021-04-15] MEDS: Metolazone 5 MG TAB PO SCH (09:05)
[2021-04-15] MEDS: metroNIDAZOLE 500 MG TAB PO SCH ×3 (09:05→21:15)
[2021-04-15] MEDS: Magnesium Oxide 400 MG TAB PO SCH (09:05)
[2021-04-15] MEDS: Aspirin 81 mg Enteric Coated Tablet PO SCH (09:05)
[2021-04-15] MEDS: Amiodarone 200 MG TAB PO SCH (09:05)
[2021-04-15 16:16] LABS: Vancomycin, Random 19.2 ug/mL (See Comment)
[2021-04-15] MEDS: HumaLOG 300 UNITS/3 ML VIAL SC PRN (17:18)
[2021-04-15] MEDS ORDERED: Vancomycin HCl 500 MG in Sodium Chloride 0.9% 100 ML IVPB SCH (17:30)
[2021-04-16 05:07] LABS: #Basophils 0.1 thou/uL (0.0-0.2); #Eosinphils 0.1 thou/uL (0.0-0.7); #Lymphocytes 1.9 thou/uL (1.20-3.40); #Monocytes 0.6 thou/uL (0.11-0.59); %Basophils 0.9 % (0.0-1.0); %Eosinophils 1.6 % (0.0-10.0); %Lymphocytes 24.8 % (21.0-51.0); %Neutrophils 64.7 % (42.0-75.0); Hemoglobin 9.8 g/dL (14.0-18.0); Mean Corpuscular HGB CONC 31.2 g/dL (32.0-36.0); Mean Corpuscular Hemoglobin 29.5 pg (27.0-31.0); Mean Corpuscular Volume 94.3 fL (78.0-98.0); Platelet Count 490 thou/uL (130-400); RBC Distribution Width 15.5 % (11.5-14.5); Red Blood Cell (RBC) Count 3.33 mill/uL (4.70-6.10); White Blood Cell (WBC) Count 7.8 thou/uL (4.8-10.8)
[2021-04-16 05:25] LABS: Anion Gap 18 mmol/L (10-20); BUN (Urea Nitrogen) 59 mg/dL (8.4-25.7); Calc. Creatinine Clearance 26 mL/min (70-130); Calcium 8.9 mg/dL (7.8-10.44); Carbon Dioxide 24 mmol/L (23-31); Chloride 100 mmol/L (98-107); Glucose 127 mg/dL (80-115); Potassium 4.8 mmol/L (3.5-5.1); Sodium 137 mmol/L (136-145)
[2021-04-16] MEDS: Amiodarone 200 MG TAB PO SCH (09:46)
[2021-04-16] MEDS: Carvedilol 6.25 MG TAB PO SCH ×3 (09:46→22:34)
[2021-04-16] MEDS: Ferrous Sulfate 325 MG TAB PO SCH ×2 (09:46→22:34)
[2021-04-16] MEDS: Metolazone 5 MG TAB PO SCH (09:46)
[2021-04-16] MEDS: Magnesium Oxide 400 MG TAB PO SCH (09:46)
[2021-04-16] MEDS: NIFEdipine XL 90 MG TAB PO SCH (09:46)
[2021-04-16] MEDS: Atorvastatin Calcium 40 MG TAB PO SCH (09:46)
[2021-04-16] MEDS: Clopidogrel Bisulfate 75 MG TAB PO SCH (09:46)
[2021-04-16] MEDS: metroNIDAZOLE 500 MG TAB PO SCH ×3 (09:46→22:34)
[2021-04-16] MEDS: Aspirin 81 mg Enteric Coated Tablet PO SCH (09:46)
[2021-04-16] MEDS: Multivitamin W/ Minerals 1 TAB PO SCH (09:46)
[2021-04-16] MEDS: HumaLOG 300 UNITS/3 ML VIAL SC PRN ×2 (11:21→16:23)
[2021-04-16] MEDS: Heparin 5,000 UNITS/ML VIAL SC SCH ×2 (16:08→22:34)
[2021-04-16 17:50] LABS: Vancomycin, Random 21.1 ug/mL (See Comment)
[2021-04-16] MEDS ORDERED: Vancomycin HCl 500 MG in Sodium Chloride 0.9% 100 ML IVPB SCH ×2 (19:00→21:00)
[2021-04-17 05:44] LABS: Albumin 2.8 g/dL (3.4-4.8); Anion Gap 15 mmol/L (10-20); BUN (Urea Nitrogen) 60 mg/dL (8.4-25.7); BUN/Creatinine Ratio 18.13; Calc. Creatinine Clearance 25 mL/min (70-130); Calcium 8.7 mg/dL (7.8-10.44); Carbon Dioxide 27 mmol/L (23-31); Chloride 98 mmol/L (98-107); Glucose 108 mg/dL (80-115); Phosphorus 4.3 mg/dL (2.3-4.7); Potassium 4.5 mmol/L (3.5-5.1); Sodium 135 mmol/L (136-145)
[2021-04-17] MEDS: Atorvastatin Calcium 40 MG TAB PO SCH (08:24)
[2021-04-17] MEDS: NIFEdipine XL 90 MG TAB PO SCH (08:24)
[2021-04-17] MEDS: Magnesium Oxide 400 MG TAB PO SCH (08:24)
[2021-04-17] MEDS: Multivitamin W/ Minerals 1 TAB PO SCH (08:24)
[2021-04-17] MEDS: Heparin 5,000 UNITS/ML VIAL SC SCH ×3 (08:24→21:18)
[2021-04-17] MEDS: Ferrous Sulfate 325 MG TAB PO SCH ×2 (08:24→21:18)
[2021-04-17] MEDS: Carvedilol 6.25 MG TAB PO SCH ×3 (08:24→21:18)
[2021-04-17] MEDS: Amiodarone 200 MG TAB PO SCH (08:24)
[2021-04-17] MEDS: metroNIDAZOLE 500 MG TAB PO SCH ×2 (15:11→21:18)
[2021-04-17] MEDS: HumaLOG 300 UNITS/3 ML VIAL SC PRN (17:13)
[2021-04-17 20:16] LABS: Vancomycin, Random 19.8 ug/mL (See Comment)
[2021-04-17] MEDS ORDERED: Vancomycin HCl 500 MG in Sodium Chloride 0.9% 100 ML IVPB SCH (21:00)
[2021-04-17 21:15] LABS: SARS-CoV-2 PCR by NAA Not Detected (NotDetected)
[2021-04-17] MEDS: Torsemide 100 MG TAB PO SCH (21:19)
[2021-04-18 06:48] LABS: Anion Gap 15 mmol/L (10-20); BUN (Urea Nitrogen) 62 mg/dL (8.4-25.7); Calc. Creatinine Clearance 26 mL/min (70-130); Calcium 8.9 mg/dL (7.8-10.44); Carbon Dioxide 26 mmol/L (23-31); Chloride 101 mmol/L (98-107); Glucose 112 mg/dL (80-115); Magnesium 1.9 mg/dL (1.6-2.6); Sodium 137 mmol/L (136-145)
[2021-04-18] MEDS ORDERED: Torsemide 100 MG TAB PO SCH (09:00)
[2021-04-18] MEDS: Atorvastatin Calcium 40 MG TAB PO SCH (10:23)
[2021-04-18] MEDS: NIFEdipine XL 90 MG TAB PO SCH (10:23)
[2021-04-18] MEDS: Heparin 5,000 UNITS/ML VIAL SC SCH ×3 (10:23→21:46)
[2021-04-18] MEDS: Amiodarone 200 MG TAB PO SCH (10:23)
[2021-04-18] MEDS: Magnesium Oxide 400 MG TAB PO SCH (10:23)
[2021-04-18] MEDS: Multivitamin W/ Minerals 1 TAB PO SCH (10:24)
[2021-04-18] MEDS: metroNIDAZOLE 500 MG TAB PO SCH ×3 (10:24→21:46)
[2021-04-18] MEDS: Ferrous Sulfate 325 MG TAB PO SCH ×2 (10:24→21:46)
[2021-04-18] MEDS: Carvedilol 6.25 MG TAB PO SCH ×3 (10:24→21:47)
[2021-04-18 16:06] LABS: Anion Gap 17 mmol/L (10-20); BUN (Urea Nitrogen) 62 mg/dL (8.4-25.7); BUN/Creatinine Ratio 19.25; Calc. Creatinine Clearance 26 mL/min (70-130); Calcium 8.9 mg/dL (7.8-10.44); Carbon Dioxide 24 mmol/L (23-31); Chloride 100 mmol/L (98-107); Glucose 109 mg/dL (80-115); Phosphorus 4.4 mg/dL (2.3-4.7); Potassium 5.3 mmol/L (3.5-5.1); Sodium 136 mmol/L (136-145)
[2021-04-18 20:13] LABS: Vancomycin, Trough 20.5 ug/mL
[2021-04-19 05:37] LABS: Albumin 2.9 g/dL (3.4-4.8); Anion Gap 16 mmol/L (10-20); BUN (Urea Nitrogen) 66 mg/dL (8.4-25.7); BUN/Creatinine Ratio 17.89; Calc. Creatinine Clearance 22 mL/min (70-130); Calcium 8.9 mg/dL (7.8-10.44); Carbon Dioxide 25 mmol/L (23-31); Chloride 100 mmol/L (98-107); Glucose 95 mg/dL (83-110); Magnesium 1.9 mg/dL (1.6-2.6); Phosphorus 4.5 mg/dL (2.3-4.7); Potassium 5.1 mmol/L (3.5-5.1); Sodium 136 mmol/L (136-145)
[2021-04-19] MEDS: Amiodarone 200 MG TAB PO SCH (10:19)
[2021-04-19] MEDS: Multivitamin W/ Minerals 1 TAB PO SCH (10:19)
[2021-04-19] MEDS: NIFEdipine XL 90 MG TAB PO SCH (10:19)
[2021-04-19] MEDS: Carvedilol 6.25 MG TAB PO SCH ×3 (10:19→21:01)
[2021-04-19] MEDS: Magnesium Oxide 400 MG TAB PO SCH (10:20)
[2021-04-19] MEDS: metroNIDAZOLE 500 MG TAB PO SCH ×3 (10:20→21:00)
[2021-04-19] MEDS: Ferrous Sulfate 325 MG TAB PO SCH ×2 (10:20→21:01)
[2021-04-19] MEDS: Atorvastatin Calcium 40 MG TAB PO SCH (10:20)
[2021-04-19] MEDS: Heparin 5,000 UNITS/ML VIAL SC SCH ×3 (10:21→23:06)
[2021-04-19] MEDS ORDERED: Fentanyl 100 MCG/2 ML VIAL ONE ×2 (15:30→16:01)
[2021-04-19] MEDS ORDERED: Midazolam HCl 2 mg/2 ml Vial ONE ×2 (15:30→16:01)
[2021-04-19] MEDS ORDERED: Dexamethasone 4 mg/ml Vial ONE (15:39)
[2021-04-19] MEDS ORDERED: ceFAZolin Sodium (SDC) 2 GM/100 ML BAG ONE (16:12)
[2021-04-19] MEDS ORDERED: Bupivacaine HCl 0.5%/Epinephrine 1:200,000/PF 30 ml Vial ONE (17:05)
[2021-04-19] MEDS ORDERED: Dexamethasone 20 MG/5 ML VIAL ONE (17:05)
[2021-04-19] MEDS ORDERED: Morphine 4 MG/ML VIAL SLOW IVP PRN ×2 (18:18→18:27)
[2021-04-19] MEDS ORDERED: HYDROcodone/Acetaminophen 7.5/325 mg Tablet PO PRN (18:19)
[2021-04-19] MEDS ORDERED: Ondansetron HCl/PF 4 MG/2 ML Vial IVP PRN (18:26)
[2021-04-19] MEDS ORDERED: Promethazine HCl 25 MG/ML VIAL IVPB PRN (18:26)
[2021-04-19] MEDS ORDERED: Promethazine HCl 25 MG/ML VIAL IM PRN (18:26)
[2021-04-19 20:50] LABS: Vancomycin, Random 17.5 ug/mL (See Comment)
[2021-04-19] MEDS ORDERED: Vancomycin HCl 500 MG in Sodium Chloride 0.9% 100 ML IVPB SCH (21:30)
[2021-04-20 05:03] LABS: #Lymphocytes 0.9 thou/uL (1.20-3.40); #Monocytes 0.2 thou/uL (0.11-0.59); #Neutrophils 6.5 thou/uL (1.40-6.50); %Basophils 0.1 % (0.0-1.0); %Eosinophils 0.1 % (0.0-10.0); %Lymphocytes 12.3 % (21.0-51.0); %Monocytes 2.7 % (0.0-10.0); %Neutrophils 84.8 % (42.0-75.0); Hemoglobin 9.8 g/dL (14.0-18.0); Mean Corpuscular HGB CONC 33.1 g/dL (32.0-36.0); Mean Corpuscular Volume 93.6 fL (78.0-98.0); Mean Platelet Volume 7.2 fL (7.4-10.4); Platelet Count 515 thou/uL (130-400); RBC Distribution Width 14.4 % (11.5-14.5); Red Blood Cell (RBC) Count 3.16 mill/uL (4.70-6.10); White Blood Cell (WBC) Count 7.7 thou/uL (4.8-10.8)
[2021-04-20 05:19] LABS: Anion Gap 16 mmol/L (10-20); BUN (Urea Nitrogen) 72 mg/dL (8.4-25.7); BUN/Creatinine Ratio 18.37; Calc. Creatinine Clearance 20 mL/min (70-130); Calcium 9.1 mg/dL (7.8-10.44); Carbon Dioxide 25 mmol/L (23-31); Chloride 99 mmol/L (98-107); Glucose 333 mg/dL (83-110); Magnesium 2.2 mg/dL (1.6-2.6); Phosphorus 5.3 mg/dL (2.3-4.7); Potassium 5.9 mmol/L (3.5-5.1); Sodium 134 mmol/L (136-145)
[2021-04-20] MEDS: HumaLOG 300 UNITS/3 ML VIAL SC PRN ×3 (05:43→17:41)
[2021-04-20] MEDS ORDERED: Dextrose 50% Abboject 50 ML SYRINGE SLOW IVP SCH (07:00)
[2021-04-20] MEDS ORDERED: Insulin Regular 300 UNITS/3 ML VIAL IVP SCH (07:01)
[2021-04-20] MEDS: NIFEdipine XL 90 MG TAB PO SCH (10:04)
[2021-04-20] MEDS: metroNIDAZOLE 500 MG TAB PO SCH ×3 (10:05→21:33)
[2021-04-20] MEDS: Amiodarone 200 MG TAB PO SCH (10:06)
[2021-04-20] MEDS: Magnesium Oxide 400 MG TAB PO SCH (10:06)
[2021-04-20] MEDS: Carvedilol 6.25 MG TAB PO SCH ×3 (10:06→21:33)
[2021-04-20] MEDS: Ferrous Sulfate 325 MG TAB PO SCH ×2 (10:06→21:32)
[2021-04-20] MEDS: Multivitamin W/ Minerals 1 TAB PO SCH (10:07)
[2021-04-20] MEDS: Heparin 5,000 UNITS/ML VIAL SC SCH ×3 (10:08→21:33)
[2021-04-20] MEDS: Atorvastatin Calcium 40 MG TAB PO SCH ×2 (10:45→21:32)
[2021-04-20] MEDS: EPOETIN ALFA-EPBX (ESRD) 10,000 UNIT/ML VIAL SC SCH (11:15)
[2021-04-20] MEDS: Sodium Chloride 0.9% 1,000 ML IV SCH (11:15)
[2021-04-20] MEDS: HYDROcodone/Acetaminophen 7.5/325 mg Tablet PO PRN ×2 (13:28→21:34)
[2021-04-20 20:37] LABS: Anion Gap 16 mmol/L (10-20); BUN (Urea Nitrogen) 66 mg/dL (8.4-25.7); Calc. Creatinine Clearance 22 mL/min (70-130); Calcium 8.7 mg/dL (7.8-10.44); Carbon Dioxide 24 mmol/L (23-31); Chloride 101 mmol/L (98-107); Glucose 271 mg/dL (83-110); Potassium 4.5 mmol/L (3.5-5.1); Sodium 136 mmol/L (136-145)
[2021-04-20] MEDS ORDERED: HumaLOG 300 UNITS/3 ML VIAL SC PRN (21:26)
[2021-04-21 05:15] LABS: #Basophils 0.1 thou/uL (0.0-0.2); #Eosinphils 0.1 thou/uL (0.0-0.7); #Lymphocytes 2.6 thou/uL (1.20-3.40); #Monocytes 0.9 thou/uL (0.11-0.59); #Neutrophils 8.6 thou/uL (1.40-6.50); %Basophils 0.6 % (0.0-1.0); %Eosinophils 0.5 % (0.0-10.0); %Lymphocytes 21.1 % (21.0-51.0); %Monocytes 7.4 % (0.0-10.0); %Neutrophils 70.4 % (42.0-75.0); Hemoglobin 9.1 g/dL (14.0-18.0); Mean Corpuscular HGB CONC 33.4 g/dL (32.0-36.0); Mean Corpuscular Hemoglobin 31.2 pg (27.0-31.0); Mean Corpuscular Volume 93.5 fL (78.0-98.0); Mean Platelet Volume 6.5 fL (7.4-10.4); Platelet Count 468 thou/uL (130-400); RBC Distribution Width 14.2 % (11.5-14.5); Red Blood Cell (RBC) Count 2.92 mill/uL (4.70-6.10); White Blood Cell (WBC) Count 12.2 thou/uL (4.8-10.8)
[2021-04-21 05:40] LABS: Albumin 2.8 g/dL (3.4-4.8); Anion Gap 12 mmol/L (10-20); BUN (Urea Nitrogen) 60 mg/dL (8.4-25.7); BUN/Creatinine Ratio 19.11; Calc. Creatinine Clearance 25 mL/min (70-130); Calcium 8.8 mg/dL (7.8-10.44); Carbon Dioxide 28 mmol/L (23-31); Chloride 102 mmol/L (98-107); Glucose 100 mg/dL (83-110); Magnesium 1.9 mg/dL (1.6-2.6); Phosphorus 3.9 mg/dL (2.3-4.7); Potassium 4.2 mmol/L (3.5-5.1); Sodium 138 mmol/L (136-145)
[2021-04-21] MEDS: Sodium Chloride 0.9% 1,000 ML IV SCH (06:09)
[2021-04-21] MEDS: HYDROcodone/Acetaminophen 7.5/325 mg Tablet PO PRN ×2 (06:15→14:51)
[2021-04-21] MEDS: Ferrous Sulfate 325 MG TAB PO SCH ×2 (08:50→20:50)
[2021-04-21] MEDS: Carvedilol 6.25 MG TAB PO SCH ×3 (08:51→20:50)
[2021-04-21] MEDS: Amiodarone 200 MG TAB PO SCH (08:52)
[2021-04-21] MEDS: Multivitamin W/ Minerals 1 TAB PO SCH (08:52)
[2021-04-21] MEDS: NIFEdipine XL 90 MG TAB PO SCH (08:52)
[2021-04-21] MEDS: Magnesium Oxide 400 MG TAB PO SCH (08:52)
[2021-04-21] MEDS: metroNIDAZOLE 500 MG TAB PO SCH ×3 (08:52→20:51)
[2021-04-21] MEDS: Heparin 5,000 UNITS/ML VIAL SC SCH ×3 (08:53→20:52)
[2021-04-21] MEDS ORDERED: Vancomycin HCl 500 MG in Sodium Chloride 0.9% 100 ML IVPB SCH (09:00)
[2021-04-21] MEDS ORDERED: Loperamide HCl 2 MG CAP PO PRN (11:22)
[2021-04-21] MEDS ORDERED: Bisacodyl 5 MG TAB PO PRN (11:22)
[2021-04-21] MEDS ORDERED: Hydrocerin (Eucerin) Cream 120 gm Jar TOP PRN (11:22)
[2021-04-21] MEDS ORDERED: Sodium Chloride 0.65% Nasal 44 ML BOT EA NARE PRN (11:22)
[2021-04-21] MEDS ORDERED: Loratadine 10 MG TAB PO PRN (11:22)
[2021-04-21] MEDS ORDERED: GUAIFENESIN SF SOLN 200 MG/10 ML UDCUP PO PRN (11:22)
[2021-04-21] MEDS ORDERED: Cepastat Lozenges 1 LOZ PO PRN (11:22)
[2021-04-21] MEDS ORDERED: Artificial Tear Sol 15 ML BOT EA EYE PRN (11:22)
[2021-04-21 15:14] VITALS: BMI 26.9
[2021-04-21] MEDS: Atorvastatin Calcium 40 MG TAB PO SCH (20:51)
[2021-04-22 04:50] LABS: #Eosinphils 0.2 thou/uL (0.0-0.7); #Lymphocytes 2.4 thou/uL (1.20-3.40); #Monocytes 0.8 thou/uL (0.11-0.59); #Neutrophils 6.6 thou/uL (1.40-6.50); %Basophils 0.4 % (0.0-1.0); %Eosinophils 1.6 % (0.0-10.0); %Lymphocytes 23.7 % (21.0-51.0); %Neutrophils 66.2 % (42.0-75.0); Hemoglobin 9.1 g/dL (14.0-18.0); Mean Corpuscular HGB CONC 32.6 g/dL (32.0-36.0); Mean Corpuscular Hemoglobin 30.5 pg (27.0-31.0); Mean Corpuscular Volume 93.6 fL (78.0-98.0); Platelet Count 455 thou/uL (130-400); RBC Distribution Width 14.2 % (11.5-14.5); Red Blood Cell (RBC) Count 2.99 mill/uL (4.70-6.10)
[2021-04-22 05:10] LABS: Phosphorus 4.1 mg/dL (2.3-4.7)
[2021-04-22 05:12] LABS: Albumin 2.8 g/dL (3.4-4.8); Anion Gap 14 mmol/L (10-20); BUN (Urea Nitrogen) 56 mg/dL (8.4-25.7); BUN/Creatinine Ratio 19.44; Calc. Creatinine Clearance 27 mL/min (70-130); Calcium 8.7 mg/dL (7.8-10.44); Carbon Dioxide 23 mmol/L (23-31); Chloride 103 mmol/L (98-107); Glucose 168 mg/dL (83-110); Phosphorus 4.2 mg/dL (2.3-4.7); Potassium 4.4 mmol/L (3.5-5.1); Sodium 136 mmol/L (136-145)
[2021-04-22] MEDS ORDERED: Torsemide 20 MG TAB PO SCH (09:00)
[2021-04-22] MEDS ORDERED: NIFEdipine XL 60 MG TAB PO SCH (09:00)
[2021-04-22] MEDS: Multivitamin W/ Minerals 1 TAB PO SCH (09:10)
[2021-04-22] MEDS: metroNIDAZOLE 500 MG TAB PO SCH (09:11)
[2021-04-22] MEDS: Ferrous Sulfate 325 MG TAB PO SCH (09:12)
[2021-04-22] MEDS: Carvedilol 6.25 MG TAB PO SCH (09:12)
[2021-04-22] MEDS: Amiodarone 200 MG TAB PO SCH (09:12)
[2021-04-22] MEDS: Magnesium Oxide 400 MG TAB PO SCH (09:12)
[2021-04-22] MEDS: Heparin 5,000 UNITS/ML VIAL SC SCH (09:13)
[2021-04-22 12:53] VITALS: BP 150/69; TEMP 97.8
== END 2021-04-22 15:55 | disposition home health service (06) | DRG 853 ==
LOC: ERS 18:14 → T4-B 20:21 → IMCU/EMU 04-01 00:03 → 2NO 04-03 17:47 → IMCU/EMU 04-03 19:30 → CCU 04-06 14:37 → IMCU/EMU 04-10 13:21 → 2NO 04-14 05:46
PROVIDERS: ADMIT Internal Medicine; ATTEND Internal Medicine
PROC: 0JBR0ZZ Excision of Left Foot Subcutaneous Tissue and Fascia, Open Approach (ICD-10-PCS; 2021-03-28)
PROC: 0JBR0ZZ Excision of Left Foot Subcutaneous Tissue and Fascia, Open Approach (ICD-10-PCS; 2021-03-30)
PROC: 5A09557 Assistance with Respiratory Ventilation, Greater than 96 Consecutive Hours, Continuous Positive Airway Pressure (ICD-10-PCS; 2021-04-01)
PROC: 30233N1 Transfusion of Nonautologous Red Blood Cells into Peripheral Vein, Percutaneous Approach (ICD-10-PCS; principal; 2021-04-06)
PROC: 06HM33Z Insertion of Infusion Device into Right Femoral Vein, Percutaneous Approach (ICD-10-PCS; 2021-04-07)
PROC: B2111ZZ Fluoroscopy of Multiple Coronary Arteries using Low Osmolar Contrast (ICD-10-PCS; 2021-04-12)
PROC: 0JBR0ZZ Excision of Left Foot Subcutaneous Tissue and Fascia, Open Approach (ICD-10-PCS; 2021-04-15)
PROC: 0Y6J0Z3 Detachment at Left Lower Leg, Low, Open Approach (ICD-10-PCS; 2021-04-19)
DX: A41.9 Sepsis, unspecified organism (principal); N17.0 Acute kidney failure with tubular necrosis; J96.01 Acute respiratory failure with hypoxia; I50.33 Acute on chronic diastolic (congestive) heart failure; G93.41 Metabolic encephalopathy; N18.5 Chronic kidney disease, stage 5; E11.52 Type 2 diabetes mellitus with diabetic peripheral angiopathy with gangrene; L97.429 Non-pressure chronic ulcer of left heel and midfoot with unspecified severity; E87.2 Acidosis; I13.2 Hypertensive heart and chronic kidney disease with heart failure and with stage 5 chronic kidney disease, or end stage renal disease; Z20.822 Contact with and (suspected) exposure to COVID-19; R65.20 Severe sepsis without septic shock; D63.1 Anemia in chronic kidney disease; E78.00 Pure hypercholesterolemia, unspecified; E11.22 Type 2 diabetes mellitus with diabetic chronic kidney disease; E11.65 Type 2 diabetes mellitus with hyperglycemia; E11.621 Type 2 diabetes mellitus with foot ulcer; E11.628 Type 2 diabetes mellitus with other skin complications; E78.5 Hyperlipidemia, unspecified; I48.0 Paroxysmal atrial fibrillation; E87.5 Hyperkalemia; I44.7 Left bundle-branch block, unspecified; E66.9 Obesity, unspecified; I95.9 Hypotension, unspecified; I25.5 Ischemic cardiomyopathy; I49.3 Ventricular premature depolarization; E87.6 Hypokalemia; Z79.01 Long term (current) use of anticoagulants; Z79.82 Long term (current) use of aspirin; Z79.4 Long term (current) use of insulin; Z79.51 Long term (current) use of inhaled steroids; Z79.899 Other long term (current) drug therapy; Z87.891 Personal history of nicotine dependence; Z99.3 Dependence on wheelchair; Z99.2 Dependence on renal dialysis; Z89.511 Acquired absence of right leg below knee; Z83.3 Family history of diabetes mellitus; Z68.26 Body mass index [BMI] 26.0-26.9, adult
CPT/HCPCS: 36415; 36416; 36430; 36600; 71045; 80048; 80053; 80069; 80202; 82040; 82728; 82805; 83036; 83540; 83550; 83605; 83735; 83880; 84100; 84484; 85025; 85027; 85347; 85610; 85652; 85730; 86038; 86140; 86160; 86225; 86850; 86900; 86901; 87040; 87070; 87077; 87186; 87205; 88307; 88311; 93005; 93010; 93306; 93454; 94660; 96365; 96367; 99152; J0132; J0360; J0690; J0692; J1100; J1642; J1644; J1815; J1940; J2001; J2020; J2185; J2250; J2405; J2720; J2916; J3010; J3370; J3490; J7030; J7050; P9016; Q5105; Q9967; U0003; U0005

== ENCOUNTER 2023-11-07 03:03 | Inpatient (IN) | payer MEDICARE ==
[2023-11-07] MEDS ORDERED: KETAMINE 100 MG/ML (5ML VIAL) ONE (03:07)
[2023-11-07] MEDS ORDERED: Sodium Bicarb 50 MEQ/50 ML Abboject 8.4% SYRINGE ONE (03:08)
[2023-11-07] MEDS ORDERED: Calcium Chloride 1 GM/10 ML Abboject SYRINGE ONE (03:08)
[2023-11-07] MEDS ORDERED: CALCIUM GLUC 1 GM/NS 50 ML IV Bag ONE (03:10)
[2023-11-07] MEDS ORDERED: EPINEPHrine 1 MG/10 ML Abboject SYRINGE ONE (03:14)
[2023-11-07] MEDS ORDERED: NOREPINEPHRINE 8 MG/250 ML-D5W 250 ML ONE (03:14)
[2023-11-07] MEDS ORDERED: Rocuronium Bromide 10 MG/ML (10ML VIAL) ONE (03:33)
[2023-11-07 04:09] LABS: Actual Bicarbonate (HCO3a) 18.3 mEq/L (22-28); Analyzer IN Cardio ER; Base Excess (BEa) -8.8 mEq/L (-2.0 to +3.0); CO2 Tension 45.1 mmHg (35.0-45.0); Calcium, Ionized (arterial) 1.23 mmol/L (1.12-1.30); Carboxyhemoglobin (COHb) 1.1 gm% (0.0-3.0); Hematocrit-ABG 25 % (42.0-52.0); Hemoglobin (Hb) 8.5 g/dL (14.0-18.0); pH, Arterial 7.225 (7.35-7.45)
[2023-11-07 04:10] LABS: O2 Tension (PaO2), arterial 53.5 mmHg (> 70.0)
[2023-11-07 04:11] LABS: ALV-art Gradient 603.125 mmHg (0-20); Potassium - ABG Lab 6.67 mmol/L (3.70-5.30); Puncture Site Arterial Line
[2023-11-07] MEDS ORDERED: EPINEPHrine 1 MG/ML VIAL ONE (04:17)
[2023-11-07] MEDS ORDERED: Vasopressin 20 UNITS/ML VIAL ONE (04:17)
[2023-11-07] MEDS ORDERED: Fentanyl CADD 100 ML IV SCH (04:30)
[2023-11-07] MEDS ORDERED: Vasopressin 20 UNITS, Admixture Fee 1 EACH in Sodium Chloride 0.9% 50 ML IV SCH (04:30)
[2023-11-07] MEDS ORDERED: Vasopressin 20 UNITS in Sodium Chloride 0.9% 50 ML IV PRN (04:33)
[2023-11-07] MEDS ORDERED: HumaLOG 300 UNITS/3 ML VIAL SC PRN (04:33)
[2023-11-07] MEDS ORDERED: Morphine 2 MG/ML VIAL SLOW IVP PRN (04:45)
[2023-11-07] MEDS ORDERED: Dextrose 5% in Water 1,000 ML IV PRN (04:45)
[2023-11-07] MEDS ORDERED: Fentanyl BOLUS 250 ML IVPB PRN (04:45)
[2023-11-07] MEDS ORDERED: DISCONTINUE PREVIOUS NARCOTIC PAIN MEDICATIONS AND BENZODIAZEPINES FS SCH (04:45)
[2023-11-07] MEDS ORDERED: Dextrose 50% Abboject 50 ML SYRINGE SLOW IVP PRN (04:45)
[2023-11-07] MEDS ORDERED: Glucagon 1 MG/ML KIT IM PRN (04:45)
[2023-11-07] MEDS ORDERED: Ventilator Sedation Protocol 1 EACH FS SCH (04:45)
[2023-11-07] MEDS ORDERED: Propofol BOLUS 1,000 MG/100 ML VIAL IV PRN (04:45)
[2023-11-07 04:48] LABS: #Basophils Less than 0.03 10x3/uL (0.0-0.2); %Basophils 0.2 % (0.0-1.0); %Eosinophils 0.6 % (0.0-10.0); %Lymphocytes 21.8 % (21.0-51.0); %Neutrophils 68.6 % (42.0-75.0); Hematocrit 26.2 % (42.0-52.0); Hemoglobin 8.1 g/dL (14.0-18.0); Mean Corpuscular HGB CONC 30.9 g/dL (32.0-36.0); Mean Corpuscular Hemoglobin 30.1 pg (27.0-31.0); Mean Corpuscular Volume 97.4 fL (78.0-98.0); Mean Platelet Volume 10.7 fL (7.4-10.4); Platelet Count 227 10x3/uL (130-400); RBC Distribution Width 16.1 % (11.5-14.5); Red Blood Cell (RBC) Count 2.69 mill/uL (4.70-6.10)
[2023-11-07 05:19] LABS: ALT (SGPT) 290 U/L (8-55); AST (SGOT) 265 U/L (5-34); Albumin 2.7 g/dL (3.4-4.8); Alkaline Phosphatase 105 U/L (40-110); Anion Gap 18 mmol/L (10-20); BUN (Urea Nitrogen) 70 mg/dL (8.4-25.7); Bilirubin, Total 0.3 mg/dL (0.2-1.2); Calc. Creatinine Clearance 0 mL/min (70-130); Calcium 9.1 mg/dL (7.8-10.44); Carbon Dioxide 15 mmol/L (23-31); Chloride 119 mmol/L (98-107); Estimated GFR 11; Globulin 3.7 g/dL (2.4-3.5); Glucose 242 mg/dL (83-110); Potassium 6.8 mmol/L (3.5-5.1); Protein, Total 6.4 g/dL (5.8-8.1); Sodium 145 mmol/L (136-145)
[2023-11-07 06:04] LABS: HBSAB Concentration 100.08 mIU/mL; HBsAg Index 0.23 S/CO (0-0.99); Hep B Core Total Ab NONREACTIVE (NonReactive); Hep B Core Total Index 0.43 S/CO (0-0.79); Hep B Surf AB REACTIVE (NonReactive); Hep B Surf Ag NONREACTIVE S/CO (NonReactive); Hep C IgG Ab NONREACTIVE S/CO (NonReactive); Hep C Index 0.18 S/CO (0-0.79)
[2023-11-07 06:16] LABS: Phosphorus 4.9 mg/dL (2.3-4.7)
[2023-11-07 06:18] LABS: Acetaminophen Less than 10 mcg/mL (10.0-30.0); Alcohol Less than 10.0 mg/dL (Less than 10); Salicylate Less than 8.0 mg/dL (15.0-30.0)
[2023-11-07 06:24] LABS: INR-International Normal Ratio 1.5; PTT 35.5 sec (22.9-36.1)
[2023-11-07] MEDS: Sodium Bicarbonate 150 MEQ in Dextrose 5% in Water 1,000 ML IV SCH (06:35)
[2023-11-07] MEDS: Activase 2 MG VIAL CATH SCH (06:56)
[2023-11-07] MEDS: EPINEPHrine 4 MG in Dextrose 5% in Water 250 ML IVP SCH (07:54)
[2023-11-07] MEDS: HumaLOG 300 UNITS/3 ML VIAL SC PRN (08:10)
[2023-11-07 08:41] LABS: Lactic Acid 2.5 mmol/L (0.5-2.2)
[2023-11-07] MEDS: Heparin 5,000 UNITS/ML VIAL SC SCH (10:35)
[2023-11-07] MEDS: Pantoprazole 40 MG VIAL IVP SCH (10:36)
[2023-11-07 10:58] LABS: Amphetamine Not Detected (NotDetected); Barbiturates Screen Not Detected (NotDetected); Benzodiazepine Screen Not Detected (NotDetected); Cocaine Metabolite Screen Not Detected (NotDetected); Methadone Not Detected (NotDetected); Methamphetamine Not Detected (NotDetected); Opiate Screen Not Detected (NotDetected); Oxycodone Screen Not Detected (NotDetected); Phencyclidine (PCP) Not Detected (NotDetected); THC/Cannabinoid Screen Not Detected (NotDetected); Tricyclic Screen Not Detected (NotDetected)
[2023-11-07] MEDS: Ondansetron PF 4 MG/2 ML Vial IVP SCH (11:53)
[2023-11-07 12:30] LABS: Bilirubin Negative (Negative); Blood, Urine 3+ (Negative); CAUTI Indications for Culture Alt mental st,lethar; Glucose, Urine (Dipstick) Normal (Negative); Ketone, Urine Negative (Negative); Leukocyte 500 Leu/uL (Negative); Nitrite Negative (Negative); Protein, Urine (Dipstick) 70 mg/dL (Neg-Trace); RBC/HPF Greater than 50 HPF (0-3); Specific Gravity, Urine 1.013 (1.002-1.036); Squamous Epithelial 0-3 HPF (0-3); WBC/HPF Greater than 50 HPF (0-3); pH, Urine 5.5 (5.0-9.0)
[2023-11-07 12:33] LABS: Bacteria/HPF 1+ HPF (None Seen); Clarity Slightly Cloudy (Clear)
[2023-11-07 12:35] LABS: Urine Culture Reflex Yes Yes
[2023-11-07] MEDS: Lorazepam 2 MG/ML VIAL SLOW IVP PRN (14:43)
[2023-11-07 17:53] LABS: Chloride 107 mmol/L (98-107); Potassium 5.1 mmol/L (3.5-5.1); Sodium 143 mmol/L (136-145)
[2023-11-07 17:54] LABS: Albumin 2.6 g/dL (3.4-4.8); Anion Gap 18 mmol/L (10-20); BUN (Urea Nitrogen) 38 mg/dL (8.4-25.7); BUN/Creatinine Ratio 11.76; Calc. Creatinine Clearance 30 mL/min (70-130); Calcium 8.1 mg/dL (7.8-10.44); Carbon Dioxide 23 mmol/L (23-31); Estimated GFR 19; Glucose 172 mg/dL (83-110); Phosphorus 3.7 mg/dL (2.3-4.7)
[2023-11-07] MEDS: Propofol 1,000 MG/100 ML VIAL IV PRN (18:57)
[2023-11-07] MEDS: Albumin 25% 25 GM (100 mL) BOT IVPB SCH (23:25)
[2023-11-07] MEDS: NOREPINEPHRINE 8 MG/250 ML-D5W 250 ML IVPB PRN (23:30)
[2023-11-08 04:16] LABS: Hematocrit 20.3 % (42.0-52.0); Hemoglobin 6.8 g/dL (14.0-18.0); Mean Corpuscular HGB CONC 33.5 g/dL (32.0-36.0); Mean Corpuscular Hemoglobin 30.1 pg (27.0-31.0); Mean Corpuscular Volume 89.8 fL (78.0-98.0); Mean Platelet Volume 11.5 fL (7.4-10.4); Platelet Count 142 10x3/uL (130-400); RBC Distribution Width 16.4 % (11.5-14.5); Red Blood Cell (RBC) Count 2.26 mill/uL (4.70-6.10)
[2023-11-08 04:29] LABS: ALT (SGPT) 149 U/L (8-55); AST (SGOT) 122 U/L (5-34); Albumin 2.8 g/dL (3.4-4.8); Alkaline Phosphatase 73 U/L (40-110); Anion Gap 19 mmol/L (10-20); BUN (Urea Nitrogen) 43 mg/dL (8.4-25.7); Bilirubin, Total 0.6 mg/dL (0.2-1.2); Calc. Creatinine Clearance 26 mL/min (70-130); Calcium 7.8 mg/dL (7.8-10.44); Carbon Dioxide 23 mmol/L (23-31); Chloride 105 mmol/L (98-107); Estimated GFR 17; Globulin 2.9 g/dL (2.4-3.5); Glucose 183 mg/dL (83-110); Potassium 5.4 mmol/L (3.5-5.1); Protein, Total 5.7 g/dL (5.8-8.1); Sodium 142 mmol/L (136-145)
[2023-11-08 04:59] VITALS: BMI 55.4
[2023-11-08 05:20] LABS: Anisocytosis MODERATE=16-30 cells HPF (0-5); Band 52 % (5-11); Large Platelets 0.9 % (0-5); Lymphocytes 14 % (21-51); Macrocytosis MODERATE=16-30 cells HPF (0-5); Myelocyte 1 % (0-0); Neutrophil 32 % (42-75); Ovalocytes SLIGHT = 2-5 cells HPF (0-1); Platelet Adequacy Comment Platelets Normal; Polychromasia SLIGHT = 2-3 cells HPF (0-2); Smudge Cells 15.1 %
[2023-11-08] MEDS: Piperacillin/Tazobactam 3.375 GM in Sodium Chloride 0.9% 100 ML IVPB SCH ×2 (05:34→09:42)
[2023-11-08 06:57] LABS: CO2 Tension 30.9 mmHg (35.0-45.0); Calcium, Ionized (arterial) 0.96 mmol/L (1.12-1.30); Carboxyhemoglobin (COHb) 1.6 gm% (0.0-3.0); Hematocrit-ABG 17 % (42.0-52.0); O2 Tension (PaO2), arterial 144.1 mmHg (> 70.0); Potassium - ABG Lab 5.05 mmol/L (3.70-5.30); pH, Arterial 7.525 (7.35-7.45)
[2023-11-08 06:58] LABS: Hemoglobin (Hb) 5.7 g/dL (14.0-18.0)
[2023-11-08 06:59] LABS: ALV-art Gradient 245.075 mmHg (0-20); Puncture Site ALINE
[2023-11-08] MEDS: EPOETIN ALFA-EPBX (ESRD) 10,000 UNITS/ML VIAL SC SCH (09:40)
[2023-11-08 21:54] LABS: Hematocrit 22.3 % (42.0-52.0); Hemoglobin 7.5 g/dL (14.0-18.0)
[2023-11-09 05:01] LABS: #Basophils Less than 0.03 10x3/uL (0.0-0.2); %Basophils 0.1 % (0.0-1.0); %Eosinophils 0.9 % (0.0-10.0); %Lymphocytes 11.7 % (21.0-51.0); %Monocytes 3.6 % (0.0-10.0); %Neutrophils 82.7 % (42.0-75.0); Hematocrit 21.8 % (42.0-52.0); Hemoglobin 7.1 g/dL (14.0-18.0); Mean Corpuscular HGB CONC 32.6 g/dL (32.0-36.0); Mean Corpuscular Hemoglobin 29.7 pg (27.0-31.0); Mean Corpuscular Volume 91.2 fL (78.0-98.0); Mean Platelet Volume 11.2 fL (7.4-10.4); Platelet Count 133 10x3/uL (130-400); RBC Distribution Width 15.8 % (11.5-14.5); Red Blood Cell (RBC) Count 2.39 mill/uL (4.70-6.10)
[2023-11-09 05:14] LABS: ALT (SGPT) 99 U/L (8-55); AST (SGOT) 117 U/L (5-34); Albumin 2.6 g/dL (3.4-4.8); Alkaline Phosphatase 88 U/L (40-110); Anion Gap 17 mmol/L (10-20); BUN (Urea Nitrogen) 24 mg/dL (8.4-25.7); Bilirubin, Total 0.7 mg/dL (0.2-1.2); Calc. Creatinine Clearance 35 mL/min (70-130); Carbon Dioxide 30 mmol/L (23-31); Chloride 95 mmol/L (98-107); Estimated GFR 24; Globulin 3.7 g/dL (2.4-3.5); Glucose 103 mg/dL (83-110); Potassium 3.9 mmol/L (3.5-5.1); Protein, Total 6.3 g/dL (5.8-8.1); Sodium 138 mmol/L (136-145)
[2023-11-09 05:22] LABS: Anisocytosis SLIGHT = 6-15 cells HPF (0-5); Band 35 % (5-11); Eosinophils 1 % (0-10); Hypochromia SLIGHT = 6-15 cells HPF (0-5); Large Platelets 3.9 % (0-5); Lymphocytes 8 % (21-51); Metamyelocyte 7 % (0-0); Monocytes 2 % (0-10); Neutrophil 47 % (42-75); Platelet Adequacy Comment Platelets Normal; Poikilocytosis SLIGHT = 6-15 cells HPF (0-5); Polychromasia SLIGHT = 2-3 cells HPF (0-2)
[2023-11-09 07:06] LABS: Actual Bicarbonate (HCO3a) 30.7 mEq/L (22-28); Base Excess (BEa) 7.1 mEq/L (-2.0 to +3.0); CO2 Tension 39.6 mmHg (35.0-45.0); Calcium, Ionized (arterial) 0.92 mmol/L (1.12-1.30); Carboxyhemoglobin (COHb) 1.7 gm% (0.0-3.0); Hematocrit-ABG 21 % (42.0-52.0); Hemoglobin (Hb) 7.3 g/dL (14.0-18.0); Potassium - ABG Lab 3.69 mmol/L (3.70-5.30); pH, Arterial 7.508 (7.35-7.45)
[2023-11-09 07:15] LABS: Puncture Site Arterial Line
[2023-11-09] MEDS: Carvedilol 6.25 MG TAB PO SCH ×2 (15:59→20:54)
[2023-11-09] MEDS ORDERED: hydrALAZINE 20 MG/ML VIAL SLOW IVP PRN (23:00)
[2023-11-09] MEDS: Labetalol HCl 100 MG/20 ML VIAL SLOW IVP PRN (23:08)
[2023-11-10] MEDS: Labetalol HCl 100 MG/20 ML VIAL SLOW IVP PRN (02:23)
[2023-11-10] MEDS: cloNIDine 0.1mg/24 Hour PATCH TD SCH (02:24)
[2023-11-10 04:28] LABS: #Basophils Less than 0.03 10x3/uL (0.0-0.2); %Basophils 0.2 % (0.0-1.0); %Eosinophils 0.7 % (0.0-10.0); %Lymphocytes 13.1 % (21.0-51.0); %Neutrophils 80.6 % (42.0-75.0); Hematocrit 20.5 % (42.0-52.0); Hemoglobin 6.6 g/dL (14.0-18.0); Mean Corpuscular HGB CONC 32.2 g/dL (32.0-36.0); Mean Corpuscular Hemoglobin 29.7 pg (27.0-31.0); Mean Corpuscular Volume 92.3 fL (78.0-98.0); Mean Platelet Volume 11.5 fL (7.4-10.4); Platelet Count 136 10x3/uL (130-400); RBC Distribution Width 15.9 % (11.5-14.5); Red Blood Cell (RBC) Count 2.22 mill/uL (4.70-6.10)
[2023-11-10 04:51] LABS: ALT (SGPT) 66 U/L (8-55); AST (SGOT) 104 U/L (5-34); Albumin 2.4 g/dL (3.4-4.8); Alkaline Phosphatase 80 U/L (40-110); Anion Gap 18 mmol/L (10-20); BUN (Urea Nitrogen) 37 mg/dL (8.4-25.7); Bilirubin, Total 0.5 mg/dL (0.2-1.2); Calc. Creatinine Clearance 26 mL/min (70-130); Carbon Dioxide 27 mmol/L (23-31); Chloride 97 mmol/L (98-107); Estimated GFR 17; Globulin 3.7 g/dL (2.4-3.5); Glucose 111 mg/dL (83-110); Potassium 3.6 mmol/L (3.5-5.1); Protein, Total 6.1 g/dL (5.8-8.1); Sodium 138 mmol/L (136-145)
[2023-11-10 07:34] LABS: Actual Bicarbonate (HCO3a) 27.9 mEq/L (22-28); CO2 Tension 38.6 mmHg (35.0-45.0); Calcium, Ionized (arterial) 0.97 mmol/L (1.12-1.30); Carboxyhemoglobin (COHb) 1.3 gm% (0.0-3.0); Hematocrit-ABG 21 % (42.0-52.0); Hemoglobin (Hb) 7.1 g/dL (14.0-18.0); O2 Tension (PaO2), arterial 111.5 mmHg (> 70.0); Potassium - ABG Lab 3.49 mmol/L (3.70-5.30); pH, Arterial 7.477 (7.35-7.45)
[2023-11-10 07:46] LABS: Puncture Site Arterial Line
[2023-11-10] MEDS ORDERED: cloNIDine 0.1mg/24 Hour PATCH TD SCH (09:00)
[2023-11-10] MEDS: hydrALAZINE 20 MG/ML VIAL SLOW IVP PRN (09:15)
[2023-11-10 15:12] LABS: Hematocrit 26.4 % (42.0-52.0)
[2023-11-11 05:02] LABS: #Basophils 0.03 10x3/uL (0.0-0.2); %Basophils 0.3 % (0.0-1.0); %Eosinophils 0.9 % (0.0-10.0); %Lymphocytes 10.1 % (21.0-51.0); %Monocytes 5.1 % (0.0-10.0); %Neutrophils 80.7 % (42.0-75.0); Hematocrit 27.5 % (42.0-52.0); Hemoglobin 9.2 g/dL (14.0-18.0); Mean Corpuscular HGB CONC 33.5 g/dL (32.0-36.0); Mean Corpuscular Hemoglobin 30.7 pg (27.0-31.0); Mean Corpuscular Volume 91.7 fL (78.0-98.0); Mean Platelet Volume 10.5 fL (7.4-10.4); Platelet Count 168 10x3/uL (130-400)
[2023-11-11 05:27] LABS: ALT (SGPT) 44 U/L (8-55); AST (SGOT) 93 U/L (5-34); Albumin 2.5 g/dL (3.4-4.8); Alkaline Phosphatase 86 U/L (40-110); Anion Gap 21 mmol/L (10-20); BUN (Urea Nitrogen) 25 mg/dL (8.4-25.7); Bilirubin, Total 0.6 mg/dL (0.2-1.2); Calc. Creatinine Clearance 40 mL/min (70-130); Calcium 8.6 mg/dL (7.8-10.44); Carbon Dioxide 24 mmol/L (23-31); Chloride 97 mmol/L (98-107); Estimated GFR 28; Globulin 4.2 g/dL (2.4-3.5); Glucose 158 mg/dL (83-110); Potassium 3.1 mmol/L (3.5-5.1); Protein, Total 6.7 g/dL (5.8-8.1); Sodium 139 mmol/L (136-145)
[2023-11-11] MEDS: Potassium Chloride 20 MEQ in Premix 1 BAG IVPB SCH (07:59)
[2023-11-12 04:44] LABS: Hematocrit 27.8 % (42.0-52.0); Hemoglobin 9.3 g/dL (14.0-18.0); Mean Corpuscular HGB CONC 33.5 g/dL (32.0-36.0); Mean Corpuscular Hemoglobin 30.8 pg (27.0-31.0); Mean Corpuscular Volume 92.1 fL (78.0-98.0); Mean Platelet Volume 10.9 fL (7.4-10.4); Platelet Count 186 10x3/uL (130-400); RBC Distribution Width 15.1 % (11.5-14.5); Red Blood Cell (RBC) Count 3.02 mill/uL (4.70-6.10)
[2023-11-12 04:57] LABS: ALT (SGPT) 37 U/L (8-55); AST (SGOT) 72 U/L (5-34); Albumin 2.5 g/dL (3.4-4.8); Alkaline Phosphatase 80 U/L (40-110); Anion Gap 21 mmol/L (10-20); BUN (Urea Nitrogen) 37 mg/dL (8.4-25.7); Bilirubin, Total 0.5 mg/dL (0.2-1.2); Calc. Creatinine Clearance 33 mL/min (70-130); Calcium 8.5 mg/dL (7.8-10.44); Carbon Dioxide 24 mmol/L (23-31); Chloride 99 mmol/L (98-107); Estimated GFR 23; Globulin 4.2 g/dL (2.4-3.5); Glucose 179 mg/dL (83-110); Potassium 3.2 mmol/L (3.5-5.1); Protein, Total 6.7 g/dL (5.8-8.1); Sodium 141 mmol/L (136-145)
[2023-11-12 06:23] LABS: Anisocytosis MODERATE=16-30 cells HPF (0-5); Band 5 % (5-11); Large Platelets 6.9 % (0-5); Lymphocytes 2 % (21-51); Macrocytosis MODERATE=16-30 cells HPF (0-5); Monocytes 5 % (0-10); Neutrophil 87 % (42-75); Ovalocytes SLIGHT = 2-5 cells HPF (0-1); Platelet Adequacy Comment Platelets Normal; Poikilocytosis SLIGHT = 6-15 cells HPF (0-5); Polychromasia MODERATE = 3-4 cells HPF (0-2)
[2023-11-12] MEDS: Potassium Chloride 20 MEQ in Premix 1 BAG IVPB SCH (09:43)
[2023-11-12] MEDS ORDERED: Potassium Bicarbonate/Cit Ac 20 MEQ TAB PER TUBE SCH (10:00)
[2023-11-12 10:17] LABS: Magnesium 2.1 mg/dL (1.6-2.6)
[2023-11-12] MEDS ORDERED: Atropine Sulfate 1 mg/1 ml Vial IVP PRN (20:46)
[2023-11-12] MEDS ORDERED: Fentanyl BOLUS 250 ML IVPB PRN (20:54)
[2023-11-12 21:27] LABS: Anion Gap 21 mmol/L (10-20); BUN (Urea Nitrogen) 43 mg/dL (8.4-25.7); Calc. Creatinine Clearance 28 mL/min (70-130); Calcium 8.6 mg/dL (7.8-10.44); Carbon Dioxide 24 mmol/L (23-31); Chloride 102 mmol/L (98-107); Estimated GFR 19; Glucose 162 mg/dL (83-110); Magnesium 2.3 mg/dL (1.6-2.6); Potassium 3.4 mmol/L (3.5-5.1); Sodium 144 mmol/L (136-145)
[2023-11-12] MEDS: Fentanyl CADD 100 ML IV SCH (21:41)
[2023-11-13 04:59] LABS: Hematocrit 27.1 % (42.0-52.0); Hemoglobin 8.8 g/dL (14.0-18.0); Mean Corpuscular HGB CONC 32.5 g/dL (32.0-36.0); Mean Corpuscular Hemoglobin 30.3 pg (27.0-31.0); Mean Corpuscular Volume 93.4 fL (78.0-98.0); Mean Platelet Volume 10.2 fL (7.4-10.4); Platelet Count 190 10x3/uL (130-400); RBC Distribution Width 15.5 % (11.5-14.5)
[2023-11-13 05:18] LABS: ALT (SGPT) 29 U/L (8-55); AST (SGOT) 64 U/L (5-34); Albumin 2.3 g/dL (3.4-4.8); Alkaline Phosphatase 78 U/L (40-110); Anion Gap 17 mmol/L (10-20); BUN (Urea Nitrogen) 48 mg/dL (8.4-25.7); Bilirubin, Total 0.4 mg/dL (0.2-1.2); Calc. Creatinine Clearance 26 mL/min (70-130); Calcium 8.6 mg/dL (7.8-10.44); Carbon Dioxide 26 mmol/L (23-31); Chloride 102 mmol/L (98-107); Estimated GFR 18; Globulin 4.2 g/dL (2.4-3.5); Glucose 161 mg/dL (83-110); Potassium 3.2 mmol/L (3.5-5.1); Protein, Total 6.5 g/dL (5.8-8.1); Sodium 142 mmol/L (136-145)
[2023-11-13 05:44] LABS: Anisocytosis SLIGHT = 6-15 cells HPF (0-5); Band 9 % (5-11); Eosinophils 1 % (0-10); Hypochromia SLIGHT = 6-15 cells HPF (0-5); Lymphocytes 10 % (21-51); Metamyelocyte 1 % (0-0); Monocytes 3 % (0-10); Myelocyte 2 % (0-0); Neutrophil 74 % (42-75); Platelet Adequacy Comment Platelets Normal; Polychromasia SLIGHT = 2-3 cells HPF (0-2)
[2023-11-13] MEDS: Potassium Chloride 20 MEQ in Premix 1 BAG IVPB SCH (06:23)
[2023-11-14 04:59] LABS: Hemoglobin 8.5 g/dL (14.0-18.0); Mean Corpuscular HGB CONC 32.7 g/dL (32.0-36.0); Mean Corpuscular Hemoglobin 30.4 pg (27.0-31.0); Mean Corpuscular Volume 92.9 fL (78.0-98.0); Mean Platelet Volume 10.5 fL (7.4-10.4); Platelet Count 225 10x3/uL (130-400); RBC Distribution Width 15.9 % (11.5-14.5)
[2023-11-14 05:12] LABS: ALT (SGPT) 33 U/L (8-55); AST (SGOT) 65 U/L (5-34); Albumin 2.3 g/dL (3.4-4.8); Alkaline Phosphatase 78 U/L (40-110); Anion Gap 20 mmol/L (10-20); BUN (Urea Nitrogen) 60 mg/dL (8.4-25.7); Bilirubin, Total 0.4 mg/dL (0.2-1.2); Calc. Creatinine Clearance 19 mL/min (70-130); Calcium 8.3 mg/dL (7.8-10.44); Carbon Dioxide 23 mmol/L (23-31); Chloride 104 mmol/L (98-107); Estimated GFR 12; Globulin 4.2 g/dL (2.4-3.5); Glucose 169 mg/dL (83-110); Potassium 3.5 mmol/L (3.5-5.1); Protein, Total 6.5 g/dL (5.8-8.1); Sodium 143 mmol/L (136-145)
[2023-11-14 05:27] LABS: Band 13 % (5-11); Eosinophils 1 % (0-10); Hypochromia SLIGHT = 6-15 cells HPF (0-5); Large Platelets 3.9 % (0-5); Lymphocytes 7 % (21-51); Monocytes 5 % (0-10); Neutrophil 74 % (42-75); Nucleated RBC (Manual Ct) 1 % (0); Platelet Adequacy Comment Platelets Normal; Polychromasia SLIGHT = 2-3 cells HPF (0-2)
[2023-11-15 04:02] LABS: #Basophils 0.03 10x3/uL (0.0-0.2); %Basophils 0.2 % (0.0-1.0); %Eosinophils 0.4 % (0.0-10.0); %Lymphocytes 9.8 % (21.0-51.0); %Monocytes 5.4 % (0.0-10.0); %Neutrophils 81.3 % (42.0-75.0); Hematocrit 24.9 % (42.0-52.0); Hemoglobin 7.8 g/dL (14.0-18.0); Mean Corpuscular HGB CONC 31.3 g/dL (32.0-36.0); Mean Corpuscular Hemoglobin 30.2 pg (27.0-31.0); Mean Corpuscular Volume 96.5 fL (78.0-98.0); Mean Platelet Volume 9.8 fL (7.4-10.4); Platelet Count 239 10x3/uL (130-400); RBC Distribution Width 16.1 % (11.5-14.5); Red Blood Cell (RBC) Count 2.58 mill/uL (4.70-6.10)
[2023-11-15 04:18] LABS: ALT (SGPT) 23 U/L (8-55); AST (SGOT) 58 U/L (5-34); Albumin 2.1 g/dL (3.4-4.8); Alkaline Phosphatase 80 U/L (40-110); Anion Gap 20 mmol/L (10-20); BUN (Urea Nitrogen) 75 mg/dL (8.4-25.7); Bilirubin, Total 0.4 mg/dL (0.2-1.2); Calc. Creatinine Clearance 16 mL/min (70-130); Calcium 8.7 mg/dL (7.8-10.44); Carbon Dioxide 26 mmol/L (23-31); Chloride 105 mmol/L (98-107); Estimated GFR 10; Globulin 4.5 g/dL (2.4-3.5); Glucose 192 mg/dL (83-110); Potassium 3.6 mmol/L (3.5-5.1); Protein, Total 6.6 g/dL (5.8-8.1); Sodium 147 mmol/L (136-145)
[2023-11-15] MEDS: Lansoprazole 30 MG/10 ML UDCUP PER TUBE SCH (09:09)
[2023-11-15 15:41] VITALS: BMI 34.7
[2023-11-16 04:43] LABS: #Basophils 0.03 10x3/uL (0.0-0.2); %Basophils 0.2 % (0.0-1.0); %Eosinophils 0.6 % (0.0-10.0); %Monocytes 4.4 % (0.0-10.0); %Neutrophils 81.8 % (42.0-75.0); Hemoglobin 7.7 g/dL (14.0-18.0); Mean Corpuscular HGB CONC 32.1 g/dL (32.0-36.0); Mean Corpuscular Hemoglobin 30.2 pg (27.0-31.0); Mean Corpuscular Volume 94.1 fL (78.0-98.0); Mean Platelet Volume 10.3 fL (7.4-10.4); Platelet Count 264 10x3/uL (130-400); RBC Distribution Width 15.9 % (11.5-14.5); Red Blood Cell (RBC) Count 2.55 mill/uL (4.70-6.10)
[2023-11-16 05:13] LABS: ALT (SGPT) 18 U/L (8-55); AST (SGOT) 56 U/L (5-34); Alkaline Phosphatase 84 U/L (40-110); Anion Gap 17 mmol/L (10-20); BUN (Urea Nitrogen) 34 mg/dL (8.4-25.7); Bilirubin, Total 0.4 mg/dL (0.2-1.2); Calc. Creatinine Clearance 26 mL/min (70-130); Calcium 8.8 mg/dL (7.8-10.44); Carbon Dioxide 26 mmol/L (23-31); Chloride 103 mmol/L (98-107); Estimated GFR 18; Globulin 4.7 g/dL (2.4-3.5); Glucose 181 mg/dL (83-110); Potassium 3.6 mmol/L (3.5-5.1); Protein, Total 6.7 g/dL (5.8-8.1); Sodium 142 mmol/L (136-145)
[2023-11-17 05:00] LABS: Albumin 1.9 g/dL (3.4-4.8); Chloride 103 mmol/L (98-107); Glucose 178 mg/dL (83-110); Potassium 3.5 mmol/L (3.5-5.1); Sodium 143 mmol/L (136-145)
[2023-11-17 05:01] LABS: ALT (SGPT) 18 U/L (8-55); AST (SGOT) 49 U/L (5-34); Alkaline Phosphatase 87 U/L (40-110); Anion Gap 21 mmol/L (10-20); BUN (Urea Nitrogen) 47 mg/dL (8.4-25.7); Bilirubin, Total 0.3 mg/dL (0.2-1.2); Calc. Creatinine Clearance 20 mL/min (70-130); Carbon Dioxide 23 mmol/L (23-31); Estimated GFR 13; Protein, Total 6.9 g/dL (5.8-8.1)
[2023-11-17 05:43] LABS: #Basophils 0.05 10x3/uL (0.0-0.2); %Basophils 0.4 % (0.0-1.0); %Eosinophils 1.2 % (0.0-10.0); %Lymphocytes 10.5 % (21.0-51.0); %Monocytes 5.3 % (0.0-10.0); %Neutrophils 80.4 % (42.0-75.0); Hematocrit 24.9 % (42.0-52.0); Mean Corpuscular HGB CONC 32.1 g/dL (32.0-36.0); Mean Corpuscular Hemoglobin 30.2 pg (27.0-31.0); Mean Platelet Volume 10.4 fL (7.4-10.4); Platelet Count 309 10x3/uL (130-400); RBC Distribution Width 15.9 % (11.5-14.5); Red Blood Cell (RBC) Count 2.65 mill/uL (4.70-6.10)
[2023-11-18 04:37] LABS: #Basophils 0.04 10x3/uL (0.0-0.2); %Basophils 0.3 % (0.0-1.0); %Eosinophils 1.2 % (0.0-10.0); %Lymphocytes 11.7 % (21.0-51.0); %Monocytes 5.3 % (0.0-10.0); %Neutrophils 78.6 % (42.0-75.0); Hematocrit 25.3 % (42.0-52.0); Mean Corpuscular HGB CONC 31.6 g/dL (32.0-36.0); Mean Corpuscular Hemoglobin 30.5 pg (27.0-31.0); Mean Corpuscular Volume 96.6 fL (78.0-98.0); Mean Platelet Volume 10.1 fL (7.4-10.4); Platelet Count 371 10x3/uL (130-400); RBC Distribution Width 15.7 % (11.5-14.5); Red Blood Cell (RBC) Count 2.62 mill/uL (4.70-6.10)
[2023-11-18 04:58] LABS: ALT (SGPT) 11 U/L (8-55); AST (SGOT) 47 U/L (5-34); Albumin 2.1 g/dL (3.4-4.8); Alkaline Phosphatase 84 U/L (40-110); Anion Gap 22 mmol/L (10-20); BUN (Urea Nitrogen) 62 mg/dL (8.4-25.7); Bilirubin, Total 0.3 mg/dL (0.2-1.2); Calc. Creatinine Clearance 17 mL/min (70-130); Calcium 9.3 mg/dL (7.8-10.44); Carbon Dioxide 24 mmol/L (23-31); Chloride 102 mmol/L (98-107); Estimated GFR 10; Glucose 166 mg/dL (83-110); Potassium 3.8 mmol/L (3.5-5.1); Protein, Total 7.1 g/dL (5.8-8.1); Sodium 144 mmol/L (136-145)
[2023-11-18 06:55] VITALS: BP 151/85
[2023-11-18 11:04] VITALS: TEMP 96.7
== END 2023-11-18 14:10 | disposition expired | DRG 207 ==
LOC: ERS 03:03 → CCU 05:44
PROVIDERS: ADMIT Emergency Medicine; ATTEND Emergency Medicine
PROC: 02HV33Z Insertion of Infusion Device into Superior Vena Cava, Percutaneous Approach (ICD-10-PCS; principal; 2023-11-07)
PROC: 5A1955Z Respiratory Ventilation, Greater than 96 Consecutive Hours (ICD-10-PCS; 2023-11-07)
PROC: 0BH17EZ Insertion of Endotracheal Airway into Trachea, Via Natural or Artificial Opening (ICD-10-PCS; 2023-11-07)
PROC: 4A133R1 Monitoring of Arterial Saturation, Peripheral, Percutaneous Approach (ICD-10-PCS; 2023-11-07)
PROC: 03HY32Z Insertion of Monitoring Device into Upper Artery, Percutaneous Approach (ICD-10-PCS; 2023-11-07)
PROC: 4A133B1 Monitoring of Arterial Pressure, Peripheral, Percutaneous Approach (ICD-10-PCS; 2023-11-07)
PROC: 4A133J1 Monitoring of Arterial Pulse, Peripheral, Percutaneous Approach (ICD-10-PCS; 2023-11-07)
PROC: 3E043XZ Introduction of Vasopressor into Central Vein, Percutaneous Approach (ICD-10-PCS; 2023-11-07)
PROC: 30233J1 Transfusion of Nonautologous Serum Albumin into Peripheral Vein, Percutaneous Approach (ICD-10-PCS; 2023-11-07)
PROC: 3E03317 Introduction of Other Thrombolytic into Peripheral Vein, Percutaneous Approach (ICD-10-PCS; 2023-11-07)
PROC: 30233N1 Transfusion of Nonautologous Red Blood Cells into Peripheral Vein, Percutaneous Approach (ICD-10-PCS; 2023-11-08)
PROC: 4A00X4Z Measurement of Central Nervous Electrical Activity, External Approach (ICD-10-PCS; 2023-11-08)
PROC: 3E03329 Introduction of Other Anti-infective into Peripheral Vein, Percutaneous Approach (ICD-10-PCS; 2023-11-08)
PROC: 4A00X4Z Measurement of Central Nervous Electrical Activity, External Approach (ICD-10-PCS; 2023-11-13)
PROC: 5A1D70Z Performance of Urinary Filtration, Intermittent, Less than 6 Hours Per Day (ICD-10-PCS; 2023-11-15)
DX: J96.01 Acute respiratory failure with hypoxia (principal); G93.41 Metabolic encephalopathy; N18.6 End stage renal disease; Z66 Do not resuscitate; Z51.5 Encounter for palliative care; K72.00 Acute and subacute hepatic failure without coma; G93.1 Anoxic brain damage, not elsewhere classified; I50.32 Chronic diastolic (congestive) heart failure; I13.2 Hypertensive heart and chronic kidney disease with heart failure and with stage 5 chronic kidney disease, or end stage renal disease; E87.20 Acidosis, unspecified; N17.9 Acute kidney failure, unspecified; T82.49XA Other complication of vascular dialysis catheter, initial encounter; E87.5 Hyperkalemia; E78.5 Hyperlipidemia, unspecified; I48.91 Unspecified atrial fibrillation; E11.22 Type 2 diabetes mellitus with diabetic chronic kidney disease; R74.01 Elevation of levels of liver transaminase levels; D63.1 Anemia in chronic kidney disease; I44.7 Left bundle-branch block, unspecified; E87.6 Hypokalemia; I95.9 Hypotension, unspecified; R57.0 Cardiogenic shock; I46.8 Cardiac arrest due to other underlying condition; E11.51 Type 2 diabetes mellitus with diabetic peripheral angiopathy without gangrene; Z99.2 Dependence on renal dialysis; Z79.899 Other long term (current) drug therapy; Z89.512 Acquired absence of left leg below knee; Z89.511 Acquired absence of right leg below knee; Z87.891 Personal history of nicotine dependence; Z79.4 Long term (current) use of insulin; Z79.01 Long term (current) use of anticoagulants
CPT/HCPCS: 31500; 36415; 36416; 36430; 36556; 70450; 71045; 74018; 78610; 80053; 80306; 80307; 81001; 82805; 83605; 83735; 83880; 84100; 84145; 84443; 85025; 85610; 85730; 86704; 86706; 86803; 86850; 86900; 86901; 87077; 87086; 87186; 87340; 90935; 93005; 93010; 93306; 94002; 94003; 94760; 95700; 95711; 95712; 95819; 96365; 96366; 96368; A9521; C9113; G0257; J0171; J0360; J0613; J1642; J1644; J1815; J2060; J2405; J2543; J2704; J2997; J3010; J3480; J3490; J7070; P9016; P9047; Q5105